=== PATIENT | female | born 1945 | race Caucasian/White ===

== ENCOUNTER 2016-10-14 04:42 | Emergency (ER) | payer MEDICARE ==
[~2016-10-14 04:42] MED LIST: ARMOUR THYROID30 MG PO; BACLOFEN10 MG PO; BENADRYL INJ50 MG/ML IV; CARAFATE1 G PO; COLACE100 MG PO; DIFLUCAN100 MG PO; DILAUDID2 MG PO; DITROPAN X5 MG/BOTTL PO; ELIQUIS2.5 MG PO; HYDROXYZINE HCL50 MG PO; IPRAT-ALBUT 0.5-3 ML UPD; K-DUR20 MEQ PO; LEVAQUIN500 MG PO; LIBRAX CAPSULE1 CAP PO; MULTI-DAY VITAM1 TAB PO; NEURONTIN800 MG PO; NICODERM C1 PATCH .1 TD; NICODERM C1 PATCH .2 TRANSDERM; NORCO 10/325 TA1 TA1 PO; NYSTATIN ORAL SU5 ML PO; ONDANSETRON4 MG/2 M3 IV; OXYBUTYNIN CHLOR5 MG PO; PERCOCET 10/3251 TA1 PO; PRILOSEC20 MG PO; PROTONIX40 MG PO; PROZAC20 MG PO; REGLAN10 MG PO; STERAPRED 5MG 125 MG PO; VALIUM10 MG PO; VOLTAREN100 GM TP; XANAX0.25 MG PO; XOPENEX 0.0.63 MG/3 UPD; ZANTAC300 MG PO; ZOFRAN4 MG PO
== END 2016-10-14 05:40 | disposition home or self-care (01) ==
LOC: D.ER 04:42
DX: S00.03XA Contusion of scalp, initial encounter (principal); W18.11XA Fall from or off toilet without subsequent striking against object, initial encounter; Y93.89 Activity, other specified; Y92.012 Bathroom of single-family (private) house as the place of occurrence of the external cause; S80.01XA Contusion of right knee, initial encounter

== ENCOUNTER → 2016-10-23 14:15 | Outpatient (CLI) | payer MEDICARE ==
[2015-03-04 10:55] VITALS: BMI 18.2
== END | disposition home or self-care (01) ==
LOC: D.CT 14:15
DX: M25.561 Pain in right knee (principal); W19.XXXA Unspecified fall, initial encounter

== ENCOUNTER 2017-01-22 17:15 | Observation (INO) | payer MEDICARE ==
[~2017-01-22] VITALS: Ht 172.7 cm; Wt 64.9 kg
--- NOTE | ~2017-01-22 | EC ---
PATIENT:CHYNA LINO DATE OF SERVICE: 01/23/17 SEX: F MEDICAL RECORD: [id number] DATE OF : [birth year] LOCATION:D.MS [place] AGE OF PATIENT: 71 ADMISSION DATE: 01/22/17 REFERRING PHYSICIAN: INTERPRETING PHYSICIAN: JUANA KELLEY MD ECHOCARDIOGRAM REPORT ECHO CHARGES 4 ECHO COMPLETE CLINICAL DIAGNOSIS: TIA ECHOCARDIOGRAPHIC MEASUREMENTS (adult normal given) AC root (d.<3.7cm) 3.1 cm LV Septum d (<1.2 cm> 1.2 cm Valve Excursion 1.2 cm LV Septum (systole) 1.9 cm Left Atria (s.<4.0cm> 2.9 cm LVPW d(<1.2cm) 1.1 cm RV (d.<2.3cm) 2.5 cm LVPW (sytole) 1.7 cm LV diastole(<5.6CM) 5.3 cm MV E-F(>70mm/sec) cm LV systole 2.9 cm LVOT Diameter 1.8 cm MV exc.(>10mm) cm Est.ejection fraction (50-75%) % Pericardial Effusion N DOPPLER: LVIT cm/sec A 56.0 cm/sec E 120 cm/sec LA cm/sec RVSP 48.0 mmHg LVOT 106 cm/sec AOP1/2T m/s Asc. Ao 139 cm/sec RVOT 52.0 cm/sec RA cm/sec PA 83.0 cm/sec AV Gradient Peak 7.7 mmHg AV Mean 4.1 mmHg AV Area 1.9 cm MV Gradient Peak 5.1 mmHg MV Mean 1.9 mmHg MV Area cm COMMENTS: Personal Banking Representative: 1 SHARONA [place] Outside Food Server: 1 Dr. Kelley TAPE# PACS TWO-DIMENSIONAL ECHOCARDIOGRAM WITH DOPPLER 1. Left ventricular chamber size is within normal limits. Left ventricular systolic function is normal. Overall ejection fraction is estimated at 60 percent. 2. Left atrium, right atrium, and right ventricular chamber sizes are within normal limits. 3. Valvular structures have normal structure and motion. 4. Doppler interrogation reveals trace mitral regurgitation, moderate tricuspid regurgitation; no other valvular insufficiency or stenosis. Pulmonary artery systolic pressure is mildly elevated estimated at 48 millimeters of mercury. ECHOCARDIOGRAM REPORT [id number] CHYNA LINO 5. No evidence of pericardial effusion or left ventricular thrombus. JUANA KELLEY MD CC: [id number] DICTATION DATE: 01/23/[address] PROCESSOR: VIMAL 01/24/17 1403 ADM IN [facility] [address] [id number]
[2017-01-22 18:24] LABS: BASOPHILS 0 % (0-2); EOSINOPHILS 0 % (0-7); HEMOGLOBIN 15.8 g/dL (12-16); IMMATURE GRANULOCYTES 0.2 % (0-5); LYMPHOCYTES 14.8 % (15-50); MCHC 33.6 g/dL (31.0-37.0); MCV 92.2 fL (80.0-100.0); MEAN PLATELET VOLUME 11.4 fL (7.4-10.4); MONOCYTES 5.8 % (2-11); NEUTROPHILS 79.2 % (40-80); RDW 14.2 % (11.5-14.5); WBC 8.5 10x3/uL (4.8-10.8)
[2017-01-22 18:31] LABS: PLATELET COUNT 146 10x3/uL (130-400)
[2017-01-22 18:47] LABS: APTT 27.9 SECONDS (22.8-39.4); INR 0.97 (0.85-1.17); PROTIME 12.7 SECONDS (11.6-15.0)
[2017-01-22 18:55] LABS: ALBUMIN 3.6 g/dL (3.4-5.0); ALKALINE PHOSPHATASE 87 U/L (46-116); ALT (SGPT) 13 U/L (10-68); CALC OSMOLALITY 277 mosm/kg (275-300); CALCIUM 9.3 mg/dL (8.5-10.1); CARBON DIOXIDE 23.9 mmol/L (21.0-32.0); CHLORIDE - SERUM 102 mmol/L (98-107); CREATININE - SERUM 0.8 mg/dL (0.6-1.3); GLUCOSE 117 mg/dL (74-106); POTASSIUM - SERUM 4.5 mmol/L (3.5-5.1); SODIUM 136 mmol/L (136-145); UREA NITROGEN 26 mg/dL (7-18); eGFR NON AFRICAN AMERICAN 75 mL/min (90-120)
[2017-01-22 20:39] LABS: CKMB 2.2 U/L (0.0-3.6); CREATINE KINASE 45 UL (21-215); TROPONIN-I 0.023 ng/mL (0.000-0.060)
--- NOTE | 2017-01-22 23:00 | NUR ---
RECIEVED PATIENT VIA STRETCHER WITH TECH FROM THE EMERGENCY DEPT. PATIENT AMBULATED FROM THE STRETCHER, OUTSIDE THE ROOM, TO THE BED, HELD PATIENT'S HAND TO PROVIDE SUPPORT, MINIMAL ASSISTANCE REQUIRED. PATIENT IS ALERT AND ORIENTED X'S 4. RESPIRATIONS ARE UNLABORED ON ROOM AIR, BUT AUDIBLE EXPIRATORY WHEEZES NOTED UPON AUSCULATION WITH STETHOSCOPE. PATIENT'S LEFT SIDE OF HER FACE IS DROOPING (PATIENT STATED HER RIGHT SIDE OF HER FACE WAS DROOPING THIS MORNING.) SPEECH IS CLEAR. PATIENT IS SWALLOWING THIN LIQUIDS WITH NO SIGNS OF ASPIRATION, NO COUGHING. PATIENT STATED SHE ATE A SANDWHICH IN THE ER. STUDIO ASSISTANT STRENGTHS EQUAL. MOVING ALL EXTREMETIES. PATIENT'S BILATERAL LOWER EXTREMETIES ARE COLD, WITH >3 SEC CAP REFILL. PATIENT'S FEET TURNED DARK RED WHEN SHE WALKED TO THE BED. PATIENT STATED THIS IS CHRONIC. BILATERAL LOWER EXTEMETIES ARE EQUALLY WEAK, PATIENT STATED THIS IS CHRONIC, SHE SAID SHE HAS SEVERE NEUROPATHY AND BULGDING DISCS IN SPINE PRESSING ON THE NERVES.
[2017-01-22 23:36] VITALS: BP 132/78; BMI 21.7
[2017-01-22] MEDS ORDERED: HYDROCODONE-APA1 TAB PO (23:43)
[2017-01-22] MEDS ORDERED: NEURONTIN800 MG PO (23:44)
[2017-01-22] MEDS ORDERED: VALIUM5 MG PO (23:48)
[2017-01-22] MEDS ORDERED: VITAMIN D250000 UNIT PO (23:51)
[2017-01-22] MEDS ORDERED: XOPENEX 0.0.63 MG/3 UPD (23:53)
[2017-01-22] MEDS ORDERED: ZOFRAN ODT4 MG/UDTAB PO (23:54)
[2017-01-22] MEDS ORDERED: VOLTAREN100 GM TOPICAL (23:55)
[2017-01-22] MEDS ORDERED: ULTRAM50 MG PO (23:56)
[2017-01-22] MEDS ORDERED: PHENERGAN25 M1 PO (23:56)
[2017-01-22] MEDS ORDERED: CORTISPORIN OTI10 M1 (23:57)
[2017-01-22] MEDS ORDERED: PROAIR HFA8.5 GM INH (23:59)
[2017-01-23] VITALS: BP 132/78
[2017-01-23 04:00] VITALS: BP 141/81
--- NOTE | 2017-01-23 07:20 | NUR ---
REPORT RCEIVED FROM BONDERITE OPERATOR NURSE. CALL LIGHT IN REACH.
[2017-01-23 07:25] LABS: CKMB 2.2 U/L (0.0-3.6); CREATINE KINASE 33 UL (21-215)
[2017-01-23 08:07] VITALS: BP 110/83
--- NOTE | 2017-01-23 08:30 | NUR ---
ASSISTED TO BSC AND BACK TO BED.PT WITHOUT DISTRESS.CALL LIGHT IN REACH.
--- NOTE | 2017-01-23 09:36 | NUR ---
TO MRI VIA WC.
[2017-01-23 09:44] LABS: BASOPHILS 0 % (0-2); EOSINOPHILS 0 % (0-7); HEMATOCRIT 44.6 % (36.0-48.0); HEMOGLOBIN 14.3 g/dL (12-16); IMMATURE GRANULOCYTES 0.3 % (0-5); LYMPHOCYTES 23.3 % (15-50); MCH 30.4 pg (26.0-34.0); MCHC 32.1 g/dL (31.0-37.0); MCV 94.7 fL (80.0-100.0); MEAN PLATELET VOLUME 11.6 fL (7.4-10.4); MONOCYTES 8.4 % (2-11); PLATELET COUNT 137 10x3/uL (130-400); RBC 4.71 10x6/uL (4.00-5.40); RDW 14.6 % (11.5-14.5); WBC 7.2 10x3/uL (4.8-10.8)
[2017-01-23 10:19] LABS: ALBUMIN 2.9 g/dL (3.4-5.0); BILIRUBIN - TOTAL 0.2 mg/dL (0.2-1.3); CALCIUM 8.5 mg/dL (8.5-10.1); CARBON DIOXIDE 24.8 mmol/L (21.0-32.0); CREATININE - SERUM 0.9 mg/dL (0.6-1.3); POTASSIUM - SERUM 4.8 mmol/L (3.5-5.1); PROTEIN - SERUM 6.7 g/dL (6.4-8.2)
--- NOTE | 2017-01-23 10:48 | NUR ---
ASSESSMENT COMPLETED. PROTONIX PO. CALL LIGHT IN REACH. WILL CONTINUE WITH PLAN OF CARE.
[2017-01-23 12:10] LABS: CKMB 1.9 U/L (0.0-3.6); CREATINE KINASE 32 UL (21-215); TROPONIN-I < 0.017 ng/mL (0.000-0.060)
[2017-01-23 12:17] VITALS: BP 130/82
--- NOTE | 2017-01-23 12:38 | NUR ---
AM MEDS ADMINISTERED PER AUGUST JAMES.
--- NOTE | 2017-01-23 14:03 | NUR ---
ZBIGNIEW PO ADMINISTERED PER AUGUST JAMES. CALL LIGHT IN REACH.
--- NOTE | 2017-01-23 15:29 | NUR ---
Patient Name: CHYNA LINO Admission Status: ER Accout number: [id number] Admission Date: 01-22-2017 : 1945 Admission Diagnosis: Attending: BRIANDA Current LOS: 1 Anticipated DC Date: Planned Disposition: Home Primary Insurance: MEDICARE A & B Discharge Planning Comments: CM met with patient to assess discharge planning needs. Patient lives at home independently. She has an aide from [facility] on [address]. Her daughter Sarah ([phone]) will be taking her home with patient is discharged. Patient currently has a nebulizer, cane, walker, and wheelchair at home. She denies any HH needs at this time. CM will continue to follow and assist as needed. PCP: [facility] [address] Sarah: (Daughter) [phone] Ex Chef: Janey Benson
--- NOTE | 2017-01-23 15:29 | NUR ---
* Is the patient Alert and Oriented? Yes 0 * How many steps to enter\exit or inside your home? 0 0 * PCP [facility] 0 * Pharmacy [facility] [facility] * Preadmission Environment Home Alone 0 * ADLs Independent 0 * Equipment Cane Nebulizer Rolling Walker Walker Wheelchair 0 * Other Equipment BLOOD PRESSURE MACHINE 0 * List name and contact numbers for known caregivers / representatives who currently or will assist patient after discharge: KYLE (DAUGHTER) [phone] 0 * Community resources currently utilized Other 0 * Please name any agencies selected above. [facility] 0 * Additional services required to return to the preadmission environment? No 0 * Can the patient safely return to the preadmission environment? Yes 0 * Has this patient been hospitalized within the prior 30 days at any hospital? No 0 Grand Total: 0
[2017-01-23 16:14] VITALS: BP 117/66
--- NOTE | 2017-01-23 16:40 | NUR ---
DENIES NEEDS A THIS TIME. CALL LIGHT IN REACH.
--- NOTE | 2017-01-23 18:40 | NUR ---
NO CHANGES IN INITIAL ASSESSMENT. CALL LIGHT IN REACH. STILL REFUSES SCDs. WILL CONTINUE WITH PLAN OF CARE.
[2017-01-23 19:00] VITALS: BP 139/74
--- NOTE | 2017-01-23 20:52 | NUR ---
NPO AT THIS TIME. SPEECH THERAPIST STATES I CAN GIVE HER PAIN MED CRUSHED WITH APPLESAUCE. ALSO GAVE ATIVAN AND NEURONTIN. VOLTAREN GEL AND EAR DROPS ADMINISTERED ALSO. STILL REFUSES SCDs. CALL LIGHT IN REACH. WILL CONTINUE WITH PLAN OF CARE.
--- NOTE | 2017-01-23 22:39 | NUR ---
LYING IN BED WITH EYES CLOSED. RESP EVEN AND UNLABORED. CALL LIGHT IN REACH.
--- NOTE | 2017-01-23 23:19 | NUR ---
REPORT RECIEVED ASSUMED CARE. PATIENT IN BED WITH IV INTACT. NO COMPLAINTS. STATES SHE WANTS ICE. KNOWS SHE IS NPO. CALL LIGHT WITHIN REACH.
--- NOTE | 2017-01-23 23:51 | NUR ---
REPORT GIVEN TO AUGUST LEO.
[2017-01-24] VITALS: BP 135/77
--- NOTE | 2017-01-24 02:12 | NUR ---
PATIENT IN BED WITH EYES CLOSED RESTING QUIETLY. NO COMPLAINTS OR SIGNS OF DISTRESS. CALL LIGHT WITHIN REACH.
--- NOTE | 2017-01-24 03:40 | NUR ---
ASSISTED PATIENT TO BSC AND BACK TO BED. BED ALARM ON. ICE PACK PLACED ON PATIENTS KNEE. IV INTACT. NO COMPLAINTS. CALL LIGHT WITHIN REACH.
[2017-01-24 04:00] VITALS: BP 152/81
[2017-01-24 05:53] LABS: BASOPHILS 0.1 % (0-2); EOSINOPHILS 0.1 % (0-7); HEMATOCRIT 44.7 % (36.0-48.0); HEMOGLOBIN 14.3 g/dL (12-16); IMMATURE GRANULOCYTES 0.2 % (0-5); LYMPHOCYTES 28.1 % (15-50); MCH 30.8 pg (26.0-34.0); MCV 96.1 fL (80.0-100.0); MEAN PLATELET VOLUME 10.9 fL (7.4-10.4); MONOCYTES 8.3 % (2-11); NEUTROPHILS 63.2 % (40-80); PLATELET COUNT 112 10x3/uL (130-400); RBC 4.65 10x6/uL (4.00-5.40); RDW 14.8 % (11.5-14.5); WBC 8.7 10x3/uL (4.8-10.8)
[2017-01-24 06:13] LABS: ALBUMIN 2.7 g/dL (3.4-5.0); ANION GAP 11.7 mmol/L (8-16); BILIRUBIN - TOTAL 0.2 mg/dL (0.2-1.3); CALCIUM 8.3 mg/dL (8.5-10.1); CREATININE - SERUM 0.9 mg/dL (0.6-1.3); POTASSIUM - SERUM 4.7 mmol/L (3.5-5.1); PROTEIN - SERUM 5.8 g/dL (6.4-8.2)
--- NOTE | 2017-01-24 07:50 | NUR ---
ASSESSMENT COMPLETE. IV TO L AC PATENT. NS INFUSING AT 125 CC/HR VIA PUMP. DARK AREA NOTED TO L FOOT. STATES THAT WHOLE BODY WILL TURN DARK WHEN HANGING DOWN FOR A WHILE. SILVANA MAT IN USE. R FACIAL DROOPING NOTED.DOT COMPLIANCE SPECIALIST SHOWING SR 70 PER TECH.
[2017-01-24 08:15] VITALS: BP 133/68
[2017-01-24 11:41] VITALS: BP 141/74
--- NOTE | 2017-01-24 12:00 | NUR ---
NO CHANGES NOTED AT PRESENT.
--- NOTE | 2017-01-24 12:30 | NUR ---
IV TO L AC PULLED OUT BY PATIENT. IV SITED TO L HAND WITH 22 GUAGE X 2 ATTEMPTS.
[2017-01-24 13:43] VITALS: Ht 172.7 cm; Wt 64.9 kg
[2017-01-24 16:00] VITALS: BP 127/70
--- NOTE | 2017-01-24 17:30 | NUR ---
TOLERATED MECHANICAL SOFT DIET WITHOUT DIFFICULTY.
[2017-01-24 20:00] VITALS: BP 113/62
--- NOTE | 2017-01-25 03:23 | NUR ---
PT SLEEPING. RESP EVEN, UNLABORED. NO DISTRESS NOTED. CONTINUE MANAGER CARGO'S PLAN OF CARE.
[2017-01-25 04:00] VITALS: BP 126/71
[2017-01-25 06:22] LABS: BASOPHILS 0.1 % (0-2); EOSINOPHILS 0.6 % (0-7); HEMATOCRIT 43.4 % (36.0-48.0); HEMOGLOBIN 13.6 g/dL (12-16); IMMATURE GRANULOCYTES 0.1 % (0-5); LYMPHOCYTES 28.5 % (15-50); MCH 30.1 pg (26.0-34.0); MCHC 31.3 g/dL (31.0-37.0); MEAN PLATELET VOLUME 11.4 fL (7.4-10.4); NEUTROPHILS 61.7 % (40-80); PLATELET COUNT 122 10x3/uL (130-400); RBC 4.52 10x6/uL (4.00-5.40); WBC 8.5 10x3/uL (4.8-10.8)
[2017-01-25 06:40] LABS: ALBUMIN 2.4 g/dL (3.4-5.0); ANION GAP 8.4 mmol/L (8-16); BILIRUBIN - TOTAL 0.3 mg/dL (0.2-1.3); CARBON DIOXIDE 29.7 mmol/L (21.0-32.0); CHOL - HDL RATIO 2.6 ratio (2.3-4.1); CREATININE - SERUM 0.9 mg/dL (0.6-1.3); LDL-HDL RATIO 1.2 ratio (1.5-3.5); POTASSIUM - SERUM 4.1 mmol/L (3.5-5.1); PROTEIN - SERUM 5.9 g/dL (6.4-8.2)
--- NOTE | 2017-01-25 07:15 | NUR ---
REPORT RECEIVED FROM FORESTRY TECHNICAL OFFICER NURSE. CALL LIGHT IN REACH.
[2017-01-25 08:09] VITALS: BP 162/81
--- NOTE | 2017-01-25 08:16 | NUR ---
ASSESSMENT COMPLETED. STILL REFUSING SCDs AT THIS ITME. STATES PAIN OF 8. SILVANA MAT ALARM IS ON. CALL LIGHT IN REACH. WILL CONTINUE WITH PLAN OF CARE.
--- NOTE | 2017-01-25 09:35 | NUR ---
AM MEDS ADMINISTERED. CALL LIGHT IN REACH.
--- NOTE | 2017-01-25 11:35 | NUR ---
ASSISTED UP TO BEDSIDE COMMODE. VOIDED WITHOUT DIFFICULTY. SILVANA MAT IN USE. ICEPACK IN USE TO FEET.
[2017-01-25 12:41] VITALS: BP 145/81
--- NOTE | 2017-01-25 13:15 | NUR ---
NOON AND AFTERNOON MEDS ADMINISTERED. CALL LIGHT IN REACH.
--- NOTE | 2017-01-25 14:50 | NUR ---
OT NOTE: PT COMPLETED BED TO BSC TRANSFERS AND BED MOB WITH CGA. PT COMPLETED TOILETING AND HYGIENE TASK WITH SET UP. THANK YOU, SANDY GA/Neyda
--- NOTE | 2017-01-25 15:20 | NUR ---
ASSISTED TO BSC AND BACK TO BED. DENIES NEEDS AT THIS TIME. CALL LIGHT IN REACH.
[2017-01-25] MEDS ORDERED: PLAVIX75 MG PO (15:28)
[2017-01-25] MEDS ORDERED: PRAVACHOL20 MG PO (15:28)
--- NOTE | 2017-01-25 16:25 | NUR ---
AFTERNOON MEDS ADMINISTERED. CALL LIGHT IN REACH.
--- NOTE | 2017-01-25 16:53 | NUR ---
CM REASSESSMENT NOTE: PATIENT IS D/C HOME TODAY BY PRIVATE CAR/FRIEND (CHRIST) DRIVING. PATIENT HAS [facility] WITH CARE GIVERS AND HOUSE CALLS. PATIENT STATED HER DAUGHTER OR SOMEONE WILL BE WITH HER AT ALL TIMES. PATIENT REFUSED HOME HEALTH. PATIENT HAD NO OTHER NEEDS FOR DISCHARGE.
--- NOTE | 2017-01-25 18:10 | NUR ---
NO CHANGES IN INITIAL ASSESMSENT. CALL LIGHT IN REACH. WILL CONTINUE WITH PLAN OF CARE.
--- NOTE | 2017-01-25 19:53 | NUR ---
CALLED DR ANAND, HE SAID HE WOULD FOLLOW UP WITH THE RESULTS. PATIENT WILL BE DISCHARGED.
--- NOTE | 2017-01-25 20:18 | NUR ---
WENT OVER D/C INTRUCTIONS WITH PATIENT. ALL QUESTIONS ANSWERED AT BEDSIDE. PAPERWORK WAS SIGNED AND TEACHING FORMS GIVEN TO PATIENT. PIV FROM RAC AND LEFT HAND D/C WITH CATH INTACT. PATIENT IS CALLING HER RIDE AND WILL BE TAKEN DOWNSTAIRS VIA WHEELCHAIR WITH STAFF.
--- NOTE | 2017-01-25 20:32 | NUR ---
PATIENT LEFT THE FLOOR WITH BELONGINGS WITH FISH BAIT PROCESSING SUPERVISOR VIA WHEEL CHAIR.
== END 2017-01-25 20:32 | disposition home or self-care (01) ==
LOC: D.ER 17:15 → D.MS 22:00 → OBSVTIME 22:00 → D.MS 22:00
PROVIDERS: Emergency Medicine; Family Medicine; ADMIT Family Medicine
DX: I63.9 Cerebral infarction, unspecified (principal); R47.81 Slurred speech; R29.810 Facial weakness; J44.9 Chronic obstructive pulmonary disease, unspecified; I10 Essential (primary) hypertension; F17.203 Nicotine dependence unspecified, with withdrawal; F41.9 Anxiety disorder, unspecified

== ENCOUNTER 2017-04-02 19:01 | Observation (INO) | payer MEDICARE ==
[~2017-04-02] VITALS: Ht 172.7 cm; Wt 65.9 kg
[~2017-04-02 19:01] MED LIST changes: +CORTISPORIN OTI10 M1; +HYDROCODONE-APA1 TAB PO; +PHENERGAN25 M1 PO; +PLAVIX75 MG PO; +PRAVACHOL20 MG PO; +PROAIR HFA8.5 GM INH; +ULTRAM50 MG PO; +VALIUM5 MG PO; +VITAMIN D250000 UNIT PO; +VOLTAREN100 GM TOPICAL; +ZOFRAN ODT4 MG/UDTAB PO
[2017-04-02 19:56] LABS: BASOPHILS 0 % (0-2); EOSINOPHILS 0 % (0-7); HEMATOCRIT 42.8 % (36.0-48.0); HEMOGLOBIN 14.2 g/dL (12-16); IMMATURE GRANULOCYTES 0.3 % (0-5); LYMPHOCYTES 12.4 % (15-50); MCHC 33.2 g/dL (31.0-37.0); MCV 93.4 fL (80.0-100.0); MEAN PLATELET VOLUME 10.6 fL (7.4-10.4); MONOCYTES 1.9 % (2-11); NEUTROPHILS 85.4 % (40-80); RBC 4.58 10x6/uL (4.00-5.40); RDW 14.4 % (11.5-14.5); WBC 6.4 10x3/uL (4.8-10.8)
[2017-04-02 20:01] LABS: PLATELET COUNT 163 10x3/uL (130-400)
[2017-04-02 20:31] LABS: ALBUMIN 3.3 g/dL (3.4-5.0); ALKALINE PHOSPHATASE 69 U/L (46-116); ALT (SGPT) 24 U/L (10-68); CALC OSMOLALITY 267 mosm/kg (275-300); CALCIUM 8.7 mg/dL (8.5-10.1); CARBON DIOXIDE 25.6 mmol/L (21.0-32.0); CHLORIDE - SERUM 99 mmol/L (98-107); CREATININE - SERUM 0.7 mg/dL (0.6-1.3); GLUCOSE 125 mg/dL (74-106); POTASSIUM - SERUM 4.8 mmol/L (3.5-5.1); PROTEIN - SERUM 6.8 g/dL (6.4-8.2); SODIUM 132 mmol/L (136-145); UREA NITROGEN 17 mg/dL (7-18); eGFR NON AFRICAN AMERICAN 88 mL/min (90-120)
[2017-04-02 20:42] LABS: CKMB 2.8 U/L (0.0-3.6); CREATINE KINASE 118 UL (21-215); TROPONIN-I < 0.017 ng/mL (0.000-0.060)
--- NOTE | 2017-04-03 00:06 | NUR ---
RECIEVED PT TO FLOOR FROM ED VIA WHEELCHAIR. PT TRANSFERED SELF TO BED. ALERT AND ORIENTED AND ABLE TO VERBALIZE NEEDS. IV IS PATENT AND SALINE LOC. PT STATES PAIN IS 8/10. PT IS ORIENTED TO ROOM AND USE OF CALL LIGHT. NO NEEDS ARE VERBALIZED AT THIS TIME. WILL CONTINUE TO MONITOR. SIDE RAILS ARE UP X 2. BED IS IN LOWEST POSITION. CALL LIGHT IS WITHIN REACH.
--- NOTE | 2017-04-03 00:35 | NUR ---
URINE SENT TO LAB FOR WARRENTED TESTS.
[2017-04-03 00:57] LABS: APPEARANCE CLEAR (CLEAR); BILIRUBIN NEGATIVE (NEGATIVE); COLOR YELLOW (YELLOW); GLUCOSE NEGATIVE (NEGATIVE); KETONE NEGATIVE (NEGATIVE); LEUKOCYTE ESTERASE NEGATIVE (NEGATIVE); NITRITE NEGATIVE (NEGATIVE); PROTEIN NEGATIVE (NEGATIVE); SPECIFIC GRAVITY 1.005 (1.005-1.020); UROBILINOGEN NORMAL (NORMAL)
--- NOTE | 2017-04-03 00:59 | NUR ---
NEW ORDERS RECIEVED AT THIS TIME. CALLED TECHNICAL SPECIALIST JOEL TO PULL MEDICATION. JOEL STATED SHE WOULD BE HERE TO PULL IN A FEW MINUTES SHE WAS ON ANOTHER UNIT.
--- NOTE | 2017-04-03 01:40 | NUR ---
CALLED SUPERVISOR ENGINE ASSEMBLY JOEL FOR MEDICATION. NO ANSWER ON PHONE.
--- NOTE | 2017-04-03 01:50 | NUR ---
CALLED DIRECTOR OF CATH LAB AGAIN. NO ANSWER.
[2017-04-03 04:00] VITALS: BP 135/82
[2017-04-03 04:03] VITALS: BP 137/86; Ht 172.7 cm; Wt 65.9 kg
[2017-04-03 06:06] LABS: BASOPHILS 0 % (0-2); EOSINOPHILS 0 % (0-7); HEMATOCRIT 41.7 % (36.0-48.0); HEMOGLOBIN 13.8 g/dL (12-16); IMMATURE GRANULOCYTES 0.2 % (0-5); LYMPHOCYTES 18.2 % (15-50); MCH 30.9 pg (26.0-34.0); MCHC 33.1 g/dL (31.0-37.0); MCV 93.3 fL (80.0-100.0); MEAN PLATELET VOLUME 10.7 fL (7.4-10.4); MONOCYTES 1.9 % (2-11); NEUTROPHILS 79.7 % (40-80); PLATELET COUNT 152 10x3/uL (130-400); RBC 4.47 10x6/uL (4.00-5.40); RDW 14.6 % (11.5-14.5); WBC 4.8 10x3/uL (4.8-10.8)
[2017-04-03 06:28] LABS: CALC OSMOLALITY 272 mosm/kg (275-300); CALCIUM 8.5 mg/dL (8.5-10.1); CHLORIDE - SERUM 100 mmol/L (98-107); CREATININE - SERUM 0.8 mg/dL (0.6-1.3); GLUCOSE 126 mg/dL (74-106); POTASSIUM - SERUM 4.7 mmol/L (3.5-5.1); SODIUM 134 mmol/L (136-145); UREA NITROGEN 21 mg/dL (7-18); eGFR NON AFRICAN AMERICAN 75 mL/min (90-120)
[2017-04-03 07:55] VITALS: BP 123/65
--- NOTE | 2017-04-03 09:35 | NUR ---
PATIENT IN MID LIM POSITION RESTING WITH EYES CLOSED. RESPIRATIONS EVEN AND UNLABORED. SIDE RAILS UP X2. BED IN LOW POSITION. CALL LIGHT IN REACH.
[2017-04-03] MEDS ORDERED: CATAPRES0.1 MG PO (12:12)
[2017-04-03 12:19] VITALS: BP 132/77
--- NOTE | 2017-04-03 13:40 | NUR ---
DISCHARGE INSTRUCTIONS GIVEN, QUESTIONS ANSWERED, IV REMOVED TIP INTACT, DISCHARGED PER WC WITH BELONGNINGS
--- NOTE | 2017-04-05 11:28 | EC ---
PATIENT:CHYNA LINO DATE OF SERVICE: 04/02/17 SEX: F MEDICAL RECORD: [id number] DATE OF : [birth year] LOCATION:D.MS [place] AGE OF PATIENT: 71 ADMISSION DATE: 04/02/17 REFERRING PHYSICIAN: INTERPRETING PHYSICIAN: MAIDA DAN MD ECHOCARDIOGRAM REPORT ECHO CHARGES 5 ECHO LIMITED 1 DOPPLER ECHO COLOR FLOW 2 DOPPLER ECHO PULSE CLINICAL DIAGNOSIS: TIA ECHOCARDIOGRAPHIC MEASUREMENTS (adult normal given) AC root (d.<3.7cm) 0 cm LV Septum d (<1.2 cm> 0 cm Valve Excursion 0 cm LV Septum (systole) 0 cm Left Atria (s.<4.0cm> 4.4 cm LVPW d(<1.2cm) 0 cm RV (d.<2.3cm) 0 cm LVPW (sytole) 0 cm LV diastole(<5.6CM) 0 cm MV E-F(>70mm/sec) 0 cm LV systole 0 cm LVOT Diameter 0 cm MV exc.(>10mm) 0 cm Est.ejection fraction (50-75%) % Pericardial Effusion N DOPPLER: LVIT cm/sec A 0 cm/sec E 0 cm/sec LA 0 cm/sec RVSP 39.3 mmHg LVOT 0 cm/sec AOP1/2T 0 m/s Asc. Ao 0 cm/sec RVOT 0 cm/sec RA 0 cm/sec PA 0 cm/sec AV Gradient Peak 0 mmHg AV Mean 0 mmHg AV Area 0 cm MV Gradient Peak 0 mmHg MV Mean 0 mmHg MV Area 0 cm COMMENTS: LIMITED STUDY (2-D,COLOR,DOPPLER) COMPLETE ECHO DONE ON 01/23/17 Primary Substance Abuse Counselor: Elda TABOR VINITA Ethylbenzene Cracking Supervisor: Osmin Dan TAPE# PACS DATE OF SERVICE: 04/03/2017 Transthoracic Echocardiogram FINDINGS: 1. Left ventricle has evidence of mild concentric left ventricular hypertrophy. The overall ejection fraction is well preserved. 2. The right ventricular function is normal, although the right ventricle itself is mildly dilated. 3. The left atrium is mildly dilated. ECHOCARDIOGRAM REPORT [id number] CHYNA LINO 4. The mitral valve has trace to mild mitral regurgitation. 5. Tricuspid valve shows trace tricuspid regurgitation with an RVSP of 35 mmHg. 6. The pulmonary valve is grossly normal. 7. The pericardium is grossly normal. CONCLUSIONS: The patient has no significant changes on the echocardiographic appearance of her heart, has preserved LV systolic function and evidence of mild hypertensive heart disease. TRANSINT:[id number] Voice Confirmation ID: [id number] DOCUMENT ID: [id number] MAIDA DAN MD at 1128 CC: [id number] DICTATION DATE: 04/04/17 164 EQUIPMENT HIRE MANAGER: 04/04/172041 DIS IN 04/03/17 [facility] [address] [place] [address]
== END 2017-04-03 13:41 | disposition home or self-care (01) ==
LOC: D.ER 19:01 → D.MS 22:31 → OBSVTIME 22:31 → D.MS 22:31
PROVIDERS: Family Medicine; ADMIT Family Medicine
DX: K58.9 Irritable bowel syndrome, unspecified (principal); R51 Headache; F41.9 Anxiety disorder, unspecified; F17.200 Nicotine dependence, unspecified, uncomplicated

== ENCOUNTER 2017-06-24 09:57 | Day surgery (SDC) | payer MEDICARE ==
[~2017-06-24] VITALS: Ht 172.7 cm; Wt 66.7 kg
[~2017-06-24 09:57] MED LIST changes: +CATAPRES0.1 MG PO
[2017-06-24 12:09] LABS: HEMOGLOBIN 14.9 g/dL (12-16); MCH 31.9 pg (26.0-34.0); MCHC 32.4 g/dL (31.0-37.0); MCV 98.5 fL (80.0-100.0); MEAN PLATELET VOLUME 10.6 fL (7.4-10.4); RBC 4.67 10x6/uL (4.00-5.40); RDW 15.2 % (11.5-14.5); WBC 8.4 10x3/uL (4.8-10.8)
[2017-06-24] MEDS ORDERED: HYDROCODONE-APA1 TAB PO (12:23)
[2017-06-24] MEDS ORDERED: OMEPRAZOLE20 M1 PO (12:25)
[2017-06-24] MEDS ORDERED: FLUTICASONE PRO16 GM NASAL (12:26)
[2017-06-24] MEDS ORDERED: VALIUM5 MG PO (12:26)
[2017-06-24] MEDS ORDERED: VOLTAREN100 GM TOPICAL (12:27)
[2017-06-24 12:54] VITALS: BP 122/72; Ht 172.7 cm; Wt 66.7 kg
--- NOTE | 2017-06-24 17:58 | OP ---
PATIENT NAME: CHYNA LINO MEDICAL RECORD: [id number] :[birth year] LOCATION:DMART[facility] ADMISSION DATE: SURGEON: KERI SINGLETON MD DATE OF OPERATION: 06/24/2017 PREOPERATIVE DIAGNOSIS: Painful protruding hardware, right knee. POSTOPERATIVE DIAGNOSIS: Painful protruding hardware, right knee. PROCEDURE: Removal of hardware, right knee. SURGEON: Keri Singleton MD ANESTHESIA: General. INTRAOPERATIVE COMPLICATIONS: None. SUMMARY OF PATHOLOGIC FINDINGS: The hardware in question was protruding into the skin, but not through. OPERATIVE SUMMARY IN DETAIL: After obtaining the appropriate preoperative orthopedic surgery consent as well as anesthetic consultation, evaluation and clearance, the patient was brought to the operating room and placed on the operating table in supine position. After general laryngeal mask was administered, tourniquet was placed about the proximal aspect of the right lower extremity and that was not used during the case. Right lower extremity was prepped and draped in routine sterile fashion. A very small incision was made over the tip of the screw. The screw was then backed out to approximately 80 mm long. It came out with very little degree of difficulty. No other hardware was prominent at this time. Wound was irrigated and closed with 4-0 Prolene. Sterile dressings were applied. The patient was awakened and taken to recovery room in stable condition. All final needle and sponge counts were correct. TRANSINT:[id number] Voice Confirmation ID: [id number] DOCUMENT ID: [id number] KERI SINGLETON MD at 1758 CC: [id number] DICTATION DATE: 06/24/17 1516 TEACHER DANCING: 06/24/17 1637 [facility] [address] [id number]
== END 2017-06-24 17:55 | disposition home or self-care (01) ==
LOC: D.OPS 09:57 → D.PAN 12:00 → D.OPS 12:25 → D.PAN 12:30 → D.OPS 12:30 → D.PAN 14:00 → D.OPS 15:00 → D.PAN 15:00 → D.OPS 17:55
PROVIDERS: Anesthesiology
DX: T85.9XXA Unspecified complication of internal prosthetic device, implant and graft, initial encounter (principal); M25.561 Pain in right knee; Z87.891 Personal history of nicotine dependence; K21.9 Gastro-esophageal reflux disease without esophagitis; Z01.812 Encounter for preprocedural laboratory examination

== ENCOUNTER 2017-09-18 12:18 | Inpatient (IN) | payer MEDICARE, MEDICAID ==
[~2017-09-18] VITALS: Ht 172.7 cm; Wt 72.3 kg
--- NOTE | ~2017-09-18 | CN ---
PATIENT NAME:CHYNA LINO MEDICAL RECORD: [id number] : [birth year] LOCATION:DPawel D.2107 ADMIT DATE: 09/18/17 ACCOUNT: [id number] CONSULTING PHYSICIAN: JEAN-PAUL BYRD MD REFERRING PHYSICIAN: WINTER MADRIGAL MD DATE OF CONSULTATION: 09/20/2017 HISTORY OF PRESENT ILLNESS: A 71-year-old lady with known history of coronary artery disease, status post intervention. She has a history of obstructive pulmonary disease, admitted with pneumonitis with about a 3-day history of feeling poorly. She had a workup. She has been having some dizziness, having extensive workup this summer including carotid Dopplers, event monitor, et cetera, that was negative. She has been having some atypical chest pain, really not classic for angina, not classic for pleurisy. We are asked to see her concerning her cardiovascular status. PAST MEDICAL HISTORY: Includes: 1. History of coronary artery disease. 2. Dyslipidemia. UNABLE TO TOLERANT STATINS IN THE PAST. 3. Osteoarthritis. 4. Obstructive pulmonary disease. MEDICATIONS: Includes Baclofen 10 t.i.d., ProAir, Cavalier 10/325, Valium 5 mg b.i.d. p.r.n., and tramadol 50 q.6 p.r.n. SOCIAL HISTORY: Smokes a pack a day. Nondrinker. Easily takes care of her ADLs. REVIEW OF SYSTEMS: The patient reports easy bruising but reports no swollen glands. The patient reports no fever, no night sweats, no significant weight gain, no significant weight loss. No significant exercise tolerance. The patient reports no dry eyes, no irritation, no vision change. Patient reports no difficulty hearing and no ear pain. Patient reports no frequent nose bleeds or nose and sinus problems. Patient reports on arm pain on exertion. No shortness of breath while lying down. No history of heart murmur. Patient reports no cough, no wheezing or coughing up blood. Patient reports no abdominal pain, no vomiting. Normal appetite. No diarrhea and not vomiting blood. No nausea and no constipation. Patient reports no incontinence. No difficulty urinating. No hematuria. No increased frequency. Patient reports no muscle aches. No weakness, no arthralgias, no back pain. No swelling of the extremities. Patient reports no abnormal mole, no jaundice, no rashes. Reports no loss of consciousness. No weakness and no numbness. No seizures, dizziness, or headaches. The patient reports no depression, no sleep disturbance, feeling safe in a relationship and no alcohol abuse. Patient reports on fatigue. Reports no runny nose or sinus pressure. No itching, no hives, and no frequent sneezing. PHYSICAL EXAMINATION: GENERAL: Pleasant female in no acute distress. VITAL SIGNS: 101/56, pulse 83, and regular. HEENT: Normocephalic, atraumatic. NECK: No JVD or bruit. HEART: Tones are distant. No obvious gallops. LUNGS: Prolonged expiratory phase with expiratory wheezes. ABDOMEN: Soft, nontender. CONSULT REPORT [id number] CHYNA LINO EXTREMITIES: Pulses 2+ with no edema. NEUROLOGIC: Grossly intact. IMPRESSION: Somewhat atypical chest pain, maybe related to the pneumonitis. No evidence of ischemia via enzymes. Agree with current management. TRANSINT:[id number] Voice Confirmation ID: [id number] DOCUMENT ID: [id number] JEAN-PAUL BYRD MD at 1341 CC: [id number] DICTATION DATE: 09/20/17 0852 DIRECTOR OF REHABILITATIVE SERVICES: 09/20/17 0926 ADM IN [facility] [address] [place] [address]
[~2017-09-18 12:18] MED LIST changes: +FLUTICASONE PRO16 GM NASAL; +OMEPRAZOLE20 M1 PO
[2017-09-18 13:36] LABS: BASOPHILS 0.1 % (0-2); EOSINOPHILS 0.1 % (0-7); HEMATOCRIT 51.3 % (36.0-48.0); IMMATURE GRANULOCYTES 0.3 % (0-5); LYMPHOCYTES 28.2 % (15-50); MCH 32.5 pg (26.0-34.0); MCHC 33.1 g/dL (31.0-37.0); MCV 98.1 fL (80.0-100.0); MONOCYTES 7.8 % (2-11); NEUTROPHILS 63.5 % (40-80); PLATELET COUNT 142 10x3/uL (130-400); RBC 5.23 10x6/uL (4.00-5.40); RDW 14.8 % (11.5-14.5); WBC 7.6 10x3/uL (4.8-10.8)
[2017-09-18 13:49] LABS: ALBUMIN 3.7 g/dL (3.4-5.0); BILIRUBIN - TOTAL 0.78 mg/dL (0.2-1.3); CALCIUM 9.3 mg/dL (8.5-10.1); CARBON DIOXIDE 22.8 mmol/L (21.0-32.0); CREATININE - SERUM 1.5 mg/dL (0.6-1.3); POTASSIUM - SERUM 4.8 mmol/L (3.5-5.1); PROTEIN - SERUM 8.3 g/dL (6.4-8.2)
[2017-09-18 15:19] LABS: APPEARANCE CLEAR (CLEAR); BILIRUBIN NEGATIVE (NEGATIVE); COLOR YELLOW (YELLOW); GLUCOSE NEGATIVE (NEGATIVE); KETONE LARGE mg/dL (NEGATIVE); NITRITE NEGATIVE (NEGATIVE); PROTEIN TRACE mg/dL (NEGATIVE); UROBILINOGEN NORMAL (NORMAL)
[2017-09-19 01:38] VITALS: BP 142/80
[2017-09-19 05:21] VITALS: BP 129/79
[2017-09-19 08:45] VITALS: BP 133/67
[2017-09-19 20:00] VITALS: BP 109/63
[2017-09-20] VITALS: BP 130/72
[2017-09-20 04:00] VITALS: BP 122/73
[2017-09-20 05:18] VITALS: Ht 172.7 cm; Wt 72.3 kg
[2017-09-20 07:53] LABS: HEMATOCRIT 42.1 % (36.0-48.0); HEMOGLOBIN 13.7 g/dL (12-16); MCH 31.7 pg (26.0-34.0); MCHC 32.5 g/dL (31.0-37.0); MCV 97.5 fL (80.0-100.0); MEAN PLATELET VOLUME 10.3 fL (7.4-10.4); RBC 4.32 10x6/uL (4.00-5.40)
[2017-09-20 07:54] LABS: CALCIUM 9.1 mg/dL (8.5-10.1); CHLORIDE - SERUM 98 mmol/L (98-107); CREATININE - SERUM 1.2 mg/dL (0.6-1.3); SODIUM 134 mmol/L (136-145); eGFR NON AFRICAN AMERICAN 47 mL/min (90-120)
[2017-09-20 07:55] LABS: CALC OSMOLALITY 269 mosm/kg (275-300); CARBON DIOXIDE 31.4 mmol/L (21.0-32.0); GLUCOSE 127 mg/dL (74-106); POTASSIUM - SERUM 3.9 mmol/L (3.5-5.1); TROPONIN-I < 0.017 ng/mL (0.000-0.060); UREA NITROGEN 13 mg/dL (7-18)
[2017-09-20 08:08] VITALS: BP 101/56
[2017-09-20 08:27] LABS: PLATELET COUNT 87 10x3/uL (130-400); WBC 3.3 10x3/uL (4.8-10.8)
[2017-09-20 08:51] LABS: EOSINOPHILS 2 % (0-7); LYMPHOCYTES 62 % (15-50); MONOCYTES 4 % (2-11); NEUTROPHILS 32 % (40-80); PLATELET ESTIMATE DECREASED
[2017-09-20 11:02] VITALS: BP 105/67
[2017-09-20 15:16] VITALS: BP 116/68
[2017-09-20 20:00] VITALS: BP 141/80
[2017-09-21] VITALS: BP 137/75
[2017-09-21 04:00] VITALS: BP 104/61
[2017-09-21 04:41] LABS: BASOPHILS 0 % (0-2); EOSINOPHILS 0 % (0-7); HEMOGLOBIN 12.5 g/dL (12-16); IMMATURE GRANULOCYTES 0.2 % (0-5); LYMPHOCYTES 7.9 % (15-50); MCH 31.6 pg (26.0-34.0); MCHC 32.9 g/dL (31.0-37.0); MCV 96.2 fL (80.0-100.0); MEAN PLATELET VOLUME 10.7 fL (7.4-10.4); NEUTROPHILS 87.9 % (40-80); PLATELET COUNT 82 10x3/uL (130-400); RBC 3.95 10x6/uL (4.00-5.40); RDW 13.6 % (11.5-14.5)
[2017-09-21 04:48] LABS: WBC 4.3 10x3/uL (4.8-10.8)
[2017-09-21 05:18] LABS: ANION GAP 12.1 mmol/L (8-16); CALCIUM 8.5 mg/dL (8.5-10.1); CARBON DIOXIDE 29.8 mmol/L (21.0-32.0); CREATININE - SERUM 0.9 mg/dL (0.6-1.3); POTASSIUM - SERUM 3.9 mmol/L (3.5-5.1)
[2017-09-21 09:47] VITALS: BP 124/71
[2017-09-21 12:42] VITALS: BP 96/63
[2017-09-21 18:13] VITALS: BP 127/74
[2017-09-21 21:35] VITALS: BP 128/77
[2017-09-22 01:24] VITALS: BP 132/81
[2017-09-22 06:00] LABS: BASOPHILS 0 % (0-2); EOSINOPHILS 0 % (0-7); HEMATOCRIT 38.9 % (36.0-48.0); HEMOGLOBIN 12.8 g/dL (12-16); IMMATURE GRANULOCYTES 0.4 % (0-5); LYMPHOCYTES 4.7 % (15-50); MCH 31.7 pg (26.0-34.0); MCHC 32.9 g/dL (31.0-37.0); MCV 96.3 fL (80.0-100.0); MEAN PLATELET VOLUME 11.5 fL (7.4-10.4); MONOCYTES 3.9 % (2-11); PLATELET COUNT 90 10x3/uL (130-400); RBC 4.04 10x6/uL (4.00-5.40)
[2017-09-22 06:01] LABS: WBC 7.6 10x3/uL (4.8-10.8)
[2017-09-22 06:16] LABS: CALC OSMOLALITY 289 mosm/kg (275-300); CALCIUM 8.6 mg/dL (8.5-10.1); CARBON DIOXIDE 28.2 mmol/L (21.0-32.0); CHLORIDE - SERUM 106 mmol/L (98-107); CREATININE - SERUM 0.8 mg/dL (0.6-1.3); GLUCOSE 161 mg/dL (74-106); POTASSIUM - SERUM 3.8 mmol/L (3.5-5.1); SODIUM 143 mmol/L (136-145); eGFR NON AFRICAN AMERICAN 75 mL/min (90-120)
[2017-09-22 06:19] LABS: UREA NITROGEN 18 mg/dL (7-18)
[2017-09-22 06:30] VITALS: BP 111/70
[2017-09-22 09:10] VITALS: BP 148/91
[2017-09-22 12:42] VITALS: BP 134/80
[2017-09-22 20:43] VITALS: BP 150/78
[2017-09-23 00:30] VITALS: BP 133/79
[2017-09-23 06:29] LABS: BASOPHILS 0 % (0-2); EOSINOPHILS 0 % (0-7); HEMATOCRIT 39.4 % (36.0-48.0); HEMOGLOBIN 12.8 g/dL (12-16); IMMATURE GRANULOCYTES 0.4 % (0-5); LYMPHOCYTES 4.6 % (15-50); MCH 31.4 pg (26.0-34.0); MCHC 32.5 g/dL (31.0-37.0); MCV 96.6 fL (80.0-100.0); MEAN PLATELET VOLUME 12.3 fL (7.4-10.4); MONOCYTES 5.3 % (2-11); NEUTROPHILS 89.7 % (40-80); PLATELET COUNT 98 10x3/uL (130-400); RBC 4.08 10x6/uL (4.00-5.40); RDW 14.4 % (11.5-14.5); WBC 9.9 10x3/uL (4.8-10.8)
[2017-09-23 06:36] LABS: CALC OSMOLALITY 286 mosm/kg (275-300); CALCIUM 8.3 mg/dL (8.5-10.1); CARBON DIOXIDE 29.4 mmol/L (21.0-32.0); CHLORIDE - SERUM 107 mmol/L (98-107); CREATININE - SERUM 0.7 mg/dL (0.6-1.3); GLUCOSE 128 mg/dL (74-106); POTASSIUM - SERUM 3.9 mmol/L (3.5-5.1); SODIUM 142 mmol/L (136-145); UREA NITROGEN 19 mg/dL (7-18); eGFR NON AFRICAN AMERICAN 88 mL/min (90-120)
[2017-09-23 09:19] VITALS: BP 145/88
[2017-09-23 11:39] VITALS: BP 129/81
[2017-09-23 15:32] VITALS: BP 140/79
[2017-09-23 19:00] VITALS: BP 141/81
[2017-09-24 04:00] VITALS: BP 131/66
[2017-09-24 06:06] LABS: BASOPHILS 0 % (0-2); EOSINOPHILS 0 % (0-7); HEMATOCRIT 38.9 % (36.0-48.0); HEMOGLOBIN 12.7 g/dL (12-16); IMMATURE GRANULOCYTES 0.3 % (0-5); LYMPHOCYTES 5.8 % (15-50); MCH 31.6 pg (26.0-34.0); MCHC 32.6 g/dL (31.0-37.0); MCV 96.8 fL (80.0-100.0); MEAN PLATELET VOLUME 12.6 fL (7.4-10.4); MONOCYTES 5.6 % (2-11); NEUTROPHILS 88.3 % (40-80); PLATELET COUNT 112 10x3/uL (130-400); RBC 4.02 10x6/uL (4.00-5.40); RDW 14.3 % (11.5-14.5); WBC 9.7 10x3/uL (4.8-10.8)
[2017-09-24 06:21] LABS: CALCIUM 8.7 mg/dL (8.5-10.1); CARBON DIOXIDE 27.2 mmol/L (21.0-32.0); POTASSIUM - SERUM 4.2 mmol/L (3.5-5.1)
[2017-09-24 06:27] LABS: CREATININE - SERUM 0.9 mg/dL (0.6-1.3)
[2017-09-24 08:14] VITALS: BP 143/82
[2017-09-24 11:53] VITALS: BP 140/95
[2017-09-24 16:29] VITALS: BP 152/95
[2017-09-24 19:00] VITALS: BP 132/93
[2017-09-25 03:41] VITALS: BP 136/80
[2017-09-25 04:00] VITALS: BP 142/81
[2017-09-25 05:48] LABS: BASOPHILS 0 % (0-2); EOSINOPHILS 0.1 % (0-7); HEMATOCRIT 38.7 % (36.0-48.0); HEMOGLOBIN 12.7 g/dL (12-16); IMMATURE GRANULOCYTES 0.4 % (0-5); LYMPHOCYTES 21.9 % (15-50); MCH 31.7 pg (26.0-34.0); MCHC 32.8 g/dL (31.0-37.0); MCV 96.5 fL (80.0-100.0); MEAN PLATELET VOLUME 12.4 fL (7.4-10.4); MONOCYTES 11.9 % (2-11); NEUTROPHILS 65.7 % (40-80); PLATELET COUNT 123 10x3/uL (130-400); RBC 4.01 10x6/uL (4.00-5.40); RDW 14.4 % (11.5-14.5); WBC 7.4 10x3/uL (4.8-10.8)
[2017-09-25 06:08] LABS: ANION GAP 11.6 mmol/L (8-16); CALCIUM 8.7 mg/dL (8.5-10.1); CARBON DIOXIDE 29.6 mmol/L (21.0-32.0); CREATININE - SERUM 0.9 mg/dL (0.6-1.3); POTASSIUM - SERUM 4.2 mmol/L (3.5-5.1)
[2017-09-25 08:39] VITALS: BP 144/106
[2017-09-25 11:10] VITALS: BP 116/75
[2017-09-25 15:06] VITALS: BP 113/75
[2017-09-25 19:00] VITALS: BP 135/83
[2017-09-26 04:00] VITALS: BP 155/97
[2017-09-26 07:44] VITALS: BP 146/82
[2017-09-26] MEDS ORDERED: FLORAJEN3 CAPS460 MG PO (10:54)
[2017-09-26] MEDS ORDERED: LEVAQUIN750 MG PO (10:55)
[2017-09-26] MEDS ORDERED: PREDNISONE10 MG PO (10:56)
[2017-09-26 12:29] VITALS: BP 148/103
== END 2017-09-26 18:44 | disposition home or self-care (01) | DRG 178 ==
LOC: D.ER 12:18 → D.EDHOLD 15:53 → D.M2 15:53
PROVIDERS: Emergency Medicine; Internal Medicine Nephrology
DX: J69.0 Pneumonitis due to inhalation of food and vomit (principal); J44.1 Chronic obstructive pulmonary disease with (acute) exacerbation; J44.0 Chronic obstructive pulmonary disease with (acute) lower respiratory infection; N17.9 Acute kidney failure, unspecified; J98.11 Atelectasis; R76.11 Nonspecific reaction to tuberculin skin test without active tuberculosis; I27.20 Pulmonary hypertension, unspecified; I12.9 Hypertensive chronic kidney disease with stage 1 through stage 4 chronic kidney disease, or unspecified chronic kidney disease; N18.9 Chronic kidney disease, unspecified; E55.9 Vitamin D deficiency, unspecified; G62.9 Polyneuropathy, unspecified; J30.9 Allergic rhinitis, unspecified; F41.9 Anxiety disorder, unspecified; E78.5 Hyperlipidemia, unspecified; M19.90 Unspecified osteoarthritis, unspecified site; Z86.73 Personal history of transient ischemic attack (TIA), and cerebral infarction without residual deficits; Z72.0 Tobacco use

== ENCOUNTER 2018-01-09 11:36 | Observation (INO) | payer MEDICARE, MEDICAID ==
[~2018-01-09] VITALS: Ht 172.7 cm; Wt 65.8 kg
[~2018-01-09 11:36] MED LIST changes: +FLORAJEN3 CAPS460 MG PO; +LEVAQUIN750 MG PO; +PREDNISONE10 MG PO
[2018-01-09 12:57] LABS: BASOPHILS 0.2 % (0-2); EOSINOPHILS 0 % (0-7); HEMATOCRIT 46.5 % (36.0-48.0); HEMOGLOBIN 14.9 g/dL (12-16); IMMATURE GRANULOCYTES 0.2 % (0-5); LYMPHOCYTES 17.3 % (15-50); MCV 106.2 fL (80.0-100.0); MEAN PLATELET VOLUME 11.3 fL (7.4-10.4); MONOCYTES 6.9 % (2-11); NEUTROPHILS 75.4 % (40-80); PLATELET COUNT 107 10x3/uL (130-400); RBC 4.38 10x6/uL (4.00-5.40); RDW 14.8 % (11.5-14.5); WBC 6.1 10x3/uL (4.8-10.8)
[2018-01-09 13:24] LABS: ALBUMIN 3.4 g/dL (3.4-5.0); ALKALINE PHOSPHATASE 517 U/L (46-116); ALT (SGPT) 156 U/L (10-68); BILIRUBIN - TOTAL 1.15 mg/dL (0.2-1.3); CALC OSMOLALITY 284 mosm/kg (275-300); CARBON DIOXIDE 19.8 mmol/L (21.0-32.0); CHLORIDE - SERUM 98 mmol/L (98-107); POTASSIUM - SERUM 4.1 mmol/L (3.5-5.1); PROTEIN - SERUM 7.2 g/dL (6.4-8.2); SODIUM 144 mmol/L (136-145); UREA NITROGEN 12 mg/dL (7-18); eGFR NON AFRICAN AMERICAN 58 mL/min (90-120)
[2018-01-09 13:31] LABS: GLUCOSE 61 mg/dL (74-106)
[2018-01-09 13:35] LABS: CKMB 2.2 U/L (0.0-3.6); CREATINE KINASE 46 UL (21-215)
[2018-01-09 13:46] LABS: TROPONIN-I < 0.017 ng/mL (0.000-0.060)
[2018-01-09 15:00] VITALS: BP 132/77
[2018-01-09 16:00] VITALS: BP 106/64
[2018-01-09 17:00] VITALS: BP 104/68
[2018-01-09 18:00] VITALS: BP 115/70
[2018-01-09 19:00] VITALS: BP 114/73
[2018-01-09 21:47] VITALS: BP 135/75; BMI 22.0
[2018-01-10 05:46] VITALS: BP 118/70
[2018-01-10 05:51] LABS: ALBUMIN 2.8 g/dL (3.4-5.0); BILIRUBIN - TOTAL 0.88 mg/dL (0.2-1.3); CALCIUM 8.4 mg/dL (8.5-10.1); PROTEIN - SERUM 6.4 g/dL (6.4-8.2)
[2018-01-10 05:54] LABS: ANION GAP 11.3 mmol/L (8-16); CARBON DIOXIDE 31.2 mmol/L (21.0-32.0); CREATININE - SERUM 1.5 mg/dL (0.6-1.3); POTASSIUM - SERUM 5.5 mmol/L (3.5-5.1)
[2018-01-10 08:34] LABS: HEMATOCRIT 38.9 % (36.0-48.0); HEMOGLOBIN 12.9 g/dL (12-16); MCH 33.4 pg (26.0-34.0); MCHC 33.2 g/dL (31.0-37.0); MEAN PLATELET VOLUME 11.9 fL (7.4-10.4); RBC 3.86 10x6/uL (4.00-5.40); RDW 14.5 % (11.5-14.5)
[2018-01-10 08:45] LABS: MCV 100.8 fL (80.0-100.0); PLATELET COUNT 79 10x3/uL (130-400); WBC 2.2 10x3/uL (4.8-10.8)
[2018-01-10 09:18] LABS: BASOPHILS 1 % (0-2); HYPOCHROMASIA 2+; LYMPHOCYTES 24 % (15-50); MONOCYTES 5 % (2-11); NEUTROPHILS 60 % (40-80); PLATELET ESTIMATE DECREASED; PLATELET MORPHOLOGY GIANT PLTS PRESENT
[2018-01-10 09:20] VITALS: BP 123/72
[2018-01-10 10:40] VITALS: BMI 22.0
[2018-01-10 13:40] VITALS: Ht 172.7 cm; Wt 65.8 kg
[2018-01-10 14:38] VITALS: BP 97/58
[2018-01-10 17:07] VITALS: BP 121/83
[2018-01-10 20:42] VITALS: BP 98/65
[2018-01-11 00:28] VITALS: BP 101/64
[2018-01-11 04:10] VITALS: BP 112/68
[2018-01-11 06:32] LABS: BASOPHILS 0 % (0-2); EOSINOPHILS 0 % (0-7); HEMATOCRIT 39.4 % (36.0-48.0); HEMOGLOBIN 12.9 g/dL (12-16); IMMATURE GRANULOCYTES 0.2 % (0-5); LYMPHOCYTES 11.3 % (15-50); MCH 33.1 pg (26.0-34.0); MCHC 32.7 g/dL (31.0-37.0); MEAN PLATELET VOLUME 11.6 fL (7.4-10.4); MONOCYTES 3.9 % (2-11); NEUTROPHILS 84.6 % (40-80); PLATELET COUNT 66 10x3/uL (130-400); RDW 14.3 % (11.5-14.5)
[2018-01-11 06:39] LABS: WBC 4.6 10x3/uL (4.8-10.8)
[2018-01-11 07:00] LABS: ANION GAP 12.9 mmol/L (8-16); BILIRUBIN - TOTAL 0.66 mg/dL (0.2-1.3); CALCIUM 8.8 mg/dL (8.5-10.1); CARBON DIOXIDE 31.2 mmol/L (21.0-32.0); POTASSIUM - SERUM 5.1 mmol/L (3.5-5.1); PROTEIN - SERUM 6.3 g/dL (6.4-8.2)
[2018-01-11 08:30] VITALS: BP 119/79
[2018-01-11 12:10] LABS: HEPATITIS C ANTIBODY <0.1 (0.0-0.9)
[2018-01-11 12:35] VITALS: BP 135/79
[2018-01-11 22:18] VITALS: BP 79/47
[2018-01-12 04:10] VITALS: BP 100/67
[2018-01-12 06:16] LABS: BASOPHILS 0 % (0-2); EOSINOPHILS 0 % (0-7); HEMATOCRIT 35.5 % (36.0-48.0); IMMATURE GRANULOCYTES 0.2 % (0-5); LYMPHOCYTES 6.5 % (15-50); MCH 34.2 pg (26.0-34.0); MCHC 33.8 g/dL (31.0-37.0); MCV 101.1 fL (80.0-100.0); MEAN PLATELET VOLUME 12.1 fL (7.4-10.4); MONOCYTES 3.4 % (2-11); NEUTROPHILS 89.9 % (40-80); PLATELET COUNT 55 10x3/uL (130-400); RBC 3.51 10x6/uL (4.00-5.40); RDW 14.5 % (11.5-14.5); WBC 4.2 10x3/uL (4.8-10.8)
[2018-01-12 06:45] LABS: ALBUMIN 2.7 g/dL (3.4-5.0); ANION GAP 8.6 mmol/L (8-16); BILIRUBIN - TOTAL 0.54 mg/dL (0.2-1.3); CALCIUM 8.3 mg/dL (8.5-10.1); CARBON DIOXIDE 32.1 mmol/L (21.0-32.0); CREATININE - SERUM 0.9 mg/dL (0.6-1.3); POTASSIUM - SERUM 4.7 mmol/L (3.5-5.1); PROTEIN - SERUM 5.6 g/dL (6.4-8.2)
[2018-01-12 07:52] VITALS: BP 109/63
[2018-01-12 12:16] VITALS: BP 152/92
== END 2018-01-12 17:30 | disposition home or self-care (01) ==
LOC: D.ER 11:36 → D.MS 16:35 → OBSVTIME 16:35 → D.EDHOLD 16:35 → D.MS 19:14
PROVIDERS: Family Medicine; Internal Medicine Nephrology
DX: J44.1 Chronic obstructive pulmonary disease with (acute) exacerbation (principal); K70.10 Alcoholic hepatitis without ascites; F10.20 Alcohol dependence, uncomplicated; F17.203 Nicotine dependence unspecified, with withdrawal; G89.29 Other chronic pain; N17.9 Acute kidney failure, unspecified; I10 Essential (primary) hypertension; I25.10 Atherosclerotic heart disease of native coronary artery without angina pectoris; K21.9 Gastro-esophageal reflux disease without esophagitis; J96.10 Chronic respiratory failure, unspecified whether with hypoxia or hypercapnia; Z99.3 Dependence on wheelchair; L89.152 Pressure ulcer of sacral region, stage 2

== ENCOUNTER 2018-03-18 07:02 | Emergency (ER) | payer MEDICARE, MEDICAID ==
[~2018-03-18] VITALS: Ht 172.7 cm; Wt 63.6 kg
[2018-03-18 07:10] VITALS: Ht 172.7 cm; Wt 63.6 kg
[2018-03-18 08:34] LABS: BASOPHILS 0.2 % (0-2); EOSINOPHILS 1.7 % (0-7); HEMOGLOBIN 15.6 g/dL (12-16); IMMATURE GRANULOCYTES 0.2 % (0-5); LYMPHOCYTES 32.3 % (15-50); MCH 32.4 pg (26.0-34.0); MCHC 33.2 g/dL (31.0-37.0); MCV 97.5 fL (80.0-100.0); MEAN PLATELET VOLUME 10.4 fL (7.4-10.4); MONOCYTES 4.8 % (2-11); NEUTROPHILS 60.8 % (40-80); RBC 4.82 10x6/uL (4.00-5.40); RDW 13.9 % (11.5-14.5); WBC 6.5 10x3/uL (4.8-10.8)
[2018-03-18 08:35] LABS: PLATELET COUNT 123 10x3/uL (130-400)
[2018-03-18 08:42] LABS: ALBUMIN 3.2 g/dL (3.4-5.0); ALKALINE PHOSPHATASE 131 U/L (46-116); ALT (SGPT) 22 U/L (10-68); BILIRUBIN - TOTAL 0.48 mg/dL (0.2-1.3); CALC OSMOLALITY 270 mosm/kg (275-300); CALCIUM 8.3 mg/dL (8.5-10.1); CARBON DIOXIDE 29.3 mmol/L (21.0-32.0); CHLORIDE - SERUM 101 mmol/L (98-107); CREATININE - SERUM 0.9 mg/dL (0.6-1.3); GLUCOSE 85 mg/dL (74-106); POTASSIUM - SERUM 3.8 mmol/L (3.5-5.1); SODIUM 137 mmol/L (136-145); UREA NITROGEN 6 mg/dL (7-18); eGFR NON AFRICAN AMERICAN 66 mL/min (90-120)
[2018-03-18 08:52] LABS: CKMB 1.6 U/L (0.0-3.6); CREATINE KINASE 133 UL (21-215); TROPONIN-I < 0.017 ng/mL (0.000-0.060)
[2018-03-18 09:53] LABS: APPEARANCE CLEAR (CLEAR); BILIRUBIN NEGATIVE (NEGATIVE); COLOR YELLOW (YELLOW); GLUCOSE NEGATIVE (NEGATIVE); KETONE NEGATIVE (NEGATIVE); NITRITE NEGATIVE (NEGATIVE); PROTEIN NEGATIVE (NEGATIVE); SPECIFIC GRAVITY 1.015 (1.005-1.020); UROBILINOGEN NORMAL (NORMAL)
[2018-03-18 09:55] LABS: BACTERIA FEW /hpf (NONE SEEN); EPITHELIAL CELLS 0-5 /hpf (0-5); MUCUS <1+ /lpf (NONE SEEN); WHITE CELLS - URINE 0-5 /hpf (0-5)
[2018-03-18] MEDS ORDERED: CLEOCIN HCL300 MG PO (11:04)
[2018-03-18] MEDS ORDERED: KEFLEX500 MG PO (11:04)
[2018-03-18 12:59] VITALS: BP 120/68
== END 2018-03-18 11:39 | disposition home or self-care (01) ==
LOC: D.ER 07:02
PROVIDERS: Family Medicine
DX: R51 Headache (principal); S81.012A Laceration without foreign body, left knee, initial encounter; W18.30XA Fall on same level, unspecified, initial encounter; Y93.89 Activity, other specified; Y92.019 Unspecified place in single-family (private) house as the place of occurrence of the external cause; M25.562 Pain in left knee; M79.605 Pain in left leg; M54.2 Cervicalgia; N39.0 Urinary tract infection, site not specified; Z86.73 Personal history of transient ischemic attack (TIA), and cerebral infarction without residual deficits; K21.9 Gastro-esophageal reflux disease without esophagitis; F17.200 Nicotine dependence, unspecified, uncomplicated

== ENCOUNTER 2018-07-20 13:21 | Inpatient (IN) | payer MEDICARE, MEDICAID ==
[~2018-07-20] VITALS: Ht 172.7 cm; Wt 65.9 kg
[~2018-07-20 13:21] MED LIST changes: +CLEOCIN HCL300 MG PO; +KEFLEX500 MG PO
[2018-07-20 13:25] VITALS: BP 129/83
[2018-07-20 15:04] LABS: BASOPHILS 0.6 % (0-2); EOSINOPHILS 1.7 % (0-7); HEMATOCRIT 47.5 % (36.0-48.0); HEMOGLOBIN 15.4 g/dL (12-16); LYMPHOCYTES 46.7 % (15-50); MCH 31.3 pg (26.0-34.0); MCHC 32.4 g/dL (31.0-37.0); MCV 96.5 fL (80.0-100.0); MEAN PLATELET VOLUME 10.3 fL (7.4-10.4); MONOCYTES 15.1 % (2-11); NEUTROPHILS 35.9 % (40-80); PLATELET COUNT 124 10x3/uL (130-400); RBC 4.92 10x6/uL (4.00-5.40); RDW 16.3 % (11.5-14.5); WBC 3.5 10x3/uL (4.8-10.8)
[2018-07-20 15:26] LABS: ALBUMIN 3.2 g/dL (3.4-5.0); ALKALINE PHOSPHATASE 124 U/L (46-116); ALT (SGPT) 16 U/L (10-68); BILIRUBIN - TOTAL 0.61 mg/dL (0.2-1.3); CALC OSMOLALITY 276 mosm/kg (275-300); CARBON DIOXIDE 35.6 mmol/L (21.0-32.0); CHLORIDE - SERUM 98 mmol/L (98-107); CREATININE - SERUM 0.9 mg/dL (0.6-1.3); GLUCOSE 94 mg/dL (74-106); POTASSIUM - SERUM 3.7 mmol/L (3.5-5.1); PROTEIN - SERUM 7.5 g/dL (6.4-8.2); SODIUM 139 mmol/L (136-145); UREA NITROGEN 10 mg/dL (7-18); eGFR NON AFRICAN AMERICAN 66 mL/min (90-120)
[2018-07-20 15:30] LABS: TROPONIN-I < 0.017 ng/mL (0.000-0.060)
[2018-07-20 16:14] LABS: APPEARANCE CLEAR (CLEAR); BILIRUBIN 2+ (NEGATIVE); COLOR DK YELLOW (YELLOW); GLUCOSE NEGATIVE (NEGATIVE); KETONE NEGATIVE (NEGATIVE); NITRITE NEGATIVE (NEGATIVE); PROTEIN TRACE mg/dL (NEGATIVE)
[2018-07-20 16:15] LABS: BACTERIA FEW /hpf (NONE SEEN); RED CELLS - URINE 0-5 /hpf (0-5); WHITE CELLS - URINE 0-5 /hpf (0-5)
[2018-07-20 16:40] VITALS: BP 111/70
[2018-07-20 17:00] VITALS: BP 122/80
--- NOTE | 2018-07-20 17:28 | NUR ---
RECEIVED REPORT FROM YON IN ER. PATIENT TO UNIT SOON.
--- NOTE | 2018-07-20 17:47 | NUR ---
PATIENT ARRIVED TO ROOM 1207 VIA GERNEY FROM THE ER. PATIENT ALERT/ORIENTED. PATIENT STATES SHE IS BED BOUND BUT ABLE TO TRANSFER TO BSC WITH ASSIST. RESP EVEN AND UNLABORED. LEVAQUIN INFUSING TO LEFT FOREARM AT THIS TIME. PATIENT RESTING IN BED AND STATING SHE NEED HER NORCO, NEURONTIN, AND VOLTAREN GEL. PATIENT TAKING SOCKS OFF IN BED AT THIS TIME. NO CAREGIVER AT BEDSIDE. CALL LIGHT WITHIN REACH. NO DISTRESS.
[2018-07-20] MEDS ORDERED: CYCLOBENZAPRINE10 MG PO (17:59)
--- NOTE | 2018-07-20 18:43 | NUR ---
SPOKE WITH . PATIENT HAS HAD NOTHING FOR PAIN ALL DAY. ORDER RECEIVED TO RESTART PAIN MEDICATION. ORDERS INPUTTED INTO COMPUTER.
[2018-07-20 19:00] VITALS: BP 98/67
--- NOTE | 2018-07-20 19:54 | NUR ---
PATIENT RESTING IN BED AND REQUESTED MEDS. I EXPLAINED TO THE PATIENT THAT THE WARP KNITTING MACHINE OPERATOR WOULD BRING HER MEDS UP AND THAT I WOULD BRING THEM TO HER SOON I HAVE THEM. THE PATIENT VERBALIZED UNDERSTANDING AND REQUESTED THAT I WAKE HER UP IF SHE IS SLEEPING. PATIENT DENIES OTHER NEEDS AT THIS TIME. BED IN LOWEST POSITION AND CALL LIGHT WITHIN REACH. ENCOURAGED THE PATIENT TO CALL IF SHE HAS NEEDS. WILL CONTINUE TO MONITOR.
[2018-07-21] VITALS (7 sets, daily range): BP systolic 96–131; BP diastolic 53–83; BMI 21.3; BMI 21.2
--- NOTE | 2018-07-21 01:28 | NUR ---
ADDED PATIENT TO TELE WAIT LIST. NO MONITORS AVAILABLE AT THIS TIME.
--- NOTE | 2018-07-21 08:30 | NUR ---
PT AOX4 RESP EVEN AND NONLABORED PT DENIES NEEDS AT THIS TIME IV TO LEFT FOREARM PATENT AND INTACT AT THIS TIME SRX2 BED AT LOWEST SETTING CALL LIGHT WITHIN REACH WILL CONTINUE TO MONITOR
--- NOTE | 2018-07-21 23:15 | NUR ---
PATIENT RESTING IN BED WITH NO S/S OF DISTRESS. PATIENT DENIES NEEDS AT THIS TIME. BED IN LOWEST POSITION AND CALL LIGHT WITHIN REACH. ENCOURAGED THE PATIENT TO CALL IF SHE HAS NEEDS.
[2018-07-22] VITALS: BP 114/58
[2018-07-22 04:00] VITALS: BP 118/79
[2018-07-22 07:23] LABS: BASOPHILS 0 % (0-2); EOSINOPHILS 0 % (0-7); HEMATOCRIT 39.5 % (36.0-48.0); HEMOGLOBIN 13.2 g/dL (12-16); IMMATURE GRANULOCYTES 0.2 % (0-5); LYMPHOCYTES 4.6 % (15-50); MCH 30.8 pg (26.0-34.0); MCHC 33.4 g/dL (31.0-37.0); MCV 92.3 fL (80.0-100.0); MEAN PLATELET VOLUME 10.8 fL (7.4-10.4); MONOCYTES 2.3 % (2-11); NEUTROPHILS 92.9 % (40-80); PLATELET COUNT 128 10x3/uL (130-400); RBC 4.28 10x6/uL (4.00-5.40); RDW 15.6 % (11.5-14.5); WBC 12.1 10x3/uL (4.8-10.8)
[2018-07-22 07:27] LABS: ANION GAP 13.2 mmol/L (8-16); CALCIUM 8.4 mg/dL (8.5-10.1); CARBON DIOXIDE 28.3 mmol/L (21.0-32.0); CREATININE - SERUM 1.1 mg/dL (0.6-1.3); POTASSIUM - SERUM 4.5 mmol/L (3.5-5.1)
[2018-07-22 07:55] VITALS: BP 101/59
--- NOTE | 2018-07-22 08:11 | NUR ---
PT SAITTING UP IN BED STATED SHE SLEPT VERY WELL LAST NIGHT, NO S/S OF DISTRESS, BED IN LOW POSITION, CL IN REACH EXPLAINED TO PT THAT DR WOULD LIKE PT TO BE OUT OF BED WITH MEALS AND SIT UP MORE, CONTINUE WITH PLAN OF CARE
[2018-07-22 11:54] VITALS: BP 101/65
--- NOTE | 2018-07-22 14:05 | NUR ---
RN ROUNDING DONE WITH PATIENT RESTING ON 2L PER NC. SHE HAS COME BACK FROM RADIOLOGY [facility] WHEN I WAS TAKING VITALS. LEFT FA PIV SEEN WITH SALINE LOCK. RESP ARE EVEN AND NON LABORED. APPEARS TO NOT BE HAVING ANY SHORTNESS OF BREATH.
[2018-07-22 15:40] VITALS: BP 108/66
[2018-07-22 19:44] VITALS: BP 115/63
--- NOTE | 2018-07-22 20:11 | NUR ---
ASSISTED PATIENT TO THE RESTROOM WITH BRANCH SERVICE LEADER. PATIENT REQUESTED NIGHT MEDS WHEN DUE. BED IN LOWEST POSITION AND CALL LIGHT WITHIN REACH. ENCOURAGED THE PATIENT TO CALL IF SHE HAS NEEDS.
--- NOTE | 2018-07-22 20:50 | NUR ---
PATIENT RESTING IN BED WITH EYES CLOSED AND NO S/S OF DISTRESS. BED IN LOWEST POSITION AND CALL LIGHT WITHIN REACH. WILL CONTINUE TO MONITOR.
--- NOTE | 2018-07-22 21:50 | NUR ---
PATIENT RESTING IN BED WITH EYES CLOSED AND NO S/S OF DISTRESS. BED IN LOWEST POSITION AND CALL LIGHT WITHIN REACH. WILL CONTINUE TO MONITOR.
--- NOTE | 2018-07-22 23:50 | NUR ---
PATIENT RESTING IN BED WITH EYES CLOSED AND NO S/S OF DISTRESS. BED IN LOWEST POSITION AND CALL LIGHT WITHIN REACH. WILL CONTINUE TO MONITOR.
--- NOTE | 2018-07-23 01:09 | NUR ---
PATIENT RESTING IN BED WITH EYES CLOSED AND NO S/S OF DISTRESS. BED IN LOWEST POSITION AND CALL LIGHT WITHIN REACH. WILL CONTINUE TO MONITOR.
--- NOTE | 2018-07-23 02:30 | NUR ---
PATIENT RESTING IN BED WITH EYES CLOSED AND NO S/S OF DISTRESS. BED IN LOWEST POSITION AND CALL LIGHT WITHIN REACH. WILL CONTINUE TO MONITOR.
--- NOTE | 2018-07-23 02:45 | NUR ---
SPOKE WITH HEAD WAITRESS IN REGARDS TO NEEDING A POWER CORD FOR THE PATIENT'S WOUND VAC
[2018-07-23 04:00] VITALS: BP 111/68
[2018-07-23 07:05] LABS: BASOPHILS 0 % (0-2); EOSINOPHILS 0 % (0-7); HEMATOCRIT 37.7 % (36.0-48.0); HEMOGLOBIN 12.7 g/dL (12-16); IMMATURE GRANULOCYTES 0.3 % (0-5); MCH 30.6 pg (26.0-34.0); MCHC 33.7 g/dL (31.0-37.0); MCV 90.8 fL (80.0-100.0); MONOCYTES 3.7 % (2-11); PLATELET COUNT 121 10x3/uL (130-400); RBC 4.15 10x6/uL (4.00-5.40); RDW 15.7 % (11.5-14.5); WBC 9.7 10x3/uL (4.8-10.8)
[2018-07-23 07:11] LABS: ANION GAP 12.8 mmol/L (8-16); CALCIUM 8.3 mg/dL (8.5-10.1); CARBON DIOXIDE 27.1 mmol/L (21.0-32.0); CREATININE - SERUM 0.9 mg/dL (0.6-1.3); POTASSIUM - SERUM 3.9 mmol/L (3.5-5.1)
[2018-07-23 07:54] VITALS: BP 108/65
--- NOTE | 2018-07-23 09:07 | NUR ---
AM MEDS GIVEN AT THIS TIME. ALSO GAVE NORCO FOR PAIN LEVEL OF 10/10. PT DENIES ANY OTHER NEEDS AT THIS TIME. CALL LIGHT IN REACH, NAD NOTED, WILL CONTINUE TO MONITOR.
[2018-07-23 11:46] VITALS: BP 107/64
--- NOTE | 2018-07-23 12:07 | MORECARE ---
CASE MANAGEMENT DISCHARGE SUMMARY PATIENT: CHYNA LINO UNIT: [id number] ADM DATE: 07/20/18 AGE: 72 : 47 SEX: F ROOM/BED: D.1207 AUTHOR: MIRA MCGRAW PHYSICIAN: REFERRING PHYSICIAN: BHAVIK FLYNN MD DATE OF SERVICE: 07/23/18 Discharge Plan Patient Name: CHYNA LINO Facility: [facility]:[place] : 1945 Planned Disposition: Anticipated Discharge Date: Discharge Date: Expected LOS: Initial Reviewer: [email or web address] Initial Review Date: 07/23/2018 Generated: 07/23/18 1:07 pm Comments DCP- Discharge Planning Updated by [email or web address]: Cristin Rosado on 07/23/18 11:[address] Patient Name: CHYNA LINO Admission Status: ER Accout number: [id number] Admission Date: 07-20-2018 : 1945 Admission Diagnosis:SHORTNESS OF BREATH Attending: BHAVIK FLYNN Current LOS: 3 Anticipated DC Date: Planned Disposition: Primary Insurance: [facility] [employer]IC[employer]UTIONS Discharge Planning Comments: CM MET WITH PATIENT ABOUT DC PLANNING/NEEDS. STATES NO NEEDS, SHE HAS [facility] SHE USES AT HOME. LIVES IN A HANDICAP APPARTMENT BY HERSELF. HAS AN AID THAT COMES EVERY DAY. [facility] SAF[facility] AND HER FRIEND ZAIN WILL MICA LAMINATING MACHINE FEEDER AT TIME OF DC. ZAIN'S NUMBER IS [phone]. CM WILL FOLLOW AND ASSIST NEEDED WITH DC PLANNING/NEEDS. IM SIGNED. Office Support Associate: Cristin Rosado DCPIA - Discharge Planning Initial Assessment Updated by [email or web address]: Cristin Rosado on 07/23/18 12:03 pm * Is the patient Alert and Oriented? Yes * PCP [facility] * [facility]acy [facility] * Preadmission Environment Home Alone * ADLs Independent * Equipment Nebulizer Oxygen Wheelchair * List name and contact numbers for known caregivers / representatives who currently or will assist patient after discharge: ZAIN ADAMS, * Community resources currently utilized Home Health * Please name any agencies selected above. [facility] * Has this patient been hospitalized within the prior 30 days at any hospital? No Coverage Notice Reviewer: [email or web address] - Cristinxavier Rosado Notice Issued Date-Time: 07/23/2018 11:58 Notice Type: IM Discharge Notice Notice Delivered To: Patient Relationship to Patient: Self Shop Helper Name: Delivery Method: HAND - Hand Delivered [place] Days: Prior Verbal Notification: Recipient Understood Notice: Yes Recipient Signature: Yes Med Rec Note Co-signed by Attending: Coverage Notice Comment: Patient Name: CHYNA LINO Page [phone] at 1207 All edits/amendments must be made on the electronic document DICTATION DATE: 07/23/[address] SERVICE LOCKSMITH: VIMAL 07/23/18 1206 RPT#: [id number] DC DATE: STATUS: ADM IN [facility] [address] [place] [address] END OF REPORT
[2018-07-23 15:46] VITALS: BP 118/73
--- NOTE | 2018-07-23 19:56 | NUR ---
PT SITTING IN BED ON PHONE. NAME AND DATE PLACED ON BOARD. ASSISTED PT TO RESTROOM WITH MINIMAL ASSIST. BALANCE ISSUES. CHANGED BRIEF. PT BACK TO BED. ICE WATER GIVEN. PT DENIES ANY OTHER NEEDS. WILL CPOC
[2018-07-23 21:00] VITALS: BP 114/77
--- NOTE | 2018-07-23 22:01 | NUR ---
PT RESTING IN BED. ASKING FOR NORCO. PT WILL RECEIVE. PT HAS NO S/S OF DISTRESS. 2L O2 NC. PT BEDLOW AND CALL LIGHT IN REACH. WILL CPOC
[2018-07-24 06:28] LABS: BASOPHILS 0 % (0-2); EOSINOPHILS 0 % (0-7); HEMATOCRIT 37.8 % (36.0-48.0); HEMOGLOBIN 12.7 g/dL (12-16); IMMATURE GRANULOCYTES 0.3 % (0-5); LYMPHOCYTES 4.2 % (15-50); MCH 30.5 pg (26.0-34.0); MCHC 33.6 g/dL (31.0-37.0); MCV 90.6 fL (80.0-100.0); MONOCYTES 10.5 % (2-11); PLATELET COUNT 120 10x3/uL (130-400); RBC 4.17 10x6/uL (4.00-5.40); RDW 15.8 % (11.5-14.5); WBC 10.1 10x3/uL (4.8-10.8)
--- NOTE | 2018-07-24 06:51 | NUR ---
PT COMPLAINS ABOUT BEING UP SINCE 329, PT HOPES TO TAKE A NAP TODAY. PT IS SITTING UP IN BED WATCHING TV. WENT TO RESTROOM. CHANGED BRIEF. PT HAS NO S/S OF DISTRESS. BEDLOW AND CALL LIGHT IN REACH. WILL CPOC
[2018-07-24 06:52] VITALS: BP 130/76
--- NOTE | 2018-07-24 06:55 | NUR ---
PT ASKING FOR NORCO FOR PAIN. WILL CHECK ORDERS AND FOLLOW. PT HAS NO S/S OF DISTRESS. WILL CPOC
[2018-07-24 07:29] LABS: CALCIUM 8.6 mg/dL (8.5-10.1); CARBON DIOXIDE 27.3 mmol/L (21.0-32.0); POTASSIUM - SERUM 4.3 mmol/L (3.5-5.1)
[2018-07-24 09:46] VITALS: BP 110/68
[2018-07-24 12:22] VITALS: BP 107/66
[2018-07-24 17:27] VITALS: BP 94/63
--- NOTE | 2018-07-24 18:36 | NUR ---
PT STATES SHE HAD A GOOD DINNER AND DENIES NEEDS AT THIS TIME. WCTM.
--- NOTE | 2018-07-24 19:26 | NUR ---
BEDSIDE REPORT RECEIVED, PT IS ASLEEP. RESP EVEN AND UNLABORED. 2L O2 NC. PT HAS NO S/S OF DISTRESS. BEDLOW AND CALL LIGHT IN REACH. NS INFUSING ORDERED TO LEFT AC. NAME AND DATE PLACED ON BOARD. WILL CPOC
--- NOTE | 2018-07-24 20:08 | NUR ---
PT CALLED FOR ASSIST TO RESTROOM. PT VOIDED A MODERATE AMOUNT AND HAD A SMALL LOOSE BM. PT HAS A SMALL SORE ON RIGHT INNER THIGH CLOSE TO BUTTOCK. PT GIVEN CREAM. PT BACK TO BED. DENIES ANY NEEDS. WILL CPOC
[2018-07-24 20:53] VITALS: BP 101/65
--- NOTE | 2018-07-25 01:20 | NUR ---
ULTRAM GIVEN FOR GENERALIZED PAIN. PT DENIES ANY OTHER NEEDS,. NO S/S OF DISTRESS. WILL CPOC
--- NOTE | 2018-07-25 02:42 | NUR ---
PT COMPLAINS OF PAIN AND ANXIETY, NORCO AND VALUIM GIVEN. PT SITTING UP IN BED, O2 2L. PT DENIES ANY OTHER NEEDS. NO S/S OF DISTRESS. WILL CPOC
[2018-07-25 06:13] VITALS: BP 97/61
--- NOTE | 2018-07-25 06:15 | NUR ---
PT ASLEEP, AROUSES TO VERBAL STIMULI. PT SLEEPY, VITALS DONE AND RESP IN ROOM GIVING A BREATHING TREATMENT. PT DENIES ANY NEEDS. NO S/S OF DISTRESS. WILL CPCO
[2018-07-25 06:25] LABS: BASOPHILS 0 % (0-2); EOSINOPHILS 0.7 % (0-7); HEMATOCRIT 35.5 % (36.0-48.0); HEMOGLOBIN 11.6 g/dL (12-16); IMMATURE GRANULOCYTES 0.2 % (0-5); LYMPHOCYTES 21.5 % (15-50); MCH 30.1 pg (26.0-34.0); MCHC 32.7 g/dL (31.0-37.0); MCV 92.2 fL (80.0-100.0); MEAN PLATELET VOLUME 11.2 fL (7.4-10.4); MONOCYTES 15.7 % (2-11); NEUTROPHILS 61.9 % (40-80); PLATELET COUNT 116 10x3/uL (130-400); RBC 3.85 10x6/uL (4.00-5.40); RDW 16.2 % (11.5-14.5)
[2018-07-25 06:33] LABS: WBC 5.4 10x3/uL (4.8-10.8)
[2018-07-25 06:38] LABS: ANION GAP 12.1 mmol/L (8-16); CALCIUM 8.2 mg/dL (8.5-10.1); CARBON DIOXIDE 28.8 mmol/L (21.0-32.0); POTASSIUM - SERUM 3.9 mmol/L (3.5-5.1)
[2018-07-25 08:00] VITALS: BP 99/61
[2018-07-25 11:53] VITALS: BP 93/56
[2018-07-25 13:07] VITALS: Ht 172.7 cm; Wt 65.9 kg
[2018-07-25 16:00] VITALS: BP 96/59
--- NOTE | 2018-07-25 18:23 | NUR ---
SITTING UP IN BED EATING SUPPER. DENIES NEEDS. NO CHANGES AT THIS TIME.
[2018-07-25 20:00] VITALS: BP 100/61
[2018-07-26] VITALS: BP 96/62
[2018-07-26 04:00] VITALS: BP 156/45
[2018-07-26 06:36] LABS: BASOPHILS 0 % (0-2); EOSINOPHILS 4.7 % (0-7); HEMATOCRIT 36.5 % (36.0-48.0); HEMOGLOBIN 11.8 g/dL (12-16); IMMATURE GRANULOCYTES 0.2 % (0-5); LYMPHOCYTES 23.1 % (15-50); MCH 29.9 pg (26.0-34.0); MCHC 32.3 g/dL (31.0-37.0); MCV 92.6 fL (80.0-100.0); MEAN PLATELET VOLUME 10.7 fL (7.4-10.4); MONOCYTES 15.9 % (2-11); NEUTROPHILS 56.1 % (40-80); RBC 3.94 10x6/uL (4.00-5.40); RDW 16.3 % (11.5-14.5); WBC 4.9 10x3/uL (4.8-10.8)
[2018-07-26 06:44] LABS: PLATELET COUNT 144 10x3/uL (130-400)
[2018-07-26 06:55] LABS: CALC OSMOLALITY 285 mosm/kg (275-300); CARBON DIOXIDE 26.9 mmol/L (21.0-32.0); CHLORIDE - SERUM 109 mmol/L (98-107); CREATININE - SERUM 0.8 mg/dL (0.6-1.3); GLUCOSE 91 mg/dL (74-106); SODIUM 143 mmol/L (136-145); UREA NITROGEN 15 mg/dL (7-18); eGFR NON AFRICAN AMERICAN 75 mL/min (90-120)
--- NOTE | 2018-07-26 13:31 | NUR ---
RESTING QUIETLY IN BED. DENIES ANY NEEDS AT THIS TIME.
--- NOTE | 2018-07-26 13:45 | NUR ---
PATIENT REFUSES TO DRINK THICKENED LIQUIDS.
[2018-07-26] MEDS ORDERED: LEVAQUIN750 MG PO (15:19)
[2018-07-26 19:39] VITALS: BP 115/69
--- NOTE | 2018-07-26 19:39 | NUR ---
PATIENT RESTING IN BED WITH EYES CLOSED AND NO S/S OF DISTRESS. BED IN LOWEST POSITION AND CALL LIGHT WITHIN REACH. WILL CONTINUE TO MONITOR.
[2018-07-26 23:31] VITALS: BP 108/76
[2018-07-27 04:24] VITALS: BP 158/90
--- NOTE | 2018-07-27 07:30 | NUR ---
ASSESSMENT COMPLETE. SL TO L FA. O2 2L NC IN USE. DENIES ANY NEEDS AT THIS TIME.
[2018-07-27 08:57] VITALS: BP 139/74
--- NOTE | 2018-07-27 10:15 | NUR ---
IV REMOVED. CATHETER TIP INTACT. DISCHARGE TEACHING GIVEN TO PATIENT. VOICED UNDERSTANDING.
--- NOTE | 2018-07-27 10:25 | NUR ---
DC'D HOME. ESCORTED TO [facility] VIA WC BY TABLE LEVER OPERATOR WITH BELONGINGS. STATES SHE HAS SPOKE TO HER CAREGIVERS TO LET THEM KNOW SHE'S RETURNING HOME.
--- NOTE | 2018-07-29 08:37 | MORECARE ---
CASE MANAGEMENT DISCHARGE SUMMARY PATIENT: CHYNA LINO UNIT: [id number] ADM DATE: 07/20/18 AGE: 72 : 47 SEX: F ROOM/BED: D.1207 AUTHOR: MIRA MCGRAW PHYSICIAN: REFERRING PHYSICIAN: BHAVIK FLYNN MD DATE OF SERVICE: 07/29/18 Discharge Plan Patient Name: CHYNA LINO Facility: [facility]:[place] : 1945 Planned Disposition: Anticipated Discharge Date: Discharge Date: 07/27/2018 Expected LOS: Initial Reviewer: [id number] Initial Review Date: 07/23/2018 Generated: 07/29/18 9:37 am Comments DCP- Discharge Planning Updated by [id number]: Cristin Rosado on 07/23/18 11:[address] Patient Name: CHYNA LINO Admission Status: ER Accout number: [id number] Admission Date: 07-20-2018 : 1945 Admission Diagnosis:SHORTNESS OF BREATH Attending: BHAVIK FLYNN Current LOS: 3 Anticipated DC Date: Planned Disposition: Primary Insurance: [facility] MEDICARE SOLUTIONS Discharge Planning Comments: CM MET WITH PATIENT ABOUT DC PLANNING/NEEDS. STATES NO NEEDS, SHE HAS [facility] SHE USES AT HOME. LIVES IN A HANDICAP APPARTMENT BY HERSELF. HAS AN AID THAT COMES EVERY DAY. [facility] IS SAFE AND HER FRIEND ZAIN WILL SURGICAL INSTRUMENT MAKER AT TIME OF DC. ZAIN'S NUMBER IS [phone]. CM WILL FOLLOW AND ASSIST NEEDED WITH DC PLANNING/NEEDS. IM SIGNED. Weight Loss Physician: Cristin Rosado DCPIA - Discharge Planning Initial Assessment Updated by [email or web address]: Cristin Rosado on 07/23/18 12:03 pm * Is the patient Alert and Oriented? Yes * PCP AFSHAN * Pharmacy [facility] [address] * Preadmission Environment Home Alone * ADLs Independent * Equipment Nebulizer Oxygen Wheelchair * List name and contact numbers for known caregivers / representatives who currently or will assist patient after discharge: ZAIN ADAMS, * Community resources currently utilized Home Health * Please name any agencies selected above. [facility] * Has this patient been hospitalized within the prior 30 days at any hospital? No Coverage Notice Reviewer: [id number] Nicolasa Rosado Notice Issued Date-Time: 07/23/2018 11:58 Notice Type: IM Discharge Notice Notice Delivered To: Patient Relationship to Patient: Self Leather Belt Maker Name: Delivery Method: HAND - Hand Delivered Bonita Days: Prior Verbal Notification: Recipient Understood Notice: Yes Recipient Signature: Yes Med Rec Note Co-signed by Attending: Coverage Notice Comment: Last DP export: 07/23/18 11:07 a Patient Name: CHYNA LINO Page [phone] at 0837 All edits/amendments must be made on the electronic document DICTATION DATE: 07/29/18836 PRESS OPERATOR: VIMAL 07/29/1837 RPT#: [id number] DC DATE:07/27/18 STATUS: DIS IN [facility] [address] [place] [address] END OF REPORT
== END 2018-07-27 10:25 | disposition home or self-care (01) | DRG 189 ==
LOC: D.ER 13:21 → D.EDHOLD 16:26 → D.M3 16:26
PROVIDERS: Emergency Medicine; Internal Medicine Nephrology; ADMIT Family Medicine
DX: J96.21 Acute and chronic respiratory failure with hypoxia (principal); J18.1 Lobar pneumonia, unspecified organism; J44.0 Chronic obstructive pulmonary disease with (acute) lower respiratory infection; F17.213 Nicotine dependence, cigarettes, with withdrawal; J44.1 Chronic obstructive pulmonary disease with (acute) exacerbation; J20.9 Acute bronchitis, unspecified; K21.9 Gastro-esophageal reflux disease without esophagitis; I10 Essential (primary) hypertension; K58.9 Irritable bowel syndrome, unspecified; K75.9 Inflammatory liver disease, unspecified; I25.10 Atherosclerotic heart disease of native coronary artery without angina pectoris; F41.9 Anxiety disorder, unspecified; Z86.73 Personal history of transient ischemic attack (TIA), and cerebral infarction without residual deficits; R13.13 Dysphagia, pharyngeal phase; Z91.19 Patient's noncompliance with other medical treatment and regimen

== ENCOUNTER 2019-07-27 09:50 | Inpatient (IN) | payer MEDICARE, MEDICAID ==
[~2019-07-27] VITALS: Ht 172.7 cm; Wt 62.7 kg
[~2019-07-27 09:50] MED LIST changes: +CYCLOBENZAPRINE10 MG PO
[2019-07-27 10:26] LABS: CALCIUM 8.8 mg/dL (8.5-10.1); CARBON DIOXIDE 30.8 mmol/L (21.0-32.0); CREATININE - SERUM 0.9 mg/dL (0.6-1.3); POTASSIUM - SERUM 4.8 mmol/L (3.5-5.1)
[2019-07-27 10:28] LABS: MCH 33.2 pg (26.0-34.0); MCHC 33.3 g/dL (31.0-37.0); MCV 99.6 fL (80.0-100.0); MEAN PLATELET VOLUME 10.9 fL (7.4-10.4); RBC 4.52 10x6/uL (4.00-5.40); RDW 13.8 % (11.5-14.5); WBC 7.4 10x3/uL (4.8-10.8)
[2019-07-27 11:01] VITALS: BP 101/70; BMI 21.0
[2019-07-27] MEDS ORDERED: AMOXICILLIN500 M1 PO (11:18)
[2019-07-27] MEDS ORDERED: OXYCODONE HCL10 MG PO (11:18)
[2019-07-27] MEDS ORDERED: ATARAX 25 MG TA25 MG PO (11:19)
--- NOTE | 2019-07-27 12:21 | NUR ---
PT HAS EXTREMELY POOR SKIN INTEGRITITY. PT ARM BANDS ON RIGHT ARM, ARM BAND TORE SKIN ON RIGHT WRIST. TEGADERM APPLIED. BANDAID NOTED TO RIGHT LOWER LEG. NURSE REMOVED BANDAID TO PREP SKIN. BANDAID APPEARED TO BE OLD. CUT UNDER BANDAID IMMEDIATELY STARTED BLEEDING. PRESSURE HELD TO SLOP BLEEDING AND TEGADERM APPLIED. OLD SCABS NOTED TO RIGHT KNEE.
--- NOTE | 2019-07-27 12:54 | NUR ---
PT NOTED HAVING POOR CIRCULATION IN LOWER EXTREMITY
--- NOTE | 2019-07-27 13:11 | NUR ---
PT SKIN SCALEY, FLAKY, AND NOTEABLY THIN. VERY LITTLE MOVEMENT IN PT RIGHT KNEE AND HIP. PT STATES SHE CANNOT MOVE IT. PT HAD TO BE MOVED FROM STRETCHER TO OR BED WITH ROLLER. POOR CIRCULATION NOTED TO LOWER EXTREMITY. PT FEET COLD. AFTER TOURNIQUE REMOVED, CAP REFILL GREATER THAN 3 SECONDS IN GREAT TOE.
--- NOTE | 2019-07-27 14:05 | NUR ---
PT PEDAL PULSES PALPATED TO RLE, PEDAL PULSES ARE INTACT AND 2+.
--- NOTE | 2019-07-27 15:30 | NUR ---
DR. SINGLETON OFFICE CALLED AT THIS TIME, SAID TO HOLD OFF ON PT DISCHARGE, MAY DECIDE TO KEEP PT OVERNIGHT FOR OBSERVATION, WILL CONTINUE TO MONITOR.
--- NOTE | 2019-07-27 15:51 | NUR ---
PT ROUNDED ON AT THIS TIME, PT RESTING COMFORTABLY, NO COMPLAINTS AT THIS TIME.
--- NOTE | 2019-07-27 16:40 | NUR ---
REPORT CALLED TO 2217 RN AT THIS TIME.
--- NOTE | 2019-07-27 16:50 | NUR ---
PT TRANSFERED TO 2217 AT THIS TIME, NAD NOTED BY PATIENT AT THIS TIME.
[2019-07-27 16:51] VITALS: BP 147/101
--- NOTE | 2019-07-27 16:55 | NUR ---
REC'D TO ROOM 2217 AWAKE AND ALERT. RESP EVEN AND UNLABORED WTH NO DISTRESS NOTED. CAN EXPRESS NEEDS AND WANTS. HAVE KNEE IMMOBLIZER IN USE TO RIGHT KNEE WITH MATILDA WRAP IN USE. ASSESSMENT COMPLETED. C/L IN REACH AT BEDSIDE.
[2019-07-27 18:20] VITALS: BP 147/101; Ht 172.7 cm; Wt 62.7 kg
--- NOTE | 2019-07-27 18:37 | NUR ---
. C/L IN REAC[facility]/O RIGHT KNEE PAIN RATING 10/10 MEDICATED WITH OXY PER ORDERS
[2019-07-27 19:39] LABS: INR 0.95 (0.85-1.17); PROTIME 12.6 SECONDS (11.6-15.0)
--- NOTE | 2019-07-27 20:00 | NUR ---
PT SITTING UP IN BED WITHOUT DISTRESS, AOX4. RIGHT KNEE IN MATILDA WRAP CDI WITH IMMOBILIZER IN PLACE. PLEXI BOOT TO RIGHT FOOT, SCD TO LEFT. IV RIGHT FA INFUSING 1/2NS @ 50. O2 2L/NC. BED ALARM ON. ASSISTED ON AND OFF BEDPAN TO VOID. PROVIDED JELLO AND WATER. TOLERATED WELL. DENIES OTHER NEEDS. WILL CTM
[2019-07-27 21:03] VITALS: BP 139/79
--- NOTE | 2019-07-27 22:45 | NUR ---
PT STATES PAIN 50/10, GAVE OXY ORDERED. DENIES OTHER NEEDS. CL IN REACH, WILL CTM
[2019-07-28 00:56] VITALS: BP 128/77
--- NOTE | 2019-07-28 03:25 | NUR ---
PT STATES PAIN 10/10 AFTER ASSISTING ON AND OFF BEDPAN TO VOID. GAVE OXY ORDERED. DENIES OTHER NEEDS. CL IN REACH, WILL CTM
[2019-07-28 05:46] VITALS: BP 135/86
[2019-07-28 05:57] LABS: BASOPHILS 0 % (0-2); EOSINOPHILS 0 % (0-7); HEMATOCRIT 40.3 % (36.0-48.0); HEMOGLOBIN 13.1 g/dL (12-16); IMMATURE GRANULOCYTES 0.3 % (0-5); LYMPHOCYTES 6.7 % (15-50); MCH 32.2 pg (26.0-34.0); MCHC 32.5 g/dL (31.0-37.0); MEAN PLATELET VOLUME 10.8 fL (7.4-10.4); MONOCYTES 4.1 % (2-11); NEUTROPHILS 88.9 % (40-80); PLATELET COUNT 169 10x3/uL (130-400); RBC 4.07 10x6/uL (4.00-5.40); RDW 13.5 % (11.5-14.5)
[2019-07-28 06:06] LABS: WBC 15.9 10x3/uL (4.8-10.8)
[2019-07-28 06:15] LABS: CALC OSMOLALITY 270 mosm/kg (275-300); CALCIUM 7.9 mg/dL (8.5-10.1); CARBON DIOXIDE 30.8 mmol/L (21.0-32.0); CHLORIDE - SERUM 100 mmol/L (98-107); CREATININE - SERUM 0.8 mg/dL (0.6-1.3); GLUCOSE 121 mg/dL (74-106); MAGNESIUM - SERUM 1.6 mg/dL (1.8-2.4); POTASSIUM - SERUM 5.2 mmol/L (3.5-5.1); SODIUM 135 mmol/L (136-145); UREA NITROGEN 13 mg/dL (7-18); eGFR NON AFRICAN AMERICAN 75 mL/min (90-120)
[2019-07-28 08:30] VITALS: BP 135/85
--- NOTE | 2019-07-28 08:35 | NUR ---
PATIENT PEDAL PULSE ON RIGHT LOWER EXTREMETY WEAK. EXTREMETY RED AND WARM TO THE TOUCH. PAIN LEVEL IS A 10 OUT OF 10 ON PAIN SCALE. FALL PRECAUTIONS IN PLACE. BED PLATA PROVIDED. CL IN REACH. WCTM
--- NOTE | 2019-07-28 11:02 | NUR ---
ROSA M IN ROOM. STILL CO PAIN. STATES HER MIND ISN'T WORKING RIGHT BECAUSE OF THE PAIN. SHE'S "MAKING MORE MISTAKES THAN USUAL" CL IN REACH. WCTM
--- NOTE | 2019-07-28 12:44 | NUR ---
Rehab Note- Acute Inpatient Rehab prescreen order reeived. THe patient has [facility] insurance and will require a PreAuth prior to an acute inpatient rehab stay. Will need an OT Eval, has a pending PT Eval at this time. Will follow at this time. Thank you for this referral! Libertad Mancia RN Clinical Liaison, [facility] Rehab
[2019-07-28 15:06] VITALS: BP 120/69
[2019-07-28 16:45] VITALS: BP 144/82
--- NOTE | 2019-07-28 17:20 | MORECARE ---
CASE MANAGEMENT DISCHARGE SUMMARY PATIENT: CHYNA LINO CHANDNI UNIT: [id number] ADM DATE: 07/27/19 AGE: 73 : [birth year] SEX: F ROOM/BED: D.2217 AUTHOR: MIRA MCGRAW PHYSICIAN: REFERRING PHYSICIAN: KERI SINGLETON MD DATE OF SERVICE: 07/28/19 Discharge Plan Patient Name: CHYNA LINO Facility: [facility]:[place] : 1945 Planned Disposition: Home or Self Care Anticipated Discharge Date: Discharge Date: Expected LOS: 0 Initial Reviewer: [email or web address] Initial Review Date: 07/28/2019 Generated: 07/28/19 6:20 pm DCPIA - Discharge Planning Initial Assessment Updated by [email or web address]: Janey Benson on 07/28/19 5:20 pm * Is the patient Alert and Oriented? Yes * How many steps to enter\exit or inside your home? RAMP * PCP CAVANAUGH * Pharmacy [facility] * Preadmission Environment Home Alone * ADLs Partial Dependent * Partial ADLs (Assistance needed) Ambulation Bathing Toileting Transfers * Equipment Bedside Commode Elevated [place] Seat Grab Bars Hospital Bed Nebulizer Oxygen Rolling Walker Shower Chair Tub Bench Walker Wheelchair * List name and contact numbers for known caregivers / representatives who currently or will assist patient after discharge: NORBERTO (DAUGHTER) [phone] * Verbal permission to speak to the caregivers and representatives has been obtained from the patient. N/A * Community resources currently utilized [employer] * Please name any agencies selected above. [facility] * Additional services required to return to the preadmission environment? Yes * Can the patient safely return to the preadmission environment? Yes * Has this patient been hospitalized within the prior 30 days at any hospital? No Patient Name: CHYNA LINO Page 74658 at 1720 All edits/amendments must be made on the electronic document DICTATION DATE: 07/28/191719 BODY FORMER: VIMAL 07/28/19 172 RPT#: [id number] DC DATE: STATUS: REG [facility] [address] [place] [address] END OF REPORT
--- NOTE | 2019-07-28 17:29 | MORECARE ---
CASE MANAGEMENT DISCHARGE SUMMARY PATIENT: CHYNA LINO UNIT: [id number] ADM DATE: 07/27/19 AGE: 73 : [birth year] SEX: F ROOM/BED: D.2215 AUTHOR: LUCIEN,DOC PHYSICIAN: REFERRING PHYSICIAN: KERI SINGLETON MD DATE OF SERVICE: 07/28/19 Discharge Plan Patient Name: CHYNA LINO Facility: [facility]:[place] : 1945 Planned Disposition: Home or Self Care Anticipated Discharge Date: Discharge Date: Expected LOS: 0 Initial Reviewer: [email or web address] Initial Review Date: 07/28/2019 Generated: 07/28/19 6:28 pm Comments DCP- Discharge Planning Updated by [email or web address]: Janey Benson on 07/28/19 4:[address] Patient Name: CHYNA LINO Admission Status: Elective Accout number: [id number] Admission Date: 07-27-2019 : 1945 Admission Diagnosis: Attending: KERI SINGLETON Current LOS: 1 Anticipated DC Date: Planned Disposition: Home or Self Care Primary Insurance: [facility] MEDICARE SOLUTIONS Discharge Planning Comments: CM met with patient to complete initial dc planning assessment. CM educated patient on the CM role and verbal consent given by patient to complete assessment. Patient lives at home by herself where she is partially dependent with her ADL's . At discharge patient plans to return home and feels this is a safe discharge. CM discussed availability of home health, rehab services, and medical equipment. She stated that she lives in a handicap home and has 24/7 care with [facility]. She has a hospital bed, wheelchair, walker, grab bars, shower chair, home O2 (PRN) and nebulizer. She could not remember the [employer] company for O2. Summer will be her local company refrigerated truck driver home at discharge. Patient denied known discharge needs at this time. CM will continue to follow and will assist as needed with dc plans/needs. Monkey Breeder: Janey Benson DCPIA - Discharge Planning Initial Assessment Updated by [email or web address]: Janey Benson on 07/28/19 5:20 pm * Is the patient Alert and Oriented? Yes * How many steps to enter\exit or inside your home? RAMP * PCP AFSHAN * Pharmacy [facility] [address] * Preadmission Environment Home Alone * ADLs Partial Dependent * Partial ADLs (Assistance needed) Ambulation Bathing Toileting Transfers * Equipment Bedside Commode Elevated [place] Seat Grab Bars Hospital Bed Nebulizer Oxygen Rolling Walker Shower Chair Tub Bench Walker Wheelchair * List name and contact numbers for known caregivers / representatives who currently or will assist patient after discharge: NORBERTO (DAUGHTER) [phone] * Verbal permission to speak to the caregivers and representatives has been obtained from the patient. N/A * Community resources currently utilized [employer] * Please name any agencies selected above. [facility] * Additional services required to return to the preadmission environment? Yes * Can the patient safely return to the preadmission environment? Yes * Has this patient been hospitalized within the prior 30 days at any hospital? No Last DP export: 07/28/19 4:20 p Patient Name: CHYNA LINO Page [phone] at 1729 All edits/amendments must be made on the electronic document DICTATION DATE: 07/28/191727 WATER AND GAS HELPER: VIMAL 07/28/191727 RPT#: [id number] DC DATE: STATUS: [facility] [address] [place] [address] END OF REPORT
--- NOTE | 2019-07-28 19:40 | NUR ---
PT SITTING UP IN BED WITHOUT DISTRESS, AOX4. IV LEFT FA INFUSING 1/2NS @ 50. STATES PAIN 04/16. GAVE OXY ORDERED. RIGHT LEG DRESSING WITH SLIGHT DRAINAGE ON OUTER MATILDA WRAP. ICE PACKS ON KNEE. DENIES OTHER NEEDS. CL IN REACH, WILL CTM
[2019-07-28 20:00] VITALS: BP 142/83
[2019-07-29] VITALS: BP 141/80
[2019-07-29 04:00] VITALS: BP 134/77
[2019-07-29 05:16] LABS: BASOPHILS 0.2 % (0-2); EOSINOPHILS 1.1 % (0-7); HEMATOCRIT 39.1 % (36.0-48.0); HEMOGLOBIN 12.6 g/dL (12-16); IMMATURE GRANULOCYTES 0.3 % (0-5); LYMPHOCYTES 21.7 % (15-50); MCH 32.1 pg (26.0-34.0); MCHC 32.2 g/dL (31.0-37.0); MCV 99.7 fL (80.0-100.0); MEAN PLATELET VOLUME 10.7 fL (7.4-10.4); MONOCYTES 6.3 % (2-11); NEUTROPHILS 70.4 % (40-80); PLATELET COUNT 151 10x3/uL (130-400); RBC 3.92 10x6/uL (4.00-5.40); RDW 13.7 % (11.5-14.5)
[2019-07-29 05:18] LABS: CALCIUM 7.9 mg/dL (8.5-10.1); CARBON DIOXIDE 35.2 mmol/L (21.0-32.0); CREATININE - SERUM 0.9 mg/dL (0.6-1.3); MAGNESIUM - SERUM 1.8 mg/dL (1.8-2.4)
[2019-07-29 05:21] LABS: POTASSIUM - SERUM 4.2 mmol/L (3.5-5.1)
[2019-07-29 05:26] LABS: WBC 11.3 10x3/uL (4.8-10.8)
[2019-07-29 08:48] VITALS: BP 154/86
[2019-07-29 12:48] VITALS: BP 133/85
[2019-07-29 16:40] VITALS: BP 114/72
--- NOTE | 2019-07-29 17:10 | NUR ---
OTNOTE: PT COMPLETED BED MOB WITH SBA. PT COMPLETED GROOMING TASKS WITH SETUP. PT COMPLETED UE AROM AX. NURSING NOTIFIED PUREWICK NEEDED REPLACED. THANK YOU,SANDY GA
[2019-07-29 19:34] VITALS: BP 118/78
--- NOTE | 2019-07-29 20:00 | NUR ---
PT SITTING UP IN BED WITHOUT DISTRESS, AOX4. O2 2L/NC. IV LEFT FA INFUSING 1/2NS @ 30. SCD IN PLACE TO LEFT LEG, PLEXI TO RIGHT. ICE PACK ON TOP OF KNEE. MATILDA WRAP TO RIGHT KNEE. IMMOBILIZER ON. PUREWICK IN PLACE. STATES PAIN 7/10 IN RIGHT LEG, WILL GIVE PAIN MED ORDERED, SEE MAR. DENIES OTHER NEEDS. WILL CTM
[2019-07-30 04:00] VITALS: BP 145/81
[2019-07-30 06:35] LABS: BASOPHILS 0.4 % (0-2); EOSINOPHILS 4.7 % (0-7); HEMATOCRIT 43.1 % (36.0-48.0); HEMOGLOBIN 13.7 g/dL (12-16); IMMATURE GRANULOCYTES 0.2 % (0-5); LYMPHOCYTES 31.9 % (15-50); MCH 32.2 pg (26.0-34.0); MCHC 31.8 g/dL (31.0-37.0); MCV 101.4 fL (80.0-100.0); MEAN PLATELET VOLUME 11.8 fL (7.4-10.4); MONOCYTES 13.9 % (2-11); NEUTROPHILS 48.9 % (40-80); PLATELET COUNT 130 10x3/uL (130-400); RBC 4.25 10x6/uL (4.00-5.40); RDW 13.9 % (11.5-14.5); WBC 9.9 10x3/uL (4.8-10.8)
[2019-07-30 06:51] LABS: CALC OSMOLALITY 281 mosm/kg (275-300); CALCIUM 8.3 mg/dL (8.5-10.1); CARBON DIOXIDE 33.2 mmol/L (21.0-32.0); CHLORIDE - SERUM 106 mmol/L (98-107); CREATININE - SERUM 0.7 mg/dL (0.6-1.3); GLUCOSE 80 mg/dL (74-106); MAGNESIUM - SERUM 2.1 mg/dL (1.8-2.4); POTASSIUM - SERUM 4.5 mmol/L (3.5-5.1); SODIUM 142 mmol/L (136-145); UREA NITROGEN 13 mg/dL (7-18); eGFR NON AFRICAN AMERICAN 87 mL/min (90-120)
--- NOTE | 2019-07-30 07:29 | NUR ---
PATIENT AWAKE AND ALERT. ON PHONE. CL IN REACH. FALL PRECAUTIONS IN PLACE. DENIES ANY NEEDS. STATES SHE HAD A "GOOD NAP." WCTM
--- NOTE | 2019-07-30 08:20 | OP ---
PATIENT NAME: CHYNA LINO MEDICAL RECORD: [id number] :[birth year] LOCATION:[facility] ADMISSION DATE:07/28/19 SURGEON: KERI SINGLETON MD DATE OF OPERATION: 07/27/2019 PREOPERATIVE DIAGNOSIS: Painful hardware of the right lower extremity. POSTOPERATIVE DIAGNOSIS: Painful hardware of the right lower extremity. PROCEDURE: Removal of hardware. SURGEON: Keri Singleton MD CLINICAL DATA ASSOCIATE: RAFAEL Tovar. INTRAOPERATIVE COMPLICATIONS: None. SUMMARY OF PATHOLOGIC FINDINGS: Essentially none. The patient had well-healed bone, unfortunately has terrible arthritis. Her biggest complaint, however, is that the protrusion of the plate under her now thin skin, both in the anterior tibial as well as the lateral side where the plate lies. OPERATIVE SUMMARY IN DETAIL: After obtaining the appropriate preoperative orthopedic surgery consent as well as anesthetic consultation, evaluation, and clearance, the patient was brought to the operating room and placed on the operating table in the supine position. After adequate general laryngeal mask airway was administered, tourniquet was placed about the proximal aspect of the right lower extremity. Right lower extremity was then prepped and draped in routine sterile fashion. At this point, appropriate timeout was taken and agreed upon by all given the patient's unique identifiers. The leg was elevated and exsanguinated, tourniquet inflated to 300 mmHg. The previously utilized incision for lateral-based periarticular tibial plateau fracture plate was utilized. Dissection was then carried gently down to the level of the plate. All screws were then found and serial and sequential removal was done using a power and all screws were removed. The plate was removed and the small areas of protruding bone and periosteum were taken down with a rongeur for a smooth transition. The wound was irrigated and then closed with #1-Vicryl followed by 2-0 Vicryl and skin bhargavi. Sterile dressings were applied. Tourniquet was deflated. The patient was awakened and taken to the recovery room in stable condition. All final needle and sponge counts were correct. TRANSINT:[id number] Voice Confirmation ID: [id number] DOCUMENT ID: [id number] KERI SINGLETON MD at 0820 CC: [id number] DICTATION DATE: 07/27/19 1236 ROD FINISHER: 07/27/[address] [facility] [address] [id number]
[2019-07-30 08:49] VITALS: BP 154/93
--- NOTE | 2019-07-30 14:19 | MORECARE ---
CASE MANAGEMENT DISCHARGE SUMMARY PATIENT: CHYNA LINO UNIT: [id number] ADM DATE: 07/28/19 AGE: 73 : 49 SEX: F ROOM/BED: D.2217 AUTHOR: MIRA MCGRAW PHYSICIAN: REFERRING PHYSICIAN: KERI SINGLETON MD DATE OF SERVICE: 07/30/19 Discharge Plan Patient Name: CHYNA LINO Facility: [facility]:[place] : 1945 Planned Disposition: Home or Self Care Anticipated Discharge Date: Discharge Date: Expected LOS: 0 Initial Reviewer: [id number] Initial Review Date: 07/28/2019 Generated: 07/30/19 3:18 pm Comments DCP- Discharge Planning Updated by [email or web address]: Janey Benson on 07/30/19 1:[address] Patient Name: CHYNA LINO Encounter No: [id number] : 1945 Primary Insurance: [employer] MEDICARE SOLUTIONS Anticipated DC Date: Planned Disposition: Home or Self Care External Planned Provider: : DCP follow-up note: Patient and family in agreement with discharge plan. Her granddaughter is here to take her home. No changes to plan. Case management will follow and assist as needed. Janey Benson DCP- Discharge Planning Updated by [email or web address]: Janey Benson on 07/28/19 4:[address] Patient Name: CHYNA LINO Admission Status: Elective Accout number: [id number] Admission Date: 07-27-2019 : 1945 Admission Diagnosis: Attending: KERI SINGLETON Current LOS: 1 Anticipated DC Date: Planned Disposition: Home or Self Care Primary Insurance: [facility] MEDICARE SOLUTIONS Discharge Planning Comments: CM met with patient to complete initial dc planning assessment. CM educated patient on the CM role and verbal consent given by patient to complete assessment. Patient lives at home by herself where she is partially dependent with her ADL's . At discharge patient plans to return home and feels this is a safe discharge. CM discussed availability of home health, rehab services, and medical equipment. She stated that she lives in a handicap home and has 24/7 care with [facility]. She has a hospital bed, wheelchair, walker, grab bars, shower chair, home O2 (PRN) and nebulizer. She could not remember the [employer] company for O2. 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 Patient denied known discharge needs at this time. CM will continue to follow and will assist as needed with dc plans/needs. Head Orthopedic Team Physician: Janey Benson DCPIA - Discharge Planning Initial Assessment Updated by [email or web address]: Janey Benson on 07/28/19 5:20 pm * Is the patient Alert and Oriented? Yes * How many steps to enter\exit or inside your home? RAMP * PCP CAVANAUGH * Pharmacy [facility] [address] * Preadmission Environment Home Alone * ADLs Partial Dependent * Partial ADLs (Assistance needed) Ambulation Bathing Toileting Transfers * Equipment Bedside Commode Elevated [place] Seat Grab Bars Hospital Bed Nebulizer Oxygen Rolling Walker Shower Chair Tub Bench Walker Wheelchair * List name and contact numbers for known caregivers / representatives who currently or will assist patient after discharge: NORBERTO (DAUGHTER) [phone] * Verbal permission to speak to the caregivers and representatives has been obtained from the patient. N/A * Community resources currently utilized [employer] * Please name any agencies selected above. [facility] * Additional services required to return to the preadmission environment? Yes * Can the patient safely return to the preadmission environment? Yes * Has this patient been hospitalized within the prior 30 days at any hospital? No Coverage Notice Reviewer: [id number] - Janey Benson Notice Issued Date-Time: 07/28/2019 17:00 Notice Type: Patient Choice Letter Notice Delivered To: Patient Relationship to Patient: Torch Burner Name: Delivery Method: HAND - Hand Delivered Bonita Days: Prior Verbal Notification: Recipient Understood Notice: Yes Recipient Signature: Yes Med Rec Note Co-signed by Attending: Coverage Notice Comment: EVERETT ZIEGLER Last DP export: 07/28/19 4:29 p Patient Name: CHYNA LINO Page 11030 at 1419 All edits/amendments must be made on the electronic document DICTATION DATE: 07/30/191417 CEMENT SPRAYER HELPER: VIMAL 07/30/191417 RPT#: [id number] DC DATE: STATUS: ADM IN [facility] [address] [place] [address] END OF REPORT
--- NOTE | 2019-07-30 15:27 | NUR ---
IV THERAPY DC'ED FROM LEFT FOREARM. VERBALIZED UNDERSTANDING OF DISCHARGE INSTRUCTIONS. DRESSING CHANGE. PATIENT REQUESTED AND RECEIVED AN MATILDA WRAP ASSISTED TO FRONT BY MYSELF WITH MIN ASSIST.
--- NOTE | 2019-07-30 18:24 | NUR ---
OT NOTE: PT STATED SHE IS GOING HOME TODAY. PT EDUCATED ON SAFETY WITH TRANSFERS AND ADHERING TO PRECAUTIONS. [phone] THANK YOU,SANDY GA
--- NOTE | 2019-08-03 08:53 | MORECARE ---
CASE MANAGEMENT DISCHARGE SUMMARY PATIENT: CHYNA LINO UNIT: [id number] ADM DATE: 07/28/19 AGE: 73 : 47 SEX: F ROOM/BED: D.2217 AUTHOR: LUCIEN,DOC PHYSICIAN: REFERRING PHYSICIAN: KERI SINGLETON MD DATE OF SERVICE: 08/03/19 Discharge Plan Patient Name: CHYNA LINO Facility: [facility]:[place] : 1945 Planned Disposition: Home or Self Care Anticipated Discharge Date: Discharge Date: 07/30/2019 Expected LOS: 0 Initial Reviewer: [email or web address] Initial Review Date: 07/28/2019 Generated: 08/03/19 9:52 am DCP- Discharge Planning Updated by [email or web address]: Janey Benson on 07/30/19 1:[address] Patient Name: CHYNA LINO Encounter No: [id number] : 1945 Primary Insurance: [employer] SOLUTIONS Anticipated DC Date: Planned Disposition: Home or Self Care External Planned Provider: : DCP follow-up note: Patient and family in agreement with discharge plan. Her granddaughter is here to take her home. No changes to plan. Case management will follow and assist as needed. Janey Benson DCP- Discharge Planning Updated by [email or web address]: Janey Benson on 07/28/19 4:[address] Patient Name: CYHNA LINO Admission Status: Elective Accout number: [id number] Admission Date: 07-27-2019 : 1945 Admission Diagnosis: Attending: KERI SINGLETON Current LOS: 1 Anticipated DC Date: Planned Disposition: Home or Self Care Primary Insurance: [facility] MEDICARE SOLUTIONS Discharge Planning Comments: CM met with patient to complete initial dc planning assessment. CM educated patient on the CM role and verbal consent given by patient to complete assessment. Patient lives at home by herself where she is partially dependent with her ADL's . At discharge patient plans to return home and feels this is a safe discharge. CM discussed availability of home health, rehab services, and medical equipment. She stated that she lives in a handicap home and has 24/7 care with [facility]. She has a hospital bed, wheelchair, walker, grab bars, shower chair, home O2 (PRN) and nebulizer. She could not remember the [employer] company for O2. Summer will be her rolloff driver home at discharge. Patient denied known discharge needs at this time. CM will continue to follow and will assist as needed with dc plans/needs. Network Systems Administrator: Janey Benson DCPIA - Discharge Planning Initial Assessment Updated by [email or web address]: Janey Benson on 07/28/19 5:20 pm * Is the patient Alert and Oriented? Yes * How many steps to enter\exit or inside your home? RAMP * PCP CAVANAUGH * Pharmacy [facility] * Preadmission Environment Home Alone * ADLs Partial Dependent * Partial ADLs (Assistance needed) Ambulation Bathing Toileting Transfers * Equipment Bedside Commode Elevated [place] Seat Grab Bars Hospital Bed Nebulizer Oxygen Rolling Walker Shower Chair Tub Bench Walker Wheelchair * List name and contact numbers for known caregivers / representatives who currently or will assist patient after discharge: NORBERTO (DAUGHTER) [phone] * Verbal permission to speak to the caregivers and representatives has been obtained from the patient. N/A * Community resources currently utilized [employer] * Please name any agencies selected above. [facility] * Additional services required to return to the preadmission environment? Yes * Can the patient safely return to the preadmission environment? Yes * Has this patient been hospitalized within the prior 30 days at any hospital? No Coverage Notice Reviewer: [id number] - Janey Benson Notice Issued Date-Time: 07/28/2019 17:00 Notice Type: Patient Choice Letter Notice Delivered To: Patient Relationship to Patient: Diesel Pile Hammer Operator Name: Delivery Method: HAND - Hand Delivered Bonita Days: Prior Verbal Notification: Recipient Understood Notice: Yes Recipient Signature: Yes Med Rec Note Co-signed by Attending: Coverage Notice Comment: [facility] Last DP export: 07/30/19 1:19 p Patient Name: CHYNA LINO Page [phone] at 0853 All edits/amendments must be made on the electronic document DICTATION DATE: 08/03/1950 EXTRUDER OPERATOR: VIMAL 08/03/19 0852 RPT#: [id number] DC DATE:07/30/19 STATUS: DIS IN [facility] [address] [place] [address] END OF REPORT
== END 2019-07-30 15:28 | disposition home or self-care (01) | DRG 496 ==
LOC: D.OPS 09:50 → D.PAN 16:15 → D.OPS 16:15 → D.MS 16:33 → D.OPS 07-28 17:35 → D.MS 07-30 15:28
PROVIDERS: Anesthesiology; Family Medicine; ADMIT Orthopaedic Surgery; ATTEND Orthopaedic Surgery
PROC: 0QPG04Z Removal of Internal Fixation Device from Right Tibia, Open Approach (ICD-10-PCS; principal; 2019-07-27 12:00)
DX: T84.84XA Pain due to internal orthopedic prosthetic devices, implants and grafts, initial encounter (principal); M87.9 Osteonecrosis, unspecified; D72.829 Elevated white blood cell count, unspecified; M19.90 Unspecified osteoarthritis, unspecified site

== ENCOUNTER 2019-08-05 11:34 | Emergency (ER) | payer MEDICARE, MEDICAID ==
[~2019-08-05] VITALS: Ht 172.7 cm; Wt 65.9 kg
[~2019-08-05 11:34] MED LIST changes: +AMOXICILLIN500 M1 PO; +ATARAX 25 MG TA25 MG PO; +OXYCODONE HCL10 MG PO
[2019-08-05 11:40] VITALS: Ht 172.7 cm; Wt 65.9 kg
[2019-08-05 12:00] LABS: BASOPHILS 0.7 % (0-2); EOSINOPHILS 10.4 % (0-7); IMMATURE GRANULOCYTES 0.2 % (0-5); LYMPHOCYTES 49.6 % (15-50); MCH 33.1 pg (26.0-34.0); MCHC 33.3 g/dL (31.0-37.0); MCV 99.3 fL (80.0-100.0); MEAN PLATELET VOLUME 9.7 fL (7.4-10.4); MONOCYTES 10.1 % (2-11); RBC 4.53 10x6/uL (4.00-5.40); RDW 13.9 % (11.5-14.5); WBC 8.6 10x3/uL (4.8-10.8)
[2019-08-05 12:16] LABS: PLATELET COUNT 287 10x3/uL (130-400)
[2019-08-05 12:22] LABS: CALC OSMOLALITY 274 mosm/kg (275-300); CALCIUM 9.2 mg/dL (8.5-10.1); CARBON DIOXIDE 31.9 mmol/L (21.0-32.0); CHLORIDE - SERUM 101 mmol/L (98-107); CREATININE - SERUM 0.7 mg/dL (0.6-1.3); GLUCOSE 101 mg/dL (74-106); POTASSIUM - SERUM 3.9 mmol/L (3.5-5.1); SODIUM 139 mmol/L (136-145); UREA NITROGEN 5 mg/dL (7-18); eGFR NON AFRICAN AMERICAN 87 mL/min (90-120)
[2019-08-05 12:24] LABS: APTT 37.6 SECONDS (22.8-39.4); INR 0.97 (0.85-1.17); PROTIME 12.8 SECONDS (11.6-15.0)
[2019-08-05 12:36] LABS: ALBUMIN 2.9 g/dL (3.4-5.0); ALKALINE PHOSPHATASE 88 U/L (30-120); ALT (SGPT) 12 U/L (10-68); BILIRUBIN - TOTAL 0.25 mg/dL (0.2-1.3); CKMB 0.7 U/L (0.0-3.6); CREATINE KINASE 26 UL (21-215); MAGNESIUM - SERUM 1.8 mg/dL (1.8-2.4); PROTEIN - SERUM 7.5 g/dL (6.4-8.2); THYROID STIMULATING HORMONE 4.31 uIU/mL (0.36-3.74); TROPONIN-I < 0.017 ng/mL (0.000-0.060)
[2019-08-05 15:29] VITALS: BP 120/80
== END 2019-08-05 15:30 | disposition home or self-care (01) ==
LOC: D.ER 11:34
PROVIDERS: Family Medicine
DX: J02.9 Acute pharyngitis, unspecified (principal); Z86.73 Personal history of transient ischemic attack (TIA), and cerebral infarction without residual deficits; G62.9 Polyneuropathy, unspecified; Z99.81 Dependence on supplemental oxygen; K21.9 Gastro-esophageal reflux disease without esophagitis; Z72.0 Tobacco use

== ENCOUNTER 2020-09-25 15:06 | Emergency (ER) | payer MEDICARE, MEDICAID ==
[~2020-09-25] VITALS: Ht 172.7 cm; Wt 54.5 kg
[2020-09-25 15:08] VITALS: Ht 172.7 cm; Wt 54.5 kg
[2020-09-25 15:45] LABS: BASOPHILS 1.1 % (0-2); EOSINOPHILS 7.4 % (0-7); HEMOGLOBIN 14.3 g/dL (12-16); LYMPHOCYTE ABS# 2.38 10x3/uL (1.18-3.74); LYMPHOCYTES 45.4 % (15-50); MCH 35.1 pg (26.0-34.0); MCV 103.2 fL (80.0-100.0); MEAN PLATELET VOLUME 10.3 fL (7.4-10.4); NEUTROPHIL ABS# 1.78 10x3/uL (1.56-6.13); NEUTROPHILS 34.1 % (40-80); RBC 4.07 10x6/uL (4.00-5.40); RDW 13.6 % (11.5-14.5); WBC 5.2 10x3/uL (4.8-10.8)
[2020-09-25 15:47] LABS: CALC OSMOLALITY 270 mosm/kg (275-300); CALCIUM 9.3 mg/dL (8.5-10.1); CARBON DIOXIDE 28.1 mmol/L (21.0-32.0); CHLORIDE - SERUM 99 mmol/L (98-107); GLUCOSE 90 mg/dL (74-106); POTASSIUM - SERUM 4.6 mmol/L (3.5-5.1); SODIUM 135 mmol/L (136-145); UREA NITROGEN 15 mg/dL (7-18); eGFR NON AFRICAN AMERICAN 58 mL/min (90-120)
[2020-09-25 15:48] LABS: PLATELET COUNT 94 10x3/uL (130-400)
[2020-09-25 15:51] LABS: PLATELET ESTIMATE DECREASED
[2020-09-25 15:55] LABS: ALKALINE PHOSPHATASE 226 U/L (30-120); ALT (SGPT) 45 U/L (10-68); AMYLASE - SERUM 15 U/L (25-115); BILIRUBIN - TOTAL 1.33 mg/dL (0.2-1.3); LIPASE 125 U/L (73-393)
[2020-09-25 15:56] LABS: TROPONIN-I < 0.017 ng/mL (0.000-0.060)
[2020-09-25] MEDS ORDERED: ZOFRAN ODT4 MG/UDTAB PO (17:18)
[2020-09-25] MEDS ORDERED: FLORASTOR250 MG PO (17:18)
[2020-09-25 18:18] VITALS: BP 115/74
== END 2020-09-25 18:19 | disposition home or self-care (01) ==
LOC: D.ER 15:06
PROVIDERS: Family Medicine
DX: R10.9 Unspecified abdominal pain (principal); R11.2 Nausea with vomiting, unspecified; R19.7 Diarrhea, unspecified; Z86.73 Personal history of transient ischemic attack (TIA), and cerebral infarction without residual deficits; G62.9 Polyneuropathy, unspecified; K21.9 Gastro-esophageal reflux disease without esophagitis

== ENCOUNTER 2020-10-21 12:14 | Inpatient (IN) | payer MEDICARE, MEDICAID ==
[~2020-10-21] VITALS: Ht 172.7 cm; Wt 54.4 kg
[~2020-10-21 12:14] MED LIST changes: +FLORASTOR250 MG PO
[2020-10-21 14:00] LABS: BASOPHILS 0.2 % (0-2); EOSINOPHILS 0.1 % (0-7); HEMATOCRIT 47.2 % (36.0-48.0); HEMOGLOBIN 15.8 g/dL (12-16); IMMATURE GRANULOCYTES 0.2 % (0-5); LYMPHOCYTE ABS# 1.07 10x3/uL (1.18-3.74); LYMPHOCYTES 10.7 % (15-50); MCH 34.2 pg (26.0-34.0); MCHC 33.5 g/dL (31.0-37.0); MCV 102.2 fL (80.0-100.0); MEAN PLATELET VOLUME 10.7 fL (7.4-10.4); MONOCYTES 12.5 % (2-11); NEUTROPHIL ABS# 7.65 10x3/uL (1.56-6.13); NEUTROPHILS 76.3 % (40-80); RBC 4.62 10x6/uL (4.00-5.40); RDW 13.5 % (11.5-14.5)
[2020-10-21 14:03] LABS: PLATELET COUNT 202 10x3/uL (130-400)
[2020-10-21 14:08] LABS: CALC OSMOLALITY 282 mosm/kg (275-300); CALCIUM 9.4 mg/dL (8.5-10.1); CARBON DIOXIDE 28.4 mmol/L (21.0-32.0); CHLORIDE - SERUM 101 mmol/L (98-107); CREATININE - SERUM 0.8 mg/dL (0.6-1.3); GLUCOSE 125 mg/dL (74-106); POTASSIUM - SERUM 4.2 mmol/L (3.5-5.1); SODIUM 142 mmol/L (136-145); UREA NITROGEN 11 mg/dL (7-18); eGFR NON AFRICAN AMERICAN 75 mL/min (90-120)
[2020-10-21 14:17] LABS: ALBUMIN 3.4 g/dL (3.4-5.0); ALKALINE PHOSPHATASE 166 U/L (30-120); ALT (SGPT) 26 U/L (10-68); BILIRUBIN - TOTAL 1.29 mg/dL (0.2-1.3); CREATINE KINASE 143 UL (21-215); PROTEIN - SERUM 8.3 g/dL (6.4-8.2); TROPONIN-I < 0.017 ng/mL (0.000-0.060)
[2020-10-21 16:44] LABS: BILIRUBIN NEGATIVE (NEGATIVE); KETONE MODERATE mg/dL (NEGATIVE); NITRITE NEGATIVE (NEGATIVE); UROBILINOGEN NORMAL mg/dL (< 2)
[2020-10-21 16:48] LABS: BACTERIA FEW HPF (NONE SEEN); SQUAMOUS EPITHELIAL 0-5 HPF (0-4)
[2020-10-21 20:02] VITALS: BP 165/98
[2020-10-21 20:39] LABS: CKMB 3.5 U/L (0.0-3.6); CREATINE KINASE 153 UL (21-215); TROPONIN-I < 0.017 ng/mL (0.000-0.060)
--- NOTE | 2020-10-21 21:34 | NUR ---
DR SANZ ROUNDED, NOTIFIED OF HR IN 30'S-50'S AND SP02 IN 80'S, INSTRUCTED TO PLACE PT ON 02 VIA NC. NOTIFIED OF PT REQUEST FOR HOME MEDS OF CHRISTOPH CHIN AND MD ZBIGNIEW SAID OKAY TO START MEDS PT TAKES AT HOME BUT D/C AMITRIPTYLINE. PT ADMITTED, ASSESSMENT COMPLETE. 02 VIA NC @2L. 20G TO LEFT HAND WITH 1/2 NS @75 ML/HR. PT DAUGHTER LEFT FOR NIGHT. PT AAOX4, CALL LIGHT WITHIN REACH. BED LOW AND LOCKED. PT INCONT OF URINE AND STOOL, CLEAN AT THIS TIME AND PUREWICK PLACED. WILL CONT TO ASSESS.
--- NOTE | 2020-10-22 01:32 | NUR ---
EKG COMPLETED AND URINE COLLECTED. PT DROWSY BUT WOKE WHEN NURSE ENTERED ROOM, DENIES COMPLAINTS OR UNMET NEEDS, CALL LIGHT WITHIN REACH.
[2020-10-22 02:51] LABS: CKMB 2.2 U/L (0.0-3.6); CREATINE KINASE 121 UL (21-215)
[2020-10-22 02:52] LABS: TROPONIN-I < 0.017 ng/mL (0.000-0.060)
--- NOTE | 2020-10-22 05:00 | NUR ---
pt woke when vitals were taken, requests PRN norco and flexeril, meds given as requested. purewick checked at this time and is in place, pt clean and dry, 150ml urine output so far this shift, urine is concentrated and tee. pt oriented and call light is within reach.
[2020-10-22 05:46] VITALS: BP 132/79
[2020-10-22 06:30] LABS: BASOPHILS 0.5 % (0-2); EOSINOPHILS 1.7 % (0-7); HEMATOCRIT 38.7 % (36.0-48.0); IMMATURE GRANULOCYTES 0.2 % (0-5); LYMPHOCYTE ABS# 2.37 10x3/uL (1.18-3.74); LYMPHOCYTES 35.9 % (15-50); MCH 33.5 pg (26.0-34.0); MCHC 32.6 g/dL (31.0-37.0); MCV 102.9 fL (80.0-100.0); MEAN PLATELET VOLUME 11.2 fL (7.4-10.4); MONOCYTES 13.9 % (2-11); NEUTROPHIL ABS# 3.16 10x3/uL (1.56-6.13); NEUTROPHILS 47.8 % (40-80); PLATELET COUNT 174 10x3/uL (130-400); RBC 3.76 10x6/uL (4.00-5.40); RDW 13.7 % (11.5-14.5)
[2020-10-22 06:41] LABS: HEMOGLOBIN 12.6 g/dL (12-16); WBC 6.6 10x3/uL (4.8-10.8)
[2020-10-22 06:50] LABS: ANION GAP 12.5 mmol/L (8-16); BILIRUBIN - TOTAL 0.78 mg/dL (0.2-1.3); CARBON DIOXIDE 27.8 mmol/L (21.0-32.0); CREATININE - SERUM 0.8 mg/dL (0.6-1.3); MAGNESIUM - SERUM 1.6 mg/dL (1.8-2.4); PHOSPHOROUS 3.9 mg/dL (2.5-4.9); POTASSIUM - SERUM 4.3 mmol/L (3.5-5.1); PROTEIN - SERUM 6.5 g/dL (6.4-8.2); THYROID STIMULATING HORMONE 4.68 uIU/mL (0.36-3.74)
[2020-10-22 06:51] LABS: ALBUMIN 2.5 g/dL (3.4-5.0)
[2020-10-22 06:56] LABS: APTT 34.9 SECONDS (22.8-39.4); INR 1.14 (0.85-1.17); PROTIME 13.6 SECONDS (11.6-15.0)
[2020-10-22 09:15] VITALS: BP 111/64
[2020-10-22 09:44] LABS: CKMB 1.5 U/L (0.0-3.6); CREATINE KINASE 120 UL (21-215); TROPONIN-I < 0.017 ng/mL (0.000-0.060)
[2020-10-22 13:50] VITALS: BP 112/62
[2020-10-22 14:06] VITALS: Ht 172.7 cm; Wt 54.4 kg
[2020-10-22 17:42] LABS: MACROPHAGES BF 24 %; NEUT - BF 56 %
[2020-10-22 18:34] VITALS: BP 116/70
--- NOTE | 2020-10-22 19:30 | NUR ---
pt incont urine, full bed bath with soap and water and CHG given with full linen and gown change. purewick changed and in correct place. pt denies complaints or unmet needs. call light within reach.
[2020-10-22 20:00] VITALS: BP 152/78
--- NOTE | 2020-10-22 22:30 | NUR ---
PT WITH LARGE INCONT LIQUID STOOL, CLEANED AND REPLACED PUREWICK.
[2020-10-23] VITALS: BP 132/65
[2020-10-23 04:00] VITALS: BP 122/75
--- NOTE | 2020-10-23 05:40 | NUR ---
PT WITH MULTPLE LIQUID BM'S, REQUESTED MD BE NOTIFIED AND REQUESTED PRN TO STOP DIARRHEA, MARIO VILLEDA PAGED AND ORDER FOR STOOL SAMPLE OBTAINED TO TEST FOR C-DIFF, O&P AND STOOL CULTURE, STOOL SAMPLE OBTAINED AND SENT TO LAB. EXPLAINED TO PT NEED TO WAIT FOR MD TO DETERMINE CAUSE OF DIARRHEA BEFORE PERSCRIBING MED, PT VERBALIZED UNDERSTANDING. PRN NORCO AND VALIUM GIVEN PER PT REQUEST. NO COMPLAINTS OR UNMET NEEDS VOICED, CALL LIGHT WITHIN REACH.
[2020-10-23 06:48] LABS: BASOPHILS 0.1 % (0-2); EOSINOPHILS 0 % (0-7); HEMOGLOBIN 12.2 g/dL (12-16); LYMPHOCYTES 10.3 % (15-50); MCH 34.1 pg (26.0-34.0); MCV 103.4 fL (80.0-100.0); MEAN PLATELET VOLUME 11.1 fL (7.4-10.4); NEUTROPHIL ABS# 5.67 10x3/uL (1.56-6.13); NEUTROPHILS 83.6 % (40-80); PLATELET COUNT 162 10x3/uL (130-400); RBC 3.58 10x6/uL (4.00-5.40); RDW 13.4 % (11.5-14.5); WBC 6.8 10x3/uL (4.8-10.8)
[2020-10-23 07:18] LABS: CALC OSMOLALITY 281 mosm/kg (275-300); CALCIUM 8.3 mg/dL (8.5-10.1); CHLORIDE - SERUM 106 mmol/L (98-107); CREATININE - SERUM 0.7 mg/dL (0.6-1.3); MAGNESIUM - SERUM 1.6 mg/dL (1.8-2.4); POTASSIUM - SERUM 4.2 mmol/L (3.5-5.1); SODIUM 139 mmol/L (136-145); UREA NITROGEN 18 mg/dL (7-18); eGFR NON AFRICAN AMERICAN 87 mL/min (90-120)
[2020-10-23 07:25] LABS: GLUCOSE 143 mg/dL (74-106)
[2020-10-23 10:07] VITALS: BP 115/65
[2020-10-23 14:15] VITALS: BP 109/67
--- NOTE | 2020-10-23 16:55 | NUR ---
PT ANTIGEN POSITIVE FOR C-DIFF, PT PLACED ON CONTACT ISOLATION, SPOKE WITH OMAR MARTIN, NO NEW ORDERS AT THIS TIME
[2020-10-23 18:03] VITALS: BP 116/64
[2020-10-23 20:00] VITALS: BP 124/74
--- NOTE | 2020-10-24 03:00 | NUR ---
I have reviewed this patient and I concur with the Shift Assessment completed by the Licensed Practical Nurse today this shift.
[2020-10-24 04:00] VITALS: BP 134/80
[2020-10-24 05:53] LABS: BASOPHILS 0 % (0-2); EOSINOPHILS 0 % (0-7); HEMATOCRIT 36.6 % (36.0-48.0); HEMOGLOBIN 11.8 g/dL (12-16); IMMATURE GRANULOCYTES 0.3 % (0-5); LYMPHOCYTE ABS# 0.64 10x3/uL (1.18-3.74); LYMPHOCYTES 6.4 % (15-50); MCH 33.9 pg (26.0-34.0); MCHC 32.2 g/dL (31.0-37.0); MCV 105.2 fL (80.0-100.0); MEAN PLATELET VOLUME 11.6 fL (7.4-10.4); NEUTROPHIL ABS# 8.59 10x3/uL (1.56-6.13); NEUTROPHILS 86.3 % (40-80); PLATELET COUNT 156 10x3/uL (130-400); RBC 3.48 10x6/uL (4.00-5.40); RDW 13.3 % (11.5-14.5)
[2020-10-24 06:13] LABS: CALC OSMOLALITY 281 mosm/kg (275-300); CALCIUM 8.3 mg/dL (8.5-10.1); CARBON DIOXIDE 26.8 mmol/L (21.0-32.0); CHLORIDE - SERUM 106 mmol/L (98-107); CREATININE - SERUM 0.7 mg/dL (0.6-1.3); GLUCOSE 107 mg/dL (74-106); MAGNESIUM - SERUM 1.6 mg/dL (1.8-2.4); PHOSPHOROUS 3.1 mg/dL (2.5-4.9); POTASSIUM - SERUM 3.9 mmol/L (3.5-5.1); SODIUM 141 mmol/L (136-145); UREA NITROGEN 16 mg/dL (7-18); eGFR NON AFRICAN AMERICAN 87 mL/min (90-120)
[2020-10-24 08:35] VITALS: BP 130/72
--- NOTE | 2020-10-24 12:08 | NUR ---
REHAB PRESCREEN ORDER RECEIVED. LOOKING IN CHART, PHYSICAL THERAPY BELIEVES PATIENT IS MORE SUITABLE FOR SNF, AND NOT OTHER DISCIPLINE ORDERED TO EVALUATE HER. AT THIS TIME SHE IS NOT SHOWING THE NEED FOR 3 HOURS OF THERAPY AT LEAST 5 DAYS A WEEK OR THE NEED FOR A REHAB PHYSICIAN TO SEE HER 3-5 TIMES A WEEK. THEREFORE, WE WILL NOT BE ABLE TO ACCEPT HER AT THIS TIME. IF THINGS CHANGE, PLEASE LET US KNOW. WE WOULD BE GLAD TO RE-EVALUATE AND SUBMIT FOR AUTH TO [facility] IF SHE IS APPROPRIATE. THANK YOU FOR THE REFERRAL. ONEYDA PETERSON RN CLINICAL LIAISON, INPATIENT REHAB.
[2020-10-24 12:52] VITALS: BP 133/87
[2020-10-24 17:23] VITALS: BP 161/75
--- NOTE | 2020-10-24 19:56 | NUR ---
0700 AWAKE ALERT REMAINS IN BED ELEVATED LEGS UP WITH PILLOW SUPPORT MEDIUM LOOSE STOOL NOTED AND PERFORMED LINEN CHANGE
[2020-10-24 20:00] VITALS: BP 132/77
--- NOTE | 2020-10-24 21:53 | NUR ---
ZBIGNIEW FOR PAIN IN WRISTS AND KNEES. UPRIGHT IN BED. NIGHT TIME MEDICATIONS ADMINISTERED WITH NO DIFFICULTIES. DENIES FURTHER NEEDS AT THIS TIME. BED IN LOWEST POSITION, BED RAILS X2, CALL LIGHT WITHIN REACH. WILL CONTINUE POC.
[2020-10-25] VITALS: BP 134/78
[2020-10-25 04:00] VITALS: BP 147/89
[2020-10-25 06:49] LABS: BASOPHILS 0 % (0-2); EOSINOPHILS 0.1 % (0-7); HEMATOCRIT 33.1 % (36.0-48.0); HEMOGLOBIN 10.8 g/dL (12-16); IMMATURE GRANULOCYTES 0.5 % (0-5); LYMPHOCYTE ABS# 0.61 10x3/uL (1.18-3.74); LYMPHOCYTES 7.9 % (15-50); MCH 33.9 pg (26.0-34.0); MCHC 32.6 g/dL (31.0-37.0); MCV 103.8 fL (80.0-100.0); MEAN PLATELET VOLUME 10.8 fL (7.4-10.4); MONOCYTES 7.7 % (2-11); NEUTROPHIL ABS# 6.43 10x3/uL (1.56-6.13); NEUTROPHILS 83.8 % (40-80); PLATELET COUNT 158 10x3/uL (130-400); RBC 3.19 10x6/uL (4.00-5.40); RDW 13.4 % (11.5-14.5); WBC 7.7 10x3/uL (4.8-10.8)
[2020-10-25 07:05] LABS: ANION GAP 12.9 mmol/L (8-16); CALCIUM 8.3 mg/dL (8.5-10.1); CARBON DIOXIDE 23.9 mmol/L (21.0-32.0); MAGNESIUM - SERUM 1.9 mg/dL (1.8-2.4); POTASSIUM - SERUM 3.8 mmol/L (3.5-5.1)
[2020-10-25 07:09] LABS: CREATININE - SERUM 0.9 mg/dL (0.6-1.3); PHOSPHOROUS 2.2 mg/dL (2.5-4.9)
--- NOTE | 2020-10-25 07:20 | NUR ---
PATIENT IS WITHOUT DISTRESS.ISOLATION MAINTAINED
[2020-10-25 08:52] VITALS: BP 178/98
[2020-10-25 13:07] VITALS: BP 166/93
--- NOTE | 2020-10-25 14:53 | NUR ---
Nutrition Follow-up: On enteric precautions for +CDT Diet: NPO, plans for colonoscopy tomorrow (previously Regular diet) PO intake: 100% all meals. Spoke with patient's student nurse outside of patient's room who states that patient is eating well. Last BM: x8 yesterday (liquid) Wt: 120# (10/22/20) Meds noted: probiotics, abx, 1/2NS@50 Labs noted: Glu 124(H), PO4 2.2(L) Recommend resume regular diet as soon as medically feasible after colonoscopy. RD will follow-up within 7 days.
[2020-10-25 16:53] VITALS: BP 175/96
[2020-10-25 20:00] VITALS: BP 152/87
[2020-10-26] VITALS (7 sets, daily range): BP systolic 143–192; BP diastolic 76–104
[2020-10-26 07:28] LABS: CALC OSMOLALITY 285 mosm/kg (275-300); CALCIUM 8.8 mg/dL (8.5-10.1); CARBON DIOXIDE 26.3 mmol/L (21.0-32.0); CHLORIDE - SERUM 108 mmol/L (98-107); CREATININE - SERUM 0.7 mg/dL (0.6-1.3); GLUCOSE 126 mg/dL (74-106); POTASSIUM - SERUM 3.6 mmol/L (3.5-5.1); SODIUM 141 mmol/L (136-145); UREA NITROGEN 21 mg/dL (7-18); eGFR NON AFRICAN AMERICAN 87 mL/min (90-120)
[2020-10-26 07:29] LABS: PHOSPHOROUS 2.9 mg/dL (2.5-4.9)
[2020-10-26 08:13] LABS: BASOPHILS 0 % (0-2); EOSINOPHILS 0 % (0-7); HEMATOCRIT 36.8 % (36.0-48.0); HEMOGLOBIN 12.1 g/dL (12-16); IMMATURE GRANULOCYTES 0.4 % (0-5); LYMPHOCYTE ABS# 0.63 10x3/uL (1.18-3.74); LYMPHOCYTES 11.9 % (15-50); MCH 33.6 pg (26.0-34.0); MCHC 32.9 g/dL (31.0-37.0); MCV 102.2 fL (80.0-100.0); NEUTROPHIL ABS# 4.49 10x3/uL (1.56-6.13); NEUTROPHILS 84.7 % (40-80); PLATELET COUNT 178 10x3/uL (130-400); RDW 13.3 % (11.5-14.5)
[2020-10-26 08:16] LABS: WBC 5.3 10x3/uL (4.8-10.8)
--- NOTE | 2020-10-26 09:48 | NUR ---
RECEIVED CALL TO PREOP PATIENT, ADMINISTERED PRE OP MEDS, PATIENT IN BED A SLEEP, CONTINUE WITH PLAN OF CARE
--- NOTE | 2020-10-26 16:48 | MORECARE ---
CASE MANAGEMENT DISCHARGE SUMMARY PATIENT: CHYNA LINO UNIT: [id number] ADM DATE: 10/25/20 AGE: 74 : 47 SEX: F ROOM/BED: [facility] AUTHOR: LUCIEN,DOC PHYSICIAN: REFERRING PHYSICIAN: OCTAVIA SANZ MD DATE OF SERVICE: 10/26/20 Case Management Discharge Planning Summary DCP REVIEW SUMMARY ANTICIPATED D/C DATE: EXPECTED LOS : CASE STATUS: DCP Initiated INITIAL REVIEW: 10/21/2020 INITIAL REVIEWER: Cristin Rosado FINAL DISCHARGE DISPOSITION: : FINAL REVIEWER: FINAL REVIEW DATE: DCP Focus Questions & Answers QUESTION: ANSWER : PATIENT: CHYNA LINO ENCOUNTER: [id number] MEDICAL RECORD#: [id number] ADMISSION DATE: 10/25/2020 DISCHARGE DATE: ATTENDING MD: OCTAVIA STANFORD : AGE: 74 MARITAL STATUS: S DC PLAN ID: [id number] FACILITY: [facility] PRINTED ON: 10/26/20 16:48 CT All edits/amendments must be made on the electronic document DICTATION DATE: 10/26/201647 GARNETT MACHINE OPERATOR HELPER: DM 10/26/201647 RPT#: [id number] DC DATE: STATUS: ADM IN [facility] [address] [place] [address] END OF REPORT
--- NOTE | 2020-10-26 17:00 | MORECARE ---
CASE MANAGEMENT DISCHARGE SUMMARY PATIENT: CHYNA LINO UNIT: [id number] ADM DATE: 10/25/20 AGE: 74 : 47 SEX: F ROOM/BED: D.2233 AUTHOR: MIRA MCGRAW PHYSICIAN: REFERRING PHYSICIAN: OCTAVIA SANZ MD DATE OF SERVICE: 10/26/20 Case Management Discharge Planning Summary DCP REVIEW SUMMARY ANTICIPATED D/C DATE: EXPECTED LOS : CASE STATUS: DCP Initiated INITIAL REVIEW: 10/21/2020 INITIAL REVIEWER: Cristin Rosado FINAL DISCHARGE DISPOSITION: : FINAL REVIEWER: FINAL REVIEW DATE: DCP Focus Questions & Answers DCP Screen QUESTION: ANSWER High Risk Factors: : Polypharmacy (greater than 10 meds) DCP Evaluation QUESTION: ANSWER Patient's current cognitive status: : *Oriented to person, place, situation, time and present Patient's ability to cope with chronic illness : b. Minimal (2 - 3 ED visits in 6 mos., limited financial resources, occasionally misses appts.) Functional screen assessment: : Can meet basic needs but may require referral for resources Family / Caregiver's ability to cope with chronic illness: : c. Inadequate (Enables pt. to make bad choices, cannot meet pt's. needs, difficult family dynamics) Physical Status: : Partial care dependence Physical Status: : Mobility impaired Is there a likelihood that the patient will require additional services to return to the preadmission environment? : Yes Functional screen comments: : STATES NEW ONSET WEEKNESS Living Arrangements: : Home Alone with Support Partial Dependence, assistance required for: : Bathing Partial Dependence, assistance required for: : Ambulation / Mobility Results of this evaluation have been discussed with: : Patient Patient with capacity for self-care or can be cared for in same environment as prior to hospitalization? : Yes Living arrangements comments: : ALONE, HAS [facility] THAT SENDS NURSING AID OUT DAILY Baseline cognitive status: : *Oriented to person, place, situation, time and present Comments: : ANTICIPATE HOME WITH CARE GIVERS AND HOME HEALTH Medication Management: : Evidence of Polypharmacy (greater than 10 meds) [facility](s): : [facility]/PCP IS DR. CAVANAUGH Would patient like to participate in any Care Coordination programs (if applicable): : Not applicable Does the patient have electricity at home? : Yes Does the patient have running water in their house? : Yes Equipment in use: : Wheelchair Equipment in use: : Walker - Rolling Equipment in use: : Nebulizer Equipment in use: : Home Oxygen with Nasal Cannula Equipment in use: : Cane - Single Leg Other Equipment comments: : WIC URINARY CATH Mental health screen: : No mental health history Psychosocial status: : Adult with physical limitations DCP Re-evaluation QUESTION: ANSWER Would patient like to participate in any Care Coordination programs (if applicable): : Not applicable PATIENT: CHYNA LINO ENCOUNTER: [id number] MEDICAL RECORD#: [id number] ADMISSION DATE: 10/25/2020 DISCHARGE DATE: ATTENDING MD: OCTAVIA STANFORD : AGE: 74 MARITAL STATUS: S DC PLAN ID: [id number] FACILITY: [facility] PRINTED ON: 10/26/20 17:00 CT All edits/amendments must be made on the electronic document DICTATION DATE: 10/26/201699 CUSTOMER SERVICE SECURITY OFFICER: VIMAL 10/26/201699 RPT#: [id number] DC DATE: STATUS: ADM IN [facility] [address] [place] [address] END OF REPORT
--- NOTE | 2020-10-26 17:21 | MORECARE ---
CASE MANAGEMENT DISCHARGE SUMMARY PATIENT: CHYNA LINO UNIT: [id number] ADM DATE: 10/25/20 AGE: 74 : 47 SEX: F ROOM/BED: D.2233 AUTHOR: LUCIEN,DOC PHYSICIAN: REFERRING PHYSICIAN: OCTAVIA SANZ MD DATE OF SERVICE: 10/26/20 Case Management Discharge Planning Summary COMMENTS ENTERED DATE: 10/26/20 16:59 CT COMMENT TYPE: Discharge Planning REVIEWER: Cristin Rosado CM met with patient at bedside after obtaining verbal consent. CM discussed availability / needs of home health, REHAB and medical equipment. CM MET WITH PATIENT AND PATIENT PLANS TO RETURN HOME WHEN BETTER. STATES HAS AN AID THAT COMES IN DAILY FROM [employer]. HAS EQUIPMENT AND HOME OXYGEN. MAY NEED HOME HEALTH WHEN DC'D TO HOME. STATES IS HAVING WEAKNESS. CM WILL FOLLOW AND ASSIST NEEDED. DCP REVIEW SUMMARY ANTICIPATED D/C DATE: EXPECTED LOS : CASE STATUS: DCP Initiated INITIAL REVIEW: 10/21/2020 INITIAL REVIEWER: Cristin Rosado FINAL DISCHARGE DISPOSITION: : FINAL REVIEWER: FINAL REVIEW DATE: DCP Focus Questions & Answers DCP Screen QUESTION: ANSWER High Risk Factors: : Polypharmacy (greater than 10 meds) DCP Evaluation QUESTION: ANSWER Patient's current cognitive status: : *Oriented to person, place, situation, time and present Patient's ability to cope with chronic illness : b. Minimal (2 - 3 ED visits in 6 mos., limited financial resources, occasionally misses appts.) Functional screen assessment: : Can meet basic needs but may require referral for resources Family / Caregiver's ability to cope with chronic illness: : c. Inadequate (Enables pt. to make bad choices, cannot meet pt's. needs, difficult family dynamics) Physical Status: : Partial care dependence Physical Status: : Mobility impaired Is there a likelihood that the patient will require additional services to return to the preadmission environment? : Yes Functional screen comments: : [place] NEW ONSET WEEKNESS Living Arrangements: : Home Alone with Support Partial Dependence, assistance required for: : Bathing Partial Dependence, assistance required for: : Ambulation / Mobility Results of this evaluation have been discussed with: : Patient Patient with capacity for self-care or can be cared for in same environment as prior to hospitalization? : Yes Living arrangements comments: : ALONE, HAS [employer] THAT SENDS NURSING AID OUT DAILY Baseline cognitive status: : *Oriented to person, place, situation, time and present Comments: : ANTICIPATE HOME WITH CARE GIVERS AND HOME HEALTH Medication Management: : Evidence of Polypharmacy (greater than 10 meds) [facility](s): : [facility]/PCP IS DR. CAVANAUGH Would patient like to participate in any Care Coordination programs (if applicable): : Not applicable Does the patient have electricity at home? : Yes Does the patient have running water in their house? : Yes Equipment in use: : Wheelchair Equipment in use: : Walker - Rolling Equipment in use: : Nebulizer Equipment in use: : Home Oxygen with Nasal Cannula Equipment in use: : Cane - Single Leg Other Equipment comments: : WIC URINARY CATH Mental health screen: : No mental health history Psychosocial status: : Adult with physical limitations DCP Re-evaluation QUESTION: ANSWER Would patient like to participate in any Care Coordination programs (if applicable): : Not applicable PATIENT: CHYNA LINO ENCOUNTER: [id number] MEDICAL RECORD#: [id number] ADMISSION DATE: 10/25/2020 DISCHARGE DATE: ATTENDING MD: OCTAVIA STANFORD : AGE: 74 MARITAL STATUS: S DC PLAN ID: [id number] FACILITY: [facility] PRINTED ON: 10/26/20 17:21 CT All edits/amendments must be made on the electronic document DICTATION DATE: 10/26/201720 CRIMINAL DEFENSE LAWYER: VIMAL 10/26/201720 RPT#: [id number] DC DATE: STATUS: ADM IN [place] [address] [place] [address] END OF REPORT
--- NOTE | 2020-10-26 19:14 | NUR ---
I have reviewed this patient and I concur with the Shift Assessment completed by the Licensed Practical Nurse today this shift.
--- NOTE | 2020-10-26 19:26 | NUR ---
PATIENT EGD AND COLONOSCOPY WAS CLEAR TODAY, CASE MANAGEMENT WORKING ON DC PLANNING. WENT AHEAD AND RESTARTED PATIENT DIET, NO OTHER NEEDS AT THIS TIME, CONTINUE WITH PLAN OF CARE
--- NOTE | 2020-10-27 03:15 | NUR ---
PT WITH SMALL INCONT SOFT STOOL, CLEAN AND CHANGE. PUREWICK WAS REPLACE. PT ENCOURAGE TO USE BED LIGHT TO USE BEDPAN. WILL CONT TO MONITOR.
[2020-10-27 04:00] VITALS: BP 107/67
[2020-10-27 06:26] LABS: BASOPHILS 0 % (0-2); EOSINOPHILS 0 % (0-7); HEMATOCRIT 34.8 % (36.0-48.0); HEMOGLOBIN 11.6 g/dL (12-16); IMMATURE GRANULOCYTES 0.2 % (0-5); LYMPHOCYTE ABS# 0.37 10x3/uL (1.18-3.74); LYMPHOCYTES 5.7 % (15-50); MCHC 33.3 g/dL (31.0-37.0); MCV 102.1 fL (80.0-100.0); MEAN PLATELET VOLUME 11.1 fL (7.4-10.4); MONOCYTES 10.3 % (2-11); NEUTROPHIL ABS# 5.44 10x3/uL (1.56-6.13); NEUTROPHILS 83.8 % (40-80); PLATELET COUNT 179 10x3/uL (130-400); RBC 3.41 10x6/uL (4.00-5.40); RDW 13.7 % (11.5-14.5); WBC 6.5 10x3/uL (4.8-10.8)
[2020-10-27 06:51] LABS: ANION GAP 12.8 mmol/L (8-16); CALCIUM 8.3 mg/dL (8.5-10.1); CARBON DIOXIDE 23.3 mmol/L (21.0-32.0); CREATININE - SERUM 0.8 mg/dL (0.6-1.3); MAGNESIUM - SERUM 1.8 mg/dL (1.8-2.4); PHOSPHOROUS 3.5 mg/dL (2.5-4.9); POTASSIUM - SERUM 3.1 mmol/L (3.5-5.1)
[2020-10-27 09:12] VITALS: BP 133/76
[2020-10-27] MEDS ORDERED: FLAGYL500 MG PO (13:12)
[2020-10-27] MEDS ORDERED: ARMOUR THYROID30 MG PO (13:16)
[2020-10-27 13:46] VITALS: BP 119/72
--- NOTE | 2020-10-27 13:55 | MORECARE ---
CASE MANAGEMENT DISCHARGE SUMMARY PATIENT: CHYNA LINO UNIT: [id number] ADM DATE: 10/25/20 AGE: 74 : 47 SEX: F ROOM/BED: D.2233 AUTHOR: LUCIEN,DOC PHYSICIAN: REFERRING PHYSICIAN: OCTAVIA SANZ MD DATE OF SERVICE: 10/27/20 Case Management Discharge Planning Summary COMMENTS ENTERED DATE: 10/26/20 16:59 CT COMMENT TYPE: Discharge Planning REVIEWER: Cristin Rosado CM met with patient at bedside after obtaining verbal consent. CM discussed availability / needs of home health, REHAB and medical equipment. CM MET WITH PATIENT AND PATIENT PLANS TO RETURN HOME WHEN BETTER. STATES HAS AN AID THAT COMES IN DAILY FROM [employer]. HAS EQUIPMENT AND HOME OXYGEN. MAY NEED HOME HEALTH WHEN DC'D TO HOME. STATES IS HAVING WEAKNESS. CM WILL FOLLOW AND ASSIST NEEDED. DCP REVIEW SUMMARY ANTICIPATED D/C DATE: EXPECTED LOS : CASE STATUS: DCP Initiated INITIAL REVIEW: 10/21/2020 INITIAL REVIEWER: Cristin Rosado FINAL DISCHARGE DISPOSITION: : FINAL REVIEWER: FINAL REVIEW DATE: DCP Focus Questions & Answers DCP Screen QUESTION: ANSWER High Risk Factors: : Polypharmacy (greater than 10 meds) DCP Evaluation QUESTION: ANSWER Patient's current cognitive status: : *Oriented to person, place, situation, time and present Patient's ability to cope with chronic illness : b. Minimal (2 - 3 ED visits in 6 mos., limited financial resources, occasionally misses appts.) Functional screen assessment: : Can meet basic needs but may require referral for resources Family / Caregiver's ability to cope with chronic illness: : c. Inadequate (Enables pt. to make bad choices, cannot meet pt's. needs, difficult family dynamics) Physical Status: : Partial care dependence Physical Status: : Mobility impaired Is there a likelihood that the patient will require additional services to return to the preadmission environment? : Yes Functional screen comments: : [place] NEW ONSET WEEKNESS Living Arrangements: : Home Alone with Support Partial Dependence, assistance required for: : Bathing Partial Dependence, assistance required for: : Ambulation / Mobility Results of this evaluation have been discussed with: : Patient Patient with capacity for self-care or can be cared for in same environment as prior to hospitalization? : Yes Living arrangements comments: : ALONE, HAS [employer] THAT SENDS NURSING AID OUT DAILY Baseline cognitive status: : *Oriented to person, place, situation, time and present Comments: : ANTICIPATE HOME WITH CARE GIVERS AND HOME HEALTH Medication Management: : Evidence of Polypharmacy (greater than 10 meds) Pharmacy name(s): : [facility]/PCP IS DR. CAVANAUGH Would patient like to participate in any Care Coordination programs (if applicable): : Not applicable Does the patient have electricity at home? : Yes Does the patient have running water in their house? : Yes Equipment in use: : Wheelchair Equipment in use: : Walker - Rolling Equipment in use: : Nebulizer Equipment in use: : Home Oxygen with Nasal Cannula Equipment in use: : Cane - Single Leg Other Equipment comments: : WIC URINARY CATH Mental health screen: : No mental health history Psychosocial status: : Adult with physical limitations DCP Re-evaluation QUESTION: ANSWER Would patient like to participate in any Care Coordination programs (if applicable): : Not applicable PATIENT: CHYNA LINO ENCOUNTER: [id number] MEDICAL RECORD#: [id number] ADMISSION DATE: 10/25/2020 DISCHARGE DATE: ATTENDING MD: OCTAVIA STANFORD : AGE: 74 MARITAL STATUS: S DC PLAN ID: [id number] FACILITY: [facility] PRINTED ON: 10/27/20 13:55 CT All edits/amendments must be made on the electronic document DICTATION DATE: 10/27/20 135 VALUE STREAM MANAGER: VIMAL 10/27/20 1355 RPT#: [id number] DC DATE: STATUS: ADM IN [place] [address] [place] [address] END OF REPORT
--- NOTE | 2020-10-27 15:56 | MORECARE ---
CASE MANAGEMENT DISCHARGE SUMMARY PATIENT: CHYNA LINO UNIT: [id number] ADM DATE: 10/25/20 AGE: 74 : 47 SEX: F ROOM/BED: D.2233 AUTHOR: LUCIEN,DOC PHYSICIAN: REFERRING PHYSICIAN: OCTAVIA SANZ MD DATE OF SERVICE: 10/27/20 Case Management Discharge Planning Summary COMMENTS ENTERED DATE: 10/27/20 15:48 CT COMMENT TYPE: Discharge Planning REVIEWER: Cristin Rosado PLAN FOR PATIENT TO DC TO HOME TODAY. I HAVE SENT A REFERRAL TO [facility] FOR HOME HEALTH. PATIENT HAS A NURSING AID THAT STAYS WITH HER DAILY FROM [facility]. CM TO FOLLOW AND ASSIST NEEDED. ENTERED DATE: 10/26/20 16:59 CT COMMENT TYPE: Discharge Planning REVIEWER: Cristin Rosado CM met with patient at bedside after obtaining verbal consent. CM discussed availability / needs of home health, REHAB and medical equipment. CM MET WITH PATIENT AND PATIENT PLANS TO RETURN HOME WHEN BETTER. STATES HAS AN AID THAT COMES IN DAILY FROM [employer]. HAS EQUIPMENT AND HOME OXYGEN. MAY NEED HOME HEALTH WHEN DC'D TO HOME. STATES IS HAVING WEAKNESS. CM WILL FOLLOW AND ASSIST NEEDED. DCP REVIEW SUMMARY ANTICIPATED D/C DATE: EXPECTED LOS : CASE STATUS: DCP Initiated INITIAL REVIEW: 10/21/2020 INITIAL REVIEWER: Cristin Rosado FINAL DISCHARGE DISPOSITION: : FINAL REVIEWER: FINAL REVIEW DATE: DCP Focus Questions & Answers DCP Screen QUESTION: ANSWER High Risk Factors: : Polypharmacy (greater than 10 meds) DCP Evaluation QUESTION: ANSWER Patient's current cognitive status: : *Oriented to person, place, situation, time and present Patient's ability to cope with chronic illness : b. Minimal (2 - 3 ED visits in 6 mos., limited financial resources, occasionally misses appts.) Functional screen assessment: : Can meet basic needs but may require referral for resources Family / Caregiver's ability to cope with chronic illness: : c. Inadequate (Enables pt. to make bad choices, cannot meet pt's. needs, difficult family dynamics) Physical Status: : Partial care dependence Physical Status: : Mobility impaired Is there a likelihood that the patient will require additional services to return to the preadmission environment? : Yes Functional screen comments: : STATES NEW ONSET WEEKNESS Living Arrangements: : Home Alone with Support Partial Dependence, assistance required for: : Bathing Partial Dependence, assistance required for: : Ambulation / Mobility Results of this evaluation have been discussed with: : Patient Patient with capacity for self-care or can be cared for in same environment as prior to hospitalization? : Yes Living arrangements comments: : ALONE, HAS [facility] THAT SENDS NURSING AID OUT DAILY Baseline cognitive status: : *Oriented to person, place, situation, time and present Comments: : ANTICIPATE HOME WITH CARE GIVERS AND HOME HEALTH Medication Management: : Evidence of Polypharmacy (greater than 10 meds) Pharmacy name(s): : [facility]/PCP IS DR. CAVANAUGH Would patient like to participate in any Care Coordination programs (if applicable): : Not applicable Does the patient have electricity at home? : Yes Does the patient have running water in their house? : Yes Equipment in use: : Wheelchair Equipment in use: : Walker - Rolling Equipment in use: : Nebulizer Equipment in use: : Home Oxygen with Nasal Cannula Equipment in use: : Cane - Single Leg Other Equipment comments: : WIC URINARY CATH Mental health screen: : No mental health history Psychosocial status: : Adult with physical limitations DCP Re-evaluation QUESTION: ANSWER Would patient like to participate in any Care Coordination programs (if applicable): : Not applicable PROVIDER NETWORKING REVIEW DATE: 10/27/2020 SERVICE TYPE: Home Health Care REVIEWER: Cristin Rosado PATIENT: CHYNA LINO ENCOUNTER: [id number] MEDICAL RECORD#: [id number] ADMISSION DATE: 10/25/2020 DISCHARGE DATE: ATTENDING MD: OCTAVIA STANFORD : AGE: 74 MARITAL STATUS: S DC PLAN ID: [id number] FACILITY: [facility] PRINTED ON: 10/27/20 15:56 CT All edits/amendments must be made on the electronic document DICTATION DATE: 10/27/201555 SOYBEAN GROWER: VIMAL 10/27/20 155 RPT#: [id number] DC DATE: STATUS: ADM IN [facility] [address] [place] [address] END OF REPORT
--- NOTE | 2020-10-27 16:35 | NUR ---
OT NOTE: PT REFUSED THERAPY TODAY.
--- NOTE | 2020-10-27 17:08 | MORECARE ---
CASE MANAGEMENT DISCHARGE SUMMARY PATIENT: CHYNA LINO UNIT: [id number] ADM DATE: 10/25/20 AGE: 74 : 47 SEX: F ROOM/BED: D.2233 AUTHOR: LUCIEN,DOC PHYSICIAN: REFERRING PHYSICIAN: OCTAVIA SANZ MD DATE OF SERVICE: 10/27/20 Case Management Discharge Planning Summary COMMENTS ENTERED DATE: 10/27/20 16:57 CT COMMENT TYPE: Discharge Planning REVIEWER: Cristin Ashlee SPOKE WITH PATIENT AND SHE STATES SHE DOESN'T FEEL SAFE GOING HOME AND WOULD LIKE TO DO REHAB AT [facility] OR [place] NOW. CHOICE LETTER AND IMM SIGNED. I AM FAXING REFERRAL TO THE [facility] AND ANTICIPATE CALL BACK IN MORNING. WILL NEED TO CHANGE DISCHARGE TO TOMORROW. CM TO FOLLOW AND ASSIST NEEDED. ENTERED DATE: 10/27/20 15:48 CT COMMENT TYPE: Discharge Planning REVIEWER: Cristin Ashlee PLAN FOR PATIENT TO DC TO HOME TODAY. I HAVE SENT A REFERRAL TO [facility] FOR HOME HEALTH. PATIENT HAS A NURSING AID THAT STAYS WITH HER DAILY FROM [employer]. CM TO FOLLOW AND ASSIST NEEDED. ENTERED DATE: 10/26/20 16:59 CT COMMENT TYPE: Discharge Planning REVIEWER: Cristin Rosado CM met with patient at bedside after obtaining verbal consent. CM discussed availability / needs of home health, REHAB and medical equipment. CM MET WITH PATIENT AND PATIENT PLANS TO RETURN HOME WHEN BETTER. STATES HAS AN AID THAT COMES IN DAILY FROM [employer]. HAS EQUIPMENT AND HOME OXYGEN. MAY NEED HOME HEALTH WHEN DC'D TO HOME. STATES IS HAVING WEAKNESS. CM WILL FOLLOW AND ASSIST NEEDED. DCP REVIEW SUMMARY ANTICIPATED D/C DATE: EXPECTED LOS : CASE STATUS: DCP Initiated INITIAL REVIEW: 10/21/2020 INITIAL REVIEWER: Cristin Rosado FINAL DISCHARGE DISPOSITION: : FINAL REVIEWER: FINAL REVIEW DATE: DCP Focus Questions & Answers DCP Screen QUESTION: ANSWER High Risk Factors: : Polypharmacy (greater than 10 meds) DCP Evaluation QUESTION: ANSWER Patient's current cognitive status: : *Oriented to person, place, situation, time and present Patient's ability to cope with chronic illness : b. Minimal (2 - 3 ED visits in 6 mos., limited financial resources, occasionally misses appts.) Functional screen assessment: : Can meet basic needs but may require referral for resources Family / Caregiver's ability to cope with chronic illness: : c. Inadequate (Enables pt. to make bad choices, cannot meet pt's. needs, difficult family dynamics) Physical Status: : Partial care dependence Physical Status: : Mobility impaired Is there a likelihood that the patient will require additional services to return to the preadmission environment? : Yes Functional screen comments: : STATES NEW ONSET WEEKNESS Living Arrangements: : Home Alone with Support Partial Dependence, assistance required for: : Bathing Partial Dependence, assistance required for: : Ambulation / Mobility Results of this evaluation have been discussed with: : Patient Patient with capacity for self-care or can be cared for in same environment as prior to hospitalization? : Yes Living arrangements comments: : ALONE, HAS [employer] THAT SENDS NURSING AID OUT DAILY Baseline cognitive status: : *Oriented to person, place, situation, time and present Comments: : ANTICIPATE HOME WITH CARE GIVERS AND HOME HEALTH Medication Management: : Evidence of Polypharmacy (greater than 10 meds) Pharmacy name(s): : [facility]/PCP IS DR. CAVANAUGH Would patient like to participate in any Care Coordination programs (if applicable): : Not applicable Does the patient have electricity at home? : Yes Does the patient have running water in their house? : Yes Equipment in use: : Wheelchair Equipment in use: : Walker - Rolling Equipment in use: : Nebulizer Equipment in use: : Home Oxygen with Nasal Cannula Equipment in use: : Cane - Single Leg Other Equipment comments: : WIC URINARY CATH Mental health screen: : No mental health history Psychosocial status: : Adult with physical limitations DCP Re-evaluation QUESTION: ANSWER Would patient like to participate in any Care Coordination programs (if applicable): : Not applicable PROVIDER NETWORKING REVIEW DATE: 10/27/2020 SERVICE TYPE: Home Health Care REVIEWER: Cristin Rosado PATIENT: CHYNA LINO ENCOUNTER: [id number] MEDICAL RECORD#: [id number] ADMISSION DATE: 10/25/2020 DISCHARGE DATE: ATTENDING MD: OCTAVIA SATNFORD : AGE: 74 MARITAL STATUS: S DC PLAN ID: [id number] FACILITY: [facility] PRINTED ON: 10/27/20 17:08 CT All edits/amendments must be made on the electronic document DICTATION DATE: 10/27/201707 HEADWAITRESS: VIMAL 10/27/201707 RPT#: [id number] DC DATE: STATUS: ADM IN [facility] [address] [place] [address] END OF REPORT
[2020-10-27 17:33] VITALS: BP 134/76
[2020-10-27 19:09] LABS: OVA + PARASITE EXAM Final report (())
[2020-10-28 06:20] LABS: BASOPHILS 0 % (0-2); EOSINOPHILS 0 % (0-7); HEMATOCRIT 35.6 % (36.0-48.0); IMMATURE GRANULOCYTES 0.2 % (0-5); LYMPHOCYTES 8.6 % (15-50); MCH 34.1 pg (26.0-34.0); MCHC 33.7 g/dL (31.0-37.0); MCV 101.1 fL (80.0-100.0); MEAN PLATELET VOLUME 10.7 fL (7.4-10.4); MONOCYTES 9.6 % (2-11); NEUTROPHILS 81.6 % (40-80); PLATELET COUNT 188 10x3/uL (130-400); RBC 3.52 10x6/uL (4.00-5.40); RDW 13.6 % (11.5-14.5); WBC 8.1 10x3/uL (4.8-10.8)
[2020-10-28 06:39] LABS: ALBUMIN 2.1 g/dL (3.4-5.0); ALKALINE PHOSPHATASE 63 U/L (30-120); ALT (SGPT) 13 U/L (10-68); BILIRUBIN - TOTAL 0.24 mg/dL (0.2-1.3); CALC OSMOLALITY 282 mosm/kg (275-300); CALCIUM 8.4 mg/dL (8.5-10.1); CARBON DIOXIDE 24.9 mmol/L (21.0-32.0); CHLORIDE - SERUM 108 mmol/L (98-107); CREATININE - SERUM 0.7 mg/dL (0.6-1.3); GLUCOSE 119 mg/dL (74-106); PROTEIN - SERUM 5.8 g/dL (6.4-8.2); SODIUM 140 mmol/L (136-145); UREA NITROGEN 22 mg/dL (7-18); eGFR NON AFRICAN AMERICAN 87 mL/min (90-120)
--- NOTE | 2020-10-28 07:18 | NUR ---
PATIENT CONTINUES TO HAVE DIARRHEA. MEDICATED FOR PAIN PER ORDERS.
[2020-10-28 10:42] VITALS: BP 164/99
[2020-10-28 13:29] VITALS: BP 146/80
--- NOTE | 2020-10-28 14:28 | MORECARE ---
CASE MANAGEMENT DISCHARGE SUMMARY PATIENT: CHYNA LINO UNIT: [id number] ADM DATE: 10/25/20 AGE: 74 : 47 SEX: F ROOM/BED: D.[facility] AUTHOR: LUCIEN,DOC PHYSICIAN: REFERRING PHYSICIAN: OCTAVIA SANZ MD DATE OF SERVICE: 10/28/20 Case Management Discharge Planning Summary COMMENTS ENTERED DATE: 10/28/20 14:16 CT COMMENT TYPE: Discharge Planning REVIEWER: Cristin Rosado PATIENT HAS NOW CHANGED HER MIND ON A REHAB FACILITY, WANTS [facility] IF [facility] NOT STARTED THE AUTH. [facility] ALREADY STARTED THE AUTH, SHE IS OKAY WITH GOING THERE. IMM AND BERNICE SIGNED AND PLACED ON CHART. PATIENT TO DC TO [facility] SOON AUTH. ENTERED DATE: 10/27/20 16:57 CT COMMENT TYPE: Discharge Planning REVIEWER: Cristin Rosado SPOKE WITH PATIENT AND SHE STATES SHE DOESN'T FEEL SAFE GOING HOME AND WOULD LIKE TO DO REHAB AT [facility] OR [facility] NOW. CHOICE LETTER AND IMM SIGNED. I AM FAXING REFERRAL TO [facility] AND ANTICIPATE CALL BACK IN MORNING. WILL NEED TO CHANGE DISCHARGE TO TOMORROW. CM TO FOLLOW AND ASSIST NEEDED. ENTERED DATE: 10/27/20 15:48 CT COMMENT TYPE: Discharge Planning REVIEWER: Cristin Rosado PLAN FOR PATIENT TO DC TO HOME TODAY. I HAVE SENT A REFERRAL TO [place] FOR HOME HEALTH. PATIENT HAS A NURSING AID THAT STAYS WITH HER DAILY FROM [facility]. CM TO FOLLOW AND ASSIST NEEDED. ENTERED DATE: 10/26/20 16:59 CT COMMENT TYPE: Discharge Planning REVIEWER: Cristin Rosado CM met with patient at bedside after obtaining verbal consent. CM discussed availability / needs of home health, REHAB and medical equipment. CM MET WITH PATIENT AND PATIENT PLANS TO RETURN HOME WHEN BETTER. STATES HAS AN AID THAT COMES IN DAILY FROM [employer]. HAS EQUIPMENT AND HOME OXYGEN. MAY NEED HOME HEALTH WHEN DC'D TO HOME. STATES IS HAVING WEAKNESS. CM WILL FOLLOW AND ASSIST NEEDED. DCP REVIEW SUMMARY ANTICIPATED D/C DATE: EXPECTED LOS : CASE STATUS: DCP Initiated INITIAL REVIEW: 10/21/2020 INITIAL REVIEWER: Cristin Rosado FINAL DISCHARGE DISPOSITION: : FINAL REVIEWER: FINAL REVIEW DATE: DCP Focus Questions & Answers DCP Screen QUESTION: ANSWER High Risk Factors: : Polypharmacy (greater than 10 meds) DCP Evaluation QUESTION: ANSWER Patient's ability to cope with chronic illness : b. Minimal (2 - 3 ED visits in 6 mos., limited financial resources, occasionally misses appts.) Patient's current cognitive status: : *Oriented to person, place, situation, time and present Physical Status: : Mobility impaired Physical Status: : Partial care dependence Family / Caregiver's ability to cope with chronic illness: : c. Inadequate (Enables pt. to make bad choices, cannot meet pt's. needs, difficult family dynamics) Functional screen assessment: : Can meet basic needs but may require referral for resources Partial Dependence, assistance required for: : Ambulation / Mobility Partial Dependence, assistance required for: : Bathing Living Arrangements: : Home Alone with Support Is there a likelihood that the patient will require additional services to return to the preadmission environment? : Yes Functional screen comments: : STATES NEW ONSET WEEKNESS Living arrangements comments: : ALONE, HAS [employer] THAT SENDS NURSING AID OUT DAILY Baseline cognitive status: : *Oriented to person, place, situation, time and present Patient with capacity for self-care or can be cared for in same environment as prior to hospitalization? : Yes Results of this evaluation have been discussed with: : Patient Comments: : ANTICIPATE HOME WITH CARE GIVERS AND HOME HEALTH Medication Management: : Evidence of Polypharmacy (greater than 10 meds) Pharmacy name(s): : [facility]/PCP IS DR. CAVANAUGH Would patient like to participate in any Care Coordination programs (if applicable): : Not applicable Does the patient have electricity at home? : Yes Does the patient have running water in their house? : Yes Equipment in use: : Cane - Single Leg Equipment in use: : Home Oxygen with Nasal Cannula Equipment in use: : Nebulizer Equipment in use: : Walker - Rolling Equipment in use: : Wheelchair Other Equipment comments: : WIC URINARY CATH Mental health screen: : No mental health history Psychosocial status: : Adult with physical limitations DCP Re-evaluation QUESTION: ANSWER Would patient like to participate in any Care Coordination programs (if applicable): : Not applicable PROVIDER NETWORKING REVIEW DATE: 10/27/2020 SERVICE TYPE: Home Health Care REVIEWER: Cristin Rosado REVIEW DATE: 10/28/2020 SERVICE TYPE: Fdc Facility REVIEWER: Cristin Rosado PATIENT: CHYNA LINO ENCOUNTER: [id number] MEDICAL RECORD#: [id number] ADMISSION DATE: 10/25/2020 DISCHARGE DATE: ATTENDING MD: OCTAVIA STANFORD : AGE: 74 MARITAL STATUS: S DC PLAN ID: [id number] FACILITY: [facility] PRINTED ON: 10/28/20 14:27 CT All edits/amendments must be made on the electronic document DICTATION DATE: 10/28/201426 SUPERINTENDENT COMMISSARY: DM 10/28/20 142 RPT#: [id number] DC DATE: STATUS: ADM IN [facility] [address] [place] [address] END OF REPORT
--- NOTE | 2020-10-28 14:46 | NUR ---
OT NOTE: PT COMPLETED BED MOB WITH MIN A. PT COMPLETED EOB SITTING WITH SBA. PT COMPLETED LB HYGIENE WITH ENRRIQUE A. NOTIFIED NURSING OF SKIN BREAKDOWN ON BUTTOCKS. [id number] HANNAH HAYS COTA
[2020-10-28 17:41] VITALS: BP 100/59
[2020-10-28 20:35] VITALS: BP 130/86
--- NOTE | 2020-10-28 22:43 | NUR ---
PATIENT CONTINUES TO HAVE DIARRHEA. REPORTED BACK PAIN, MEDICATED PER ORDERS.
[2020-10-29 05:09] LABS: BASOPHILS 0 % (0-2); EOSINOPHILS 0 % (0-7); HEMATOCRIT 33.4 % (36.0-48.0); HEMOGLOBIN 10.9 g/dL (12-16); IMMATURE GRANULOCYTES 0.2 % (0-5); LYMPHOCYTE ABS# 0.67 10x3/uL (1.18-3.74); LYMPHOCYTES 10.1 % (15-50); MCH 33.3 pg (26.0-34.0); MCHC 32.6 g/dL (31.0-37.0); MCV 102.1 fL (80.0-100.0); MEAN PLATELET VOLUME 10.7 fL (7.4-10.4); MONOCYTES 11.5 % (2-11); NEUTROPHIL ABS# 5.18 10x3/uL (1.56-6.13); NEUTROPHILS 78.2 % (40-80); PLATELET COUNT 182 10x3/uL (130-400); RBC 3.27 10x6/uL (4.00-5.40); RDW 13.6 % (11.5-14.5); WBC 6.6 10x3/uL (4.8-10.8)
[2020-10-29 05:30] LABS: ALBUMIN 2.1 g/dL (3.4-5.0); ANION GAP 10.1 mmol/L (8-16); BILIRUBIN - TOTAL 0.3 mg/dL (0.2-1.3); CARBON DIOXIDE 25.8 mmol/L (21.0-32.0); CREATININE - SERUM 0.8 mg/dL (0.6-1.3); POTASSIUM - SERUM 3.9 mmol/L (3.5-5.1); PROTEIN - SERUM 5.5 g/dL (6.4-8.2)
[2020-10-29 05:53] VITALS: BP 174/98
--- NOTE | 2020-10-29 07:30 | NUR ---
AWAKE AND ALERT. ORIENTED X3. REQUESTED AND GIVEN ONE FLEXERIL PO FOR C/O BACK PAIN. WILL MONITOR. LUNGS ARE CLEAR BIALTERALLY, NO COUGH NOTED. SKIN IS INTACT WITHOUT REDNESS. C/O SOME REDNESS TO ROSIO AREA. BUTT BALM APPLIED TO SAME. WILL MONITOR. IV TO RIGHT WRIST IS PATENT WITHOUT REDNESS AT INSERTION SITE. DENIES FURTHER NEEDS.
[2020-10-29 08:52] VITALS: BP 151/93
--- NOTE | 2020-10-29 10:00 | NUR ---
ATE MOST OF BREAKFAST. TOOK AM MEDS WITHOUT DIFFICULTY. HAD MODERATE AMOUNT OF LOOSE WATERY GREEN STOOL. SKIN CARE PER STAFF. ROSIO AREA IS REDDENED AND ANGRY. WILL ASK MD FOR MEDICINE.
--- NOTE | 2020-10-29 11:36 | NUR ---
REQUESTED AND GIVEN ONE HYDROCODONE PO FOR C/O BILATERAL KNEE PAIN LEVEL 10. WILL MONITOR.
[2020-10-29 11:45] VITALS: BP 141/89
--- NOTE | 2020-10-29 12:24 | NUR ---
HAD LOOSE STOOL, DARK GREEN WITH SOME SOLID TO IT. SKIN CARE PER STAFF.
[2020-10-29 16:50] VITALS: BP 163/96
--- NOTE | 2020-10-29 18:43 | NUR ---
ATE ALL OF SUPPER. DENIES NEEDS. NO CHANGES NOTED.CONTINUES INCONTINENT AT THIS TIME.
[2020-10-30 05:20] LABS: BASOPHILS 0 % (0-2); EOSINOPHILS 0 % (0-7); HEMATOCRIT 34.7 % (36.0-48.0); HEMOGLOBIN 11.6 g/dL (12-16); IMMATURE GRANULOCYTES 0.4 % (0-5); LYMPHOCYTE ABS# 0.89 10x3/uL (1.18-3.74); LYMPHOCYTES 15.7 % (15-50); MCH 33.8 pg (26.0-34.0); MCHC 33.4 g/dL (31.0-37.0); MCV 101.2 fL (80.0-100.0); MEAN PLATELET VOLUME 10.5 fL (7.4-10.4); MONOCYTES 10.4 % (2-11); NEUTROPHIL ABS# 4.16 10x3/uL (1.56-6.13); NEUTROPHILS 73.5 % (40-80); PLATELET COUNT 199 10x3/uL (130-400); RBC 3.43 10x6/uL (4.00-5.40); RDW 13.6 % (11.5-14.5); WBC 5.7 10x3/uL (4.8-10.8)
[2020-10-30 05:49] LABS: ANION GAP 11.7 mmol/L (8-16); BILIRUBIN - TOTAL 0.28 mg/dL (0.2-1.3); CALCIUM 8.3 mg/dL (8.5-10.1); CARBON DIOXIDE 24.8 mmol/L (21.0-32.0); CREATININE - SERUM 0.8 mg/dL (0.6-1.3); PROTEIN - SERUM 5.6 g/dL (6.4-8.2)
[2020-10-30 05:52] LABS: POTASSIUM - SERUM 4.5 mmol/L (3.5-5.1)
--- NOTE | 2020-10-30 07:27 | NUR ---
AWAKE AND ALERT. ORIENTED X3. NO C/O AT THIS TIME. LUNGS HAVE FAINT WHEEZES IN LOWER LOBES. ENCOURAGED TO USE IS INSTRUCTED. SKIN IS INTACT WITH SOME REDNESS NOTED TO ROSIO AREA, THIS IS IMPROVED FROM YESTERDAY. IV TO RIGHT WRIST IS PATENT WITHOUT REDNESS AT INSERTION SITE. DENIES NEEDS.
--- NOTE | 2020-10-30 10:00 | NUR ---
REQUESTED AND GIVEN ONE HYDROCODONE PO FOR C/O BILATERAL KNEE PAIN LEVEL 10. WILL MONITOR. ATE ALL OF BREAKFAST. TOOK AM MEDS WTIHOUT DIFFICULTY. DENIES NEEDS.
[2020-10-30 10:56] VITALS: BP 167/91
[2020-10-30 14:36] VITALS: BP 126/77
[2020-10-30 17:43] VITALS: BP 121/71
--- NOTE | 2020-10-30 18:29 | NUR ---
SITTING UP IN BED EATING SUPPER. VISITOR AT BEDSIDE. NO CHANGES NOTED DENIES NEEDS.
[2020-10-31 06:59] LABS: BASOPHILS 0 % (0-2); EOSINOPHILS 0.3 % (0-7); HEMATOCRIT 33.7 % (36.0-48.0); HEMOGLOBIN 11.1 g/dL (12-16); IMMATURE GRANULOCYTES 0.3 % (0-5); LYMPHOCYTE ABS# 1.06 10x3/uL (1.18-3.74); LYMPHOCYTES 17.7 % (15-50); MCH 33.2 pg (26.0-34.0); MCHC 32.9 g/dL (31.0-37.0); MCV 100.9 fL (80.0-100.0); MEAN PLATELET VOLUME 10.5 fL (7.4-10.4); MONOCYTES 9.7 % (2-11); PLATELET COUNT 237 10x3/uL (130-400); RBC 3.34 10x6/uL (4.00-5.40); RDW 13.5 % (11.5-14.5)
[2020-10-31 07:12] LABS: ANION GAP 11.3 mmol/L (8-16); BILIRUBIN - TOTAL 0.22 mg/dL (0.2-1.3); CALCIUM 8.1 mg/dL (8.5-10.1); CARBON DIOXIDE 26.1 mmol/L (21.0-32.0); CREATININE - SERUM 0.8 mg/dL (0.6-1.3); POTASSIUM - SERUM 4.4 mmol/L (3.5-5.1); PROTEIN - SERUM 4.9 g/dL (6.4-8.2)
--- NOTE | 2020-10-31 07:24 | NUR ---
PATIENT ASLEEP IN BED, EASILY AWAKENED FOR ASSESSMENT. STATES SHE IS HAVING SOME PAIN IN HER KNEES AND BACK THIS MORNING. WILL ADMINISTER PRN MEDICATION WITH SCHEDULED MEDS. COTLAURANUE WITH PLAN OF CARE
[2020-10-31 08:52] VITALS: BP 152/89
--- NOTE | 2020-10-31 11:37 | NUR ---
I have reviewed this patient and I concur with the Shift Assessment completed by the Licensed Practical Nurse today this shift.
[2020-10-31 12:48] VITALS: BP 132/85
[2020-10-31] MEDS ORDERED: PROTONIX40 MG PO (14:57)
[2020-10-31] MEDS ORDERED: SINGULAIR10 MG PO (14:57)
[2020-10-31] MEDS ORDERED: QUESTRAN PACKET PO (14:57)
[2020-10-31] MEDS ORDERED: NYSTATIN1 PWD TOPICAL (14:57)
[2020-10-31] MEDS ORDERED: CALMOSEPTINE OI71 GM TOPICAL (14:57)
[2020-10-31] MEDS ORDERED: MUCINEX600 MG PO (14:57)
[2020-10-31] MEDS ORDERED: TYLENOL W/CODEI1 TAB PO (15:12)
--- NOTE | 2020-10-31 15:20 | NUR ---
ASSISTED PATIENT INTO GETTING CHANGED FOR DISCHARGE, ASSISTED PATIENT ON BED PLATA AND NOTICED SHE HAS A SKIN TEAR ON LEFT BUTOCK, IV DC WITH CATHETER INTACT. REPORT CALLED TO [facility]
--- NOTE | 2020-10-31 15:49 | NUR ---
OT NOTE: PT COMPLETED SIDE ROLLING WITH MIN A. PT COMPLETED LB HYGIENE WITH MAX A. PT COMPLETED EOB SITTING WITH SPV. [phone] HANNAH HAYS COTA
--- NOTE | 2020-10-31 16:00 | NUR ---
CALLED AND GAVE REPORT TO KARLEE AT THE [facility], PATIENT PICKED UP BY [facility]
--- NOTE | 2020-11-01 14:02 | MORECARE ---
CASE MANAGEMENT DISCHARGE SUMMARY PATIENT: CHYNA LINO UNIT: [id number] ADM DATE: 10/25/20 AGE: 74 : 47 SEX: F ROOM/BED: D.[facility] AUTHOR: LUCIEN,DOC PHYSICIAN: REFERRING PHYSICIAN: OCTAVIA SANZ MD DATE OF SERVICE: 11/01/20 Case Management Discharge Planning Summary COMMENTS ENTERED DATE: 10/28/20 14:16 CT COMMENT TYPE: Discharge Planning REVIEWER: Cristin Rosado PATIENT HAS NOW CHANGED HER MIND ON A REHAB FACILITY, WANTS [facility] IF [facility] NOT STARTED THE AUTH. THE [facility] HAS ALREADY STARTED THE AUTH, SHE IS OKAY WITH GOING THERE. IMM AND BERNICE SIGNED AND PLACED ON CHART. PATIENT TO DC TO THE [facility] SOON AUTH. ENTERED DATE: 10/27/20 16:57 CT COMMENT TYPE: Discharge Planning REVIEWER: Cristin Rosado SPOKE WITH PATIENT AND SHE STATES SHE DOESN'T FEEL SAFE GOING HOME AND WOULD LIKE TO DO REHAB AT THE [facility] OR [facility] NOW. CHOICE LETTER AND IMM SIGNED. I AM FAXING REFERRAL TO THE [facility] AND ANTICIPATE CALL BACK IN MORNING. WILL NEED TO CHANGE DISCHARGE TO TOMORROW. CM TO FOLLOW AND ASSIST NEEDED. ENTERED DATE: 10/27/20 15:48 CT COMMENT TYPE: Discharge Planning REVIEWER: Cristin Rosado PLAN FOR PATIENT TO DC TO HOME TODAY. I HAVE SENT A REFERRAL TO [facility] FOR HOME HEALTH. PATIENT HAS A NURSING AID THAT STAYS WITH HER DAILY FROM [facility]. CM TO FOLLOW AND ASSIST NEEDED. ENTERED DATE: 10/26/20 16:59 CT COMMENT TYPE: Discharge Planning REVIEWER: Cristin Rosado CM met with patient at bedside after obtaining verbal consent. CM discussed availability / needs of home health, REHAB and medical equipment. CM MET WITH PATIENT AND PATIENT PLANS TO RETURN HOME WHEN BETTER. STATES HAS AN AID THAT COMES IN DAILY FROM [facility]. HAS EQUIPMENT AND HOME OXYGEN. MAY NEED HOME HEALTH WHEN DC'D TO HOME. STATES IS HAVING WEAKNESS. CM WILL FOLLOW AND ASSIST NEEDED. DCP REVIEW SUMMARY ANTICIPATED D/C DATE: EXPECTED LOS : CASE STATUS: DCP Initiated INITIAL REVIEW: 10/21/2020 INITIAL REVIEWER: Cristin Rosado FINAL DISCHARGE DISPOSITION: : FINAL REVIEWER: FINAL REVIEW DATE: DCP Focus Questions & Answers DCP Screen QUESTION: ANSWER High Risk Factors: : Polypharmacy (greater than 10 meds) DCP Evaluation QUESTION: ANSWER Patient's ability to cope with chronic illness : b. Minimal (2 - 3 ED visits in 6 mos., limited financial resources, occasionally misses appts.) Patient's current cognitive status: : *Oriented to person, place, situation, time and present Physical Status: : Mobility impaired Physical Status: : Partial care dependence Family / Caregiver's ability to cope with chronic illness: : c. Inadequate (Enables pt. to make bad choices, cannot meet pt's. needs, difficult family dynamics) Functional screen assessment: : Can meet basic needs but may require referral for resources Partial Dependence, assistance required for: : Ambulation / Mobility Partial Dependence, assistance required for: : Bathing Living Arrangements: : Home Alone with Support Functional screen comments: : STATES NEW ONSET WEEKNESS Is there a likelihood that the patient will require additional services to return to the preadmission environment? : Yes Baseline cognitive status: : *Oriented to person, place, situation, time and present Living arrangements comments: : ALONE, HAS [employer] THAT SENDS NURSING AID OUT DAILY Patient with capacity for self-care or can be cared for in same environment as prior to hospitalization? : Yes Results of this evaluation have been discussed with: : Patient Comments: : ANTICIPATE HOME WITH CARE GIVERS AND HOME HEALTH Medication Management: : Evidence of Polypharmacy (greater than 10 meds) Pharmacy name(s): : [facility]/PCP IS DR. CAVANAUGH Would patient like to participate in any Care Coordination programs (if applicable): : Not applicable Does the patient have electricity at home? : Yes Does the patient have running water in their house? : Yes Equipment in use: : Cane - Single Leg Equipment in use: : Home Oxygen with Nasal Cannula Equipment in use: : Nebulizer Equipment in use: : Walker - Rolling Equipment in use: : Wheelchair Other Equipment comments: : WIC URINARY CATH Mental health screen: : No mental health history Psychosocial status: : Adult with physical limitations DCP Re-evaluation QUESTION: ANSWER Would patient like to participate in any Care Coordination programs (if applicable): : Not applicable PROVIDER NETWORKING REVIEW DATE: 10/27/2020 SERVICE TYPE: Home Health Care REVIEWER: Cristin Rosado REVIEW DATE: 10/28/2020 SERVICE TYPE: Long-Term Facility REVIEWER: Cristin Rosado PATIENT: CHYNA LINO ENCOUNTER: [id number] MEDICAL RECORD#: [id number] ADMISSION DATE: 10/25/2020 DISCHARGE DATE: 10/31/2020 ATTENDING MD: OCTAVIA STANFORD : AGE: 74 MARITAL STATUS: S DC PLAN ID: [id number] FACILITY: [facility] PRINTED ON: 11/01/20 14:02 CT All edits/amendments must be made on the electronic document DICTATION DATE: 11/01/201401 PIECE PRESSER: DM 11/01/20 140 RPT#: [id number] DC DATE:10/31/20 STATUS: DIS IN [facility] [address] [place] [address] END OF REPORT
== END 2020-10-31 16:49 | DRG 371 ==
LOC: D.ER 12:14 → D.MS 16:50 → OBSVTIME 16:50 → D.MS 16:50
PROVIDERS: Family Medicine; Orthopaedic Surgery; Surgery; ADMIT Emergency Medicine; ATTEND Emergency Medicine
PROC: 0D758ZZ Dilation of Esophagus, Via Natural or Artificial Opening Endoscopic (ICD-10-PCS; 2020-10-26)
PROC: 0DJD8ZZ Inspection of Lower Intestinal Tract, Via Natural or Artificial Opening Endoscopic (ICD-10-PCS; principal; 2020-10-26 10:00)
DX: A04.72 Enterocolitis due to Clostridium difficile, not specified as recurrent (principal); E43 Unspecified severe protein-calorie malnutrition; F17.203 Nicotine dependence unspecified, with withdrawal; Z68.1 Body mass index [BMI] 19.9 or less, adult; N39.0 Urinary tract infection, site not specified; R53.1 Weakness; G72.89 Other specified myopathies; I10 Essential (primary) hypertension; R62.7 Adult failure to thrive; I95.9 Hypotension, unspecified; E03.9 Hypothyroidism, unspecified; K22.2 Esophageal obstruction; M19.90 Unspecified osteoarthritis, unspecified site; J44.9 Chronic obstructive pulmonary disease, unspecified; E78.5 Hyperlipidemia, unspecified; W19.XXXA Unspecified fall, initial encounter